=== PATIENT | female | born 1955 | race Hispanic/Latino ===

== ENCOUNTER 2018-06-01 08:54 | Outpatient (CLI) | payer MEDICARE ==
--- NOTE | 2018-06-02 07:59 | Magnetic Resonance Report ---
MR LOWER EXTREMITY NON-JOINT LEFT WITHOUT CONTRAST History: Mass in mid left thigh. Technique: Multisequence, multiplanar MRI without contrast was performed through the left thigh. Findings: No comparison. A marker has been placed in the posterior left thigh. Underlying this marker, there is moderate nonspecific subcutaneous edema suggesting a cellulitis. No IV contrast was administered which limits this exam but there is no evidence for mass or obvious fluid collection/abscess. There is normal signal within the right thigh musculature. The left femur is intact although there is suggestion of a chronic bony infarct in the distal femoral metaphysis which is incompletely evaluated on this exam. A moderate to large left knee effusion is also identified. Impression: Nonspecific subcutaneous edema in the posterior left thigh suggestive of a cellulitis. No obvious mass or abscess. 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 Moderate to large left knee effusion.
== END 2018-06-01 08:55 | disposition home or self-care (01) ==
LOC: MRI 08:54
PROVIDERS: ATTEND Surgery
DX: M25.462 Effusion, left knee (principal); J44.9 Chronic obstructive pulmonary disease, unspecified; E66.9 Obesity, unspecified; K21.9 Gastro-esophageal reflux disease without esophagitis; I11.0 Hypertensive heart disease with heart failure; I50.32 Chronic diastolic (congestive) heart failure; E11.9 Type 2 diabetes mellitus without complications; Z90.710 Acquired absence of both cervix and uterus; M19.90 Unspecified osteoarthritis, unspecified site

== ENCOUNTER 2018-06-15 12:11 | Emergency (ER) | payer MEDICARE ==
[2018-06-15] MEDS ORDERED: SOLU-Medrol IV ONE (12:35)
[2018-06-15] MEDS ORDERED: PROVENTIL IH ONE (12:35)
--- NOTE | 2018-06-15 12:36 | Emergency Department Report ---
ED General Adult HPI - General Chief complaint: Dyspnea/Respdistress Stated complaint: Time Seen by Provider: 06/15/18 12:26 Source: patient, RN notes reviewed, old records reviewed Mode of arrival: Stretcher Limitations: No Limitations - History of Present Illness Initial comments: Pulmonology: Dr. Julio Food Tray Assembler: Dr. Che This is a 63-year-old female with a past medical history of arthritis, asthma, congestive heart failure, COPD, home oxygen dependent, IVC filter, chronic respiratory failure on 3 L of home oxygen. Patient presents to the ER with a complaint of cough, shortness of breath and mucus production as well as sore throat. She reports a sore throat that started a few days ago, and began dripping "mucous and cold" into the back of her throat. She is being coughing more frequently and having increasing shortness of breath. She denies vomiting, diaphoresis. She has mild baseline lower extremity swelling which is not a new, worsening or different. She denies headache, neck pain, chest pain, abdominal pain, urinary symptoms. She has some chest wall discomfort with coughing, but otherwise does not have chest pain. Her symptoms are constant for the past couple days, they're not improving, they do not have exacerbating or relieving factors that she is aware of, they do not radiate anywhere. -: Gradual Location: mouth Quality: aching Consistency: constant Improves with: none Worsens with: none Associated Symptoms: cough, shortness of breath (acute on chronic), weakness ( chronic). denies: confusion, chest pain, diaphoresis, fever/chills, headaches, loss of appetite, malaise, nausea/vomiting, rash, seizure, syncope - Related Data Home Medications Medication Instructions Recorded Confirmed Last Taken Cholecalciferol (Vitamin D3) 50,000 unit PO QWEEK 09/05/13 02/25/18 01/03/14 [Vitamin D3] Loratadine [Claritin] 10 mg PO DAILY 09/05/13 02/25/18 01/10/14 Vitamin B 12 1,000 mcg PO DAILY 09/05/13 02/25/18 01/10/14 Carboxymethylcell/Glycerin/Pf 1 - 2 drop OU QID 11/04/14 02/25/18 Unknown [Refresh Optive Sensitive Drops 0.5/0.9%] Hydrocortisone [Proctozone-HC 2.5% 30 gm RC QDAY PRN 11/04/14 02/25/18 Unknown CREAM] Cyclobenzaprine HCl [Flexeril 5 MG 10 mg PO QHS 08/01/15 02/25/18 Unknown TAB] Montelukast [Singulair] 10 mg PO QDAY 12/29/15 02/25/18 Unknown Morphine ER [Ms Contin ER] 15 mg PO Q12H PRN 12/29/15 02/25/18 Unknown Calcium Carbonate [Tums] 200 mg PO Q6H PRN 05/23/16 02/25/18 Unknown Docusate Sodium [Colace CAP] 100 mg PO BID 02/25/18 02/25/18 Unknown Previous Rx's Medication Instructions Recorded Last Taken Type Lacosamide [Vimpat] 50 mg PO Q12HR #60 tablet 01/02/16 Unknown Rx ALBUTEROL NEB's [Proventil 0.083% 2.5 mg IH QIDRT nebu 03/01/18 Unknown Rx NEBS] Albuterol Sulfate [Albuterol 0.63% 0.63 mg IH TID PRN #100 vial.neb 03/01/18 Unknown Rx NEBS] Cyanocobalamin [Vitamin B-12] 1,000 mcg PO QDAY tablet 03/01/18 Unknown Rx Diltiazem HCl [Diltiazem ER] 120 mg PO DAILY #30 cap.er.deg 03/01/18 Unknown Rx Ergocalciferol [Vitamin D2] 50,000 unit PO Tu capsule 03/01/18 Unknown Rx Hypromellose [Isopto Tears 0.5%] 1 drops OU QID bottle 03/01/18 Unknown Rx Insulin Regular, Human Inj 5 unit SQ QAM #3 ml 03/01/18 Unknown Rx [NovoLIN R Inj] Lispro Insulin [Humalog] 0 unit SUB-Q ACHS units 03/01/18 Unknown Rx Montelukast [Singulair] 10 mg PO QPM #30 tablet 03/01/18 Unknown Rx PARoxetine [Paxil] 30 mg PO DAILY tablet 03/01/18 Unknown Rx Pantoprazole [Protonix TAB] 40 mg PO QDAY #30 tablet 03/01/18 Unknown Rx Potassium Chloride [K-Dur] 10 meq PO QDAY #30 tablet 03/01/18 Unknown Rx Tiotropium [Spiriva] 18 mcg IH QDAY #1 cap 03/01/18 Unknown Rx Torsemide [Demadex] 20 mg PO DAILY #30 tablet 03/01/18 Unknown Rx dilTIAZem CD [Cardizem CD] 120 mg PO QDAY capsule 03/01/18 Unknown Rx predniSONE [Prednisone] 20 mg PO DAILY #30 tab.ds.pk 03/01/18 Unknown Rx traZODone [Desyrel] 50 mg PO QHS tablet 03/01/18 Unknown Rx Arformoterol Nebu [Brovana Nebu] 15 mcg IH Q12HRT #60 ml 03/03/18 Unknown Rx Budesonide [Pulmicort Respules] 0.5 mg IH Q12HRT #60 nebu 03/03/18 Unknown Rx LORazepam [Ativan] 0.5 mg PO TID #21 tablet 03/03/18 Unknown Rx metOLazone [Zaroxolyn] 5 mg PO QDAY #30 tablet 03/03/18 Unknown Rx Albuterol Sulfate [Albuterol 0.63% 0.63 mg IH Q4HR PRN #2 ml 06/15/18 Unknown Rx NEBS] Albuterol Sulfate [Proair 90 mcg IH Q4HR PRN #2 aer.pow.ba 06/15/18 Unknown Rx Respiclick] Allergies Allergy/AdvReac Type Severity Reaction Status Date / Time aspartame Allergy Severe Anaphylaxis Verified 12/07/14 10:47 aspirin Allergy Severe Swelling Verified 12/07/14 10:47 chocolate flavor Allergy Severe Shortness Verified 12/07/14 10:47 of Breath ciprofloxacin [From Cipro] Allergy Severe Shortness Verified 12/07/14 10:47 of Breath diazepam [From Valium] Allergy Severe Shortness Verified 12/07/14 10:47 of Breath levofloxacin [From Levaquin] Allergy Severe Swelling Verified 12/07/14 10:47 Macrolide Antibiotics Allergy Severe Swelling Verified 12/07/14 10:47 midazolam HCl [From Versed] Allergy Severe Shortness Verified 12/07/14 10:47 of Breath monosodium glutamate Allergy Severe Swelling Verified 12/07/14 10:47 oxycodone HCl [From Percocet] Allergy Severe Swelling Verified 12/07/14 10:47 peach [Porter] Allergy Severe Swelling Verified 12/07/14 10:47 peanut Allergy Severe Swelling Verified 12/07/14 10:47 Phenothiazines Allergy Severe Swelling Verified 12/07/14 10:47 propoxyphene napsylate Allergy Severe Swelling Verified 12/07/14 10:47 [From Darcet-N 100] midazolam Allergy Intermediate Rash Verified 12/07/14 10:47 oxycodone [Oxycodone] Allergy Intermediate Rash Verified 12/07/14 10:47 promethazine Allergy Intermediate Nausea Verified 12/07/14 10:47 Fish Containing Products Allergy Anaphylaxis Verified 07/07/16 11:52 fluticasone propionate Allergy Shortness Verified 12/07/14 10:47 [From Flonase] of Breath povidone-iodine Allergy Rash Verified 12/07/14 10:47 [From Betadine] Salicylates * [Salicylates] Allergy Swelling Verified 12/07/14 10:47 soap [From Betadine] Allergy Rash Verified 12/07/14 10:47 Sulfa (Sulfonamide Allergy Swelling Verified 12/07/14 10:47 Antibiotics) Tetracyclines Allergy Swelling Verified 12/07/14 10:47 tomato [Tomato] Allergy Swelling Verified 12/07/14 10:47 acetaminophen AdvReac Swelling Verified 12/07/14 10:47 [From Darvocet-N 100] codeine AdvReac Nausea Verified 12/07/14 10:47 NSAIDS (Non-Steroidal AdvReac Nausea Verified 12/07/14 10:47 Anti-Inflamma propofol AdvReac Shortness Verified 12/07/14 10:47 of Breath all bread Allergy Swelling Uncoded 01/11/14 07:26 seafood Allergy Anaphylaxis Uncoded 10/07/13 15:40 citrus AdvReac Nausea Uncoded 09/06/13 11:29 dairy AdvReac Nausea Uncoded 09/06/13 11:29 oatmeal AdvReac Nausea Uncoded 09/06/13 11:29 ED Review of Systems ROS: Stated complaint: Other details as noted in HPI Constitutional: malaise. denies: fever Eyes: denies: eye discharge ENT: throat pain, congestion Respiratory: cough Cardiovascular: denies: syncope Gastrointestinal: denies: vomiting Musculoskeletal: arthralgia, myalgia Skin: denies: lesions ED Past Medical Hx - Past Medical History Hx Hypertension: Yes Hx Congestive Heart Failure: Yes Hx Diabetes: Yes Hx Deep Vein Thrombosis: No Hx Pulmonary Embolism: Yes Hx GERD: Yes Hx Liver Disease: Yes (fatty infiltration of liver and cholelithiasis) Hx Arthritis: Yes Hx Seizures: Yes Hx Psychiatric Treatment: Yes (anxiety) Hx Asthma: Yes Hx COPD: Yes Hx Dementia: No Additional medical history: thoracic spine pain, t-12 burst fracture; PE - Surgical History Hx Pacemaker: No Hx Internal Defibrillator: No Hx Cholecystectomy: Yes Additional Surgical History: hysterectomy, umbilical hernia; hip replacement. IVC Filter in left groin 2013 - Social History Smoking Status: Never Smoker Substance Use Type: None - Medications Home Medications: Home Medications Medication Instructions Recorded Confirmed Last Taken Type Cholecalciferol (Vitamin D3) 50,000 unit PO QWEEK 09/05/13 02/25/18 01/03/14 History [Vitamin D3] Loratadine [Claritin] 10 mg PO DAILY 09/05/13 02/25/18 01/10/14 History Vitamin B 12 1,000 mcg PO DAILY 09/05/13 02/25/18 01/10/14 History Carboxymethylcell/Glycerin/Pf 1 - 2 drop OU QID 11/04/14 02/25/18 Unknown History [Refresh Optive Sensitive Drops 0.5/0.9%] Hydrocortisone [Proctozone-HC 2.5% 30 gm RC QDAY PRN 11/04/14 02/25/18 Unknown History CREAM] Cyclobenzaprine HCl [Flexeril 5 MG 10 mg PO QHS 08/01/15 02/25/18 Unknown History TAB] Montelukast [Singulair] 10 mg PO QDAY 12/29/15 02/25/18 Unknown History Morphine ER [Ms Contin ER] 15 mg PO Q12H PRN 12/29/15 02/25/18 Unknown History Lacosamide [Vimpat] 50 mg PO Q12HR #60 tablet 01/02/16 02/25/18 Unknown Rx Calcium Carbonate [Tums] 200 mg PO Q6H PRN 05/23/16 02/25/18 Unknown History Docusate Sodium [Colace CAP] 100 mg PO BID 02/25/18 02/25/18 Unknown History ALBUTEROL NEB's [Proventil 0.083% 2.5 mg IH QIDRT nebu 03/01/18 Unknown Rx NEBS] Albuterol Sulfate [Albuterol 0.63% 0.63 mg IH TID PRN #100 vial.neb 03/01/18 Unknown Rx NEBS] Cyanocobalamin [Vitamin B-12] 1,000 mcg PO QDAY tablet 03/01/18 Unknown Rx Diltiazem HCl [Diltiazem ER] 120 mg PO DAILY #30 cap.er.deg 03/01/18 Unknown Rx Ergocalciferol [Vitamin D2] 50,000 unit PO Tu capsule 03/01/18 Unknown Rx Hypromellose [Isopto Tears 0.5%] 1 drops OU QID bottle 03/01/18 Unknown Rx Insulin Regular, Human Inj 5 unit SQ QAM #3 ml 03/01/18 Unknown Rx [NovoLIN R Inj] Lispro Insulin [Humalog] 0 unit SUB-Q ACHS units 03/01/18 Unknown Rx Montelukast [Singulair] 10 mg PO QPM #30 tablet 03/01/18 Unknown Rx PARoxetine [Paxil] 30 mg PO DAILY tablet 03/01/18 Unknown Rx Pantoprazole [Protonix TAB] 40 mg PO QDAY #30 tablet 03/01/18 Unknown Rx Potassium Chloride [K-Dur] 10 meq PO QDAY #30 tablet 03/01/18 Unknown Rx Tiotropium [Spiriva] 18 mcg IH QDAY #1 cap 03/01/18 Unknown Rx Torsemide [Demadex] 20 mg PO DAILY #30 tablet 03/01/18 Unknown Rx dilTIAZem CD [Cardizem CD] 120 mg PO QDAY capsule 03/01/18 Unknown Rx predniSONE [Prednisone] 20 mg PO DAILY #30 tab.ds.pk 03/01/18 Unknown Rx traZODone [Desyrel] 50 mg PO QHS tablet 03/01/18 Unknown Rx Arformoterol Nebu [Brovana Nebu] 15 mcg IH Q12HRT #60 ml 03/03/18 Unknown Rx Budesonide [Pulmicort Respules] 0.5 mg IH Q12HRT #60 nebu 03/03/18 Unknown Rx LORazepam [Ativan] 0.5 mg PO TID #21 tablet 03/03/18 Unknown Rx metOLazone [Zaroxolyn] 5 mg PO QDAY #30 tablet 03/03/18 Unknown Rx Albuterol Sulfate [Albuterol 0.63% 0.63 mg IH Q4HR PRN #2 ml 06/15/18 Unknown Rx NEBS] Albuterol Sulfate [Proair 90 mcg IH Q4HR PRN #2 aer.pow.ba 06/15/18 Unknown Rx Respiclick] ED Physical Exam - General Limitations: No Limitations General appearance: alert, in no apparent distress - Head Head exam: Present: atraumatic, normocephalic - Eye Eye exam: Present: normal appearance, EOMI. Absent: nystagmus - ENT ENT exam: Present: normal exam, normal orophraynx, mucous membranes moist, normal external ear exam, other (patient speaking in full sentences with no stridor or dysphonia. There is no tenderness with manipulation of the trachea, and there is no elevation of the base of the tongue.) - Neck Neck exam: Present: normal inspection, full ROM - Respiratory Respiratory exam: Present: decreased breath sounds. Absent: respiratory distress, wheezes, rales, rhonchi - Cardiovascular Cardiovascular Exam: Present: regular rate, normal rhythm, normal heart sounds. Absent: bradycardia, tachycardia, irregular rhythm, systolic murmur, diastolic murmur, rubs, gallop - GI/Abdominal GI/Abdominal exam: Present: soft. Absent: distended, tenderness, guarding, rebound, rigid, pulsatile mass - Extremities Exam Extremities exam: Present: normal inspection (2+ pulses noted in the bilateral upper, lower extremities. Compartments soft. No long bony tenderness. The pelvis is stable.), full ROM, pedal edema (1+ edema in the lower extremities.), other (there is no palpable cord. There is a negative Homans sign.). Absent: calf tenderness - Back Exam Back exam: Present: normal inspection, full ROM. Absent: tenderness, CVA tenderness (R), paraspinal tenderness, vertebral tenderness - Neurological Exam Neurological exam: Present: alert, oriented X3, CN II-XII intact, normal gait, other (Extraocular movements intact. Tongue midline. No facial droop. Facial sensation intact to light touch in the V1, V2, V3 distribution bilaterally. 5 and 5 strength in 4 extremities.. Sensation is intact to light touch in 4 extremities.). Absent: motor sensory deficit - Psychiatric Psychiatric exam: Present: normal affect, normal mood - Skin Skin exam: Present: warm, dry, intact, normal color. Absent: rash ED Course Vital Signs 06/15/18 06/15/18 06/15/18 12:29 12:53 13:00 Temperature 98.4 F Pulse Rate 91 H Pulse Rate [ 85 Anterior Bilateral Throughout] Respiratory 24 16 Rate Respiratory 15 Rate [Anterior Bilateral Throughout] Blood Pressure 112/71 O2 Sat by Pulse 97 97 Oximetry 06/15/18 06/15/18 06/15/18 13:45 14:31 15:00 Temperature Pulse Rate 111 H 96 H Pulse Rate [ 99 H Anterior Bilateral Throughout] Respiratory 17 20 Rate Respiratory 18 Rate [Anterior Bilateral Throughout] Blood Pressure 137/63 131/66 O2 Sat by Pulse 93 91 Oximetry 06/15/18 15:31 Temperature Pulse Rate 125 H Pulse Rate [ Anterior Bilateral Throughout] Respiratory 28 H Rate Respiratory Rate [Anterior Bilateral Throughout] Blood Pressure 131/66 O2 Sat by Pulse Oximetry - Reevaluation(s) Reevaluation #1: 06/15/18 14:54 The patient's physical exam is not consistent with fluid overload or herberth decompensated congestive heart failure, and based on her history of sore throat , cough, mucus production, I find the patient to be low risk clinically for recurrent thromboembolic disease. Reevaluation #2: 06/15/18 16:26 Patient has been observed in the ER 4 hours without clinical decompensation. She does not have wheezing at this time. She is resting comfortably on her stretcher. She will be discharged at this time. ED Medical Decision Making - Lab Data Result diagrams: 06/15/18 12:58 06/15/18 12:58 Vital Signs 06/15/18 06/15/18 06/15/18 12:29 12:53 13:00 Temperature 98.4 F Pulse Rate 91 H Pulse Rate [ 85 Anterior Bilateral Throughout] Respiratory 24 16 Rate Respiratory 15 Rate [Anterior Bilateral Throughout] Blood Pressure 112/71 O2 Sat by Pulse 97 97 Oximetry 06/15/18 13:45 Temperature Pulse Rate Pulse Rate [ 99 H Anterior Bilateral Throughout] Respiratory Rate Respiratory 18 Rate [Anterior Bilateral Throughout] Blood Pressure O2 Sat by Pulse Oximetry Lab Results 06/15/18 06/15/18 Range/Units 12:58 12:58 WBC 10.2 (4.5-11.0) K/mm3 RBC 4.51 (3.65-5.03) M/mm3 Hgb 14.2 (10.1-14.3) gm/dl Hct 42.0 (30.3-42.9) % MCV 93 (79-97) fl MCH 32 (28-32) pg MCHC 34 (30-34) % RDW 14.8 (13.2-15.2) % Plt Count 199 (140-440) K/mm3 Sodium 139 (137-145) mmol/L Potassium 3.3 L (3.6-5.0) mmol/L Chloride 92.9 L (98-107) mmol/L Carbon Dioxide 30 (22-30) mmol/L Anion Gap 19 mmol/L BUN 10 (7-17) mg/dL Creatinine 0.8 (0.7-1.2) mg/dL Estimated GFR > 60 ml/min BUN/Creatinine Ratio 13 % Glucose 179 H (65-100) mg/dL Calcium 9.0 (8.4-10.2) mg/dL Magnesium 2.10 (1.7-2.3) mg/dL - EKG Data EKG shows normal: sinus rhythm Rate: normal - EKG Data When compared to previous EKG there are: no significant change Interpretation: no acute changes 06/15/18 16:26 Sinus, 94 bpm, borderline left axis deviation, low voltage, poor R-wave progression, QTC prolonged, abnormal EKG, motion artifact, unchanged from her EKG 02/26/2018. Not a STEMI - Radiology Data Radiology results: report reviewed, image reviewed X-ray of the chest is negative for acute disease. Enlarged cardiac silhouette is noted - Medical Decision Making Differential diagnosis, including but not limited to: Bronchitis, pneumonia, COPD, pharyngitis Assessment and plan: 63-year-old female with sore throat but no fever, no exudates, positive cough and negative lymphadenopathy, low risk by Centor criteria, with probable viral syndrome, cough, and likely chronic progression of her underlying COPD. Laboratory studies are essentially unremarkable with the exception of mild hypokalemia which is repleted orally. Patient felt improved after viscous lidocaine and albuterol therapy. She is walking around the ER with no distress, and her vital signs have been stable while here in the emergency department. Patient at this point in time is sleeping comfortably on her stretcher, and does not require additional urgent medical intervention. She 'll be discharged with as needed albuterol, expectant management, and instructions to follow-up with her outpatient fire management specialist. Critical care attestation.: If time is entered above; I have spent that time in minutes in the direct care of this critically ill patient, excluding procedure time. ED Disposition Clinical Impression: Bronchitis Disposition: DC-01 TO HOME OR SELFCARE Is pt being admited?: No Does the pt Need Aspirin: No Condition: Stable Instructions: Chronic Bronchitis (ED) Additional Instructions: Continue current outpatient medications. Use salt water gargles as often as as needed for symptom of throat pain control. Symptoms of bronchitis, which is the most likely diagnosis for the patient, may last 4-6 weeks, and is typically no cure Please follow-up with your primary care doctor or fire management specialist within the next 10 days, and return to the ER right away with new pain, worsened pain, migration of pain, projectile vomiting, change in mental status, confusion, inability to tolerate liquid feeds. Prescriptions: Albuterol Sulfate [Albuterol 0.63% NEBS] 0.63 mg IH Q4HR PRN #2 ml PRN Reason: Wheezing Albuterol Sulfate [Proair Respiclick] 90 mcg IH Q4HR PRN #2 aer.pow.ba PRN Reason: Wheezing Referrals: PRIMARY CARE, [Primary Care Provider] - 3-5 Days SHANNAN LANDRUM MD [Staff Physician] - 3-5 Days
[2018-06-15] MEDS ORDERED: LIDOCAINE VISCOUS 2% MM NR (12:45)
[2018-06-15 13:13] LABS: Hemoglobin 14.2 gm/dl (10.1-14.3); Mean Corpuscular HGB Conc 34 % (30-34); Mean Corpuscular Hemoglobin 32 pg (28-32); Mean Corpuscular Volume 93 fl (79-97); Platelet Count 199 K/mm3 (140-440); Red Blood Count 4.51 M/mm3 (3.65-5.03); Red Cell Distribution Width 14.8 % (13.2-15.2)
[2018-06-15 13:22] LABS: BUN/Creatinine Ratio 13; Blood Urea Nitrogen 10 mg/dL (7-17); Hemolysis Index 11
--- NOTE | 2018-06-15 13:56 | XRay Report ---
AP CHEST: HISTORY: Cough, wheezing Mild cardiomegaly is unchanged since 02/25/18. The lungs are clear. No evidence for pneumonia, CHF or pneumothorax. Advanced degenerative changes are noted at the left shoulder. IMPRESSION: Cardiomegaly. Lungs clear.
[2018-06-15] MEDS ORDERED: K-DUR PO ONE (14:49)
[2018-06-15 17:58] VITALS: BP 139/58
== END 2018-06-15 18:09 | disposition home or self-care (01) ==
LOC: ED 12:11
DX: J40 Bronchitis, not specified as acute or chronic (principal); I11.0 Hypertensive heart disease with heart failure; E11.9 Type 2 diabetes mellitus without complications; K21.9 Gastro-esophageal reflux disease without esophagitis; F41.9 Anxiety disorder, unspecified; M19.90 Unspecified osteoarthritis, unspecified site; Z88.6 Allergy status to analgesic agent; Z86.711 Personal history of pulmonary embolism; Z91.018 Allergy to other foods; Z88.1 Allergy status to other antibiotic agents; Z91.010 Allergy to peanuts; Z91.013 Allergy to seafood; Z88.2 Allergy status to sulfonamides; Z88.5 Allergy status to narcotic agent; Z88.8 Allergy status to other drugs, medicaments and biological substances; Z90.49 Acquired absence of other specified parts of digestive tract; Z90.710 Acquired absence of both cervix and uterus
CPT/HCPCS: 36415; 71045; 80048; 83735; 85027; 93005; 93010; 94640; 96374; 99285; J2930; 94644

== ENCOUNTER 2018-06-20 10:10 | Day surgery (SDC) | payer MEDICARE ==
[2018-06-20] MEDS ORDERED: DUONEB *Not for PRN Use IH ONE (10:54)
[2018-06-20] MEDS ORDERED: LACTATED RINGERS 1,000 ML IV SCH (10:55)
[2018-06-20] MEDS ORDERED: MARCAINE 0.5% INFILTRATI ONE ×2 (11:28→13:03)
[2018-06-20] MEDS ORDERED: XYLOCAINE 1%/ EPI 1:100,000 INFILTRATI ONE ×2 (11:28→13:04)
[2018-06-20] MEDS ORDERED: XYLOCAINE MPF 2% ONE (11:31)
[2018-06-20] MEDS ORDERED: SUBLIMAZE ONE (11:31)
[2018-06-20] MEDS ORDERED: DIPRIVAN 10 MG/ML IV ONE ×2 (11:32→12:38)
--- NOTE | 2018-06-20 11:41 | Anesthesia Day of Surgery ---
Anesthesia Day of Surgery - Day of Surgery Patient Examined: Yes Patient H&P Reviewed: Yes Patient is NPO: Yes Beta Blockers: Yes
--- NOTE | 2018-06-20 11:41 | Anesthesia Consultation ---
Anesthesia Consult and Med Hx Date of service: 06/20/18 - Airway Anesthetic Teeth Evaluation: Dentures ROM Head & Neck: Adequate Mental/Hyoid Distance: Inadequate Mallampati Class: Class III Intubation Access Assessment: Possibly Difficult - Pulmonary Exam CTA: Yes - Cardiac Exam Cardiac Exam: RRR - Pre-Operative Health Status ASA Pre-Surgery Classification: ASA4 Proposed Anesthetic Plan: General - Pulmonary Hx Smoking: No Hx Asthma: Yes Hx Respiratory Symptoms: Yes (Hx PE 5 yrs ago, has IVC filter; no anticoagulation) COPD: Yes Home Oxygen Therapy: Yes (3L NC at all times) Hx Sleep Apnea: Yes (+ CPAP) - Cardiovascular System Hx Hypertension: Yes (Hx dCHF) Hx Heart Attack/AMI: No Hx Pacemaker: No Hx Internal Defibrillator: No - Central Nervous System Hx Seizures: Yes (last 1 yr ago) CVA: No Hx Psychiatric Problems: Yes (anxiety) - Gastrointestinal Hx Gastroesophageal Reflux Disease: Yes (asymptomatic today) - Endocrine Hx Renal Disease: No Hx Liver Disease: No Hx Insulin Dependent Diabetes: Yes Hx Thyroid Disease: No - Other Systems Hx Alcohol Use: No Hx Substance Use: No Hx Cancer: No Hx Obesity: Yes - Additional Comments Anesthesia Medical History Comments: Will plan to use home CPAP in PACU. Discussed possible overnight admission if increase O2 requirements. Discussed possibility of post-op ventilation if unable to safely liberate from ventilator post-op.
[2018-06-20] MEDS ORDERED: ANCEF ONE (12:59)
[2018-06-20] MEDS ORDERED: NACL 0.9% IR ONE (13:06)
[2018-06-20] MEDS ORDERED: ZOFRAN ONE (13:26)
--- NOTE | 2018-06-20 13:34 | Discharge Summary ---
Short Stay Discharge Plan Activity: advance as tolerated Weight Bearing Status: Touch Down Weight Bearing Diet: low cholesterol, diabetic Wound: per your surgeon's advice Durable Medical Equipment Needed Upon Discharge: Wheelchair Follow up with: ED MUNIZ MD [Primary Care Provider] - 7 Days
--- NOTE | 2018-06-20 13:36 | Procedure Note ---
Date of procedure: 06/20/18 Procedure: wide excision of multilobulated firm mass post lower L thigh, under GA Estimated blood loss: minimal Pathology: list Specimen disposition: to lab Condition: stable Disposition: same day
--- NOTE | 2018-06-20 13:58 | Operative Report ---
FINDINGS: Firm tissue in the posterior lower thigh on the left side, it is very large. It measured about 4 x 4 x 2 cm. It may be coming from the brace that she is taking. Within the tissue itself I could see 2 or 3 pockets of purulent material. We took culture from the tissue itself. SURGERY: Excision of mass. ANESTHESIA: General. BLOOD LOSS: Minimal. FINDINGS: As above. DESCRIPTION OF PROCEDURE: With the patient in the right decubitus position, after cleansing and draping in usual fashion. We were able to expose the area in the left posterior thigh. After prepping and draping, I made a longitudinal incision over the mass itself deep subcutaneous tissue and then I was able to go around it. It looks very firm fibrotic tissue. The patient gives a history of pus coming out on 2 occasions in the past from that same area. She is afebrile. She is known case of diabetes. She is on a wheelchair. She use a brace also to walk sometimes, so once I was there through the skin incision, I was able to go around it slowly using the Bovie and then with its center I could see 2 small pockets each about 5-6 mm of pus there. The area specifically was sent for culture and sensitivity. Then, I was able to remove the whole thing with good hemostasis using caudal cautery. I left the wound half open. Closing it with a [id number] sutures using for that purpose 2-0 nylon and a bandage. I did put a bandage and a wrap. We may need to keep her as per recommendation of Pulmonology. She is a known case of severe COPD. She is on oxygen at home. She has diabetes and she is obese. JOB# [id number] CHUYITA/SEA
[2018-06-20 15:02] LABS: Creatine Kinase MB 2.5 ng/mL (0.0-4.0)
[2018-06-20] MEDS ORDERED: TYLENOL ONE (15:22)
--- NOTE | 2018-06-20 15:30 | Post Anesthesia Evaluation ---
- Post Anesthesia Evaluation Patient Participated: Yes Airway Patent: Yes Stable Respiratory Function: Yes (on baseline O2 requirement of 3L) Nausea/Vomiting: No Temp > 96.8F: Yes Pain Manageable: Yes Adequeate Hydration: Yes Anesthesia Complications: No Other Comments: Complained of chest heaviness similar to past events which were determined to be non-cardiac in origin. 12-lead EKG without ST segment changes. Troponin neg. Maintained SpO2 at preop baseline on home CPAP settings and on 3L NC. Pain resolved and respiratory status stable at time of d/c.
[2018-06-20 15:44] VITALS: BP 136/59
== END 2018-06-20 16:50 | disposition other institution (70) ==
LOC: OR 10:10
PROVIDERS: ATTEND Surgery
DX: D17.24 Benign lipomatous neoplasm of skin and subcutaneous tissue of left leg (principal); M79.89 Other specified soft tissue disorders; G40.909 Epilepsy, unspecified, not intractable, without status epilepticus; J44.9 Chronic obstructive pulmonary disease, unspecified; F41.9 Anxiety disorder, unspecified; M81.0 Age-related osteoporosis without current pathological fracture; M19.90 Unspecified osteoarthritis, unspecified site; K21.9 Gastro-esophageal reflux disease without esophagitis; I11.0 Hypertensive heart disease with heart failure; I50.32 Chronic diastolic (congestive) heart failure; E11.9 Type 2 diabetes mellitus without complications; E66.2 Morbid (severe) obesity with alveolar hypoventilation; F32.9 Major depressive disorder, single episode, unspecified; Z88.6 Allergy status to analgesic agent; Z88.8 Allergy status to other drugs, medicaments and biological substances; Z68.42 Body mass index [BMI] 45.0-49.9, adult; Z98.42 Cataract extraction status, left eye; Z98.41 Cataract extraction status, right eye; Z98.890 Other specified postprocedural states; Z90.49 Acquired absence of other specified parts of digestive tract; Z90.710 Acquired absence of both cervix and uterus; Z79.899 Other long term (current) drug therapy; Z88.2 Allergy status to sulfonamides; Z88.5 Allergy status to narcotic agent; Z91.010 Allergy to peanuts; Z91.013 Allergy to seafood
CPT/HCPCS: 27347; 36415; 82550; 82553; 82962; 84484; 87076; 87116; 87186; 88304; 88312; 93005; 93010; J0690; J2405; J2704; J3010; J7120; 88305

== ENCOUNTER 2018-07-11 12:28 | Emergency (ER) | payer MEDICARE ==
[2018-07-11 12:47] VITALS: BP 119/63
[2018-07-11] MEDS ORDERED: TORADOL IM ONE (13:34)
[2018-07-11] MEDS ORDERED: ZOFRAN ODT PO ONE (13:34)
--- NOTE | 2018-07-11 13:36 | XRay Report ---
RIGHT SHOULDER, 3 VIEWS: HISTORY: right shoulder pain. Normal bone mineralization. No acute osseous injury or joint pathology is detected. The soft tissues are unremarkable. IMPRESSION: Right shoulder within normal limits.
--- NOTE | 2018-07-11 13:48 | Emergency Department Report ---
ED Upper Extremity Inj HPI - General Chief Complaint: Extremity Problem,Nontraumatic Stated Complaint: RIGHT SHOULDER PAIN Time Seen by Provider: 07/11/18 12:47 Source: patient Mode of arrival: Ambulatory Limitations: No Limitations - History of Present Illness Initial Comments: 63-year-old female the past medical history of arthritis and chronic medical conditions presents to the hospital worsening right shoulder pain. Patient has arthritis of multiple joints and is currently in pain management. She takes morphine 15 mg when necessary. The last several months she has had progressively worsening right shoulder pain. In the last several days status more severe and she has very limited range of motion at this time. Patient's pain rate 8/10 intensity, constant, aching, worse with palpation and movement in any direction. She denies recent fall, trauma, fever, or chills. She is right-hand dominant. She has had previous history of cortisone injections in the shoulder performed by her orthopedic surgeon (last injection 3 months). orthopedics MD Dr. Loza - Related Data Home Medications Medication Instructions Recorded Confirmed Last Taken Loratadine [Claritin] 10 mg PO DAILY 09/05/13 06/16/18 06/19/18 Carboxymethylcell/Glycerin/Pf 1 - 2 drop OU QID 11/04/14 06/16/18 06/19/18 [Refresh Optive Sensitive Drops 0.5/0.9%] Hydrocortisone [Proctozone-HC 2.5% 30 gm RC QDAY PRN 11/04/14 06/16/18 06/19/18 CREAM] Cyclobenzaprine HCl [Flexeril 5 MG 10 mg PO QHS 08/01/15 06/16/18 06/19/18 TAB] Calcium Carbonate [Tums] 200 mg PO Q6H PRN 05/23/16 06/16/18 06/19/18 Docusate Sodium [Colace CAP] 100 mg PO BID 02/25/18 06/16/18 06/19/18 Acetaminophen [Acetaminophen ER 650 mg PO Q8HR PRN 06/16/18 06/16/18 06/19/18 TAB] Ergocalciferol [Vitamin D2] 50,000 unit PO QWEEK 06/16/18 06/20/18 Unknown Linagliptin [Tradjenta] 5 mg PO QDAY 06/16/18 06/16/18 06/19/18 Magnesium Hydroxide [Vivas' 400 mg PO PRN PRN 06/16/18 06/16/18 06/19/18 Milk of Magnesia] Ondansetron [Zofran TAB] 4 mg PO Q8HR PRN 06/16/18 06/16/18 06/19/18 Pantoprazole [Protonix] 40 mg PO QDAY 06/16/18 06/16/18 06/19/18 Polyvinyl Alcohol [Tearfair 1%] 1 - 2 drop OP PRN 06/16/18 06/16/18 06/19/18 Potassium Chloride [Klor-Con M10] 10 meq PO DAILY 06/16/18 06/16/18 06/19/18 Triamcinolone Acetonide [Nasacort 16.9 ml NS DAILY 06/16/18 06/16/18 06/19/18 SPRAY] Previous Rx's Medication Instructions Recorded Last Taken Type Lacosamide [Vimpat] 50 mg PO Q12HR #60 tablet 01/02/16 06/20/18 08:30 Rx ALBUTEROL NEB's [Proventil 0.083% 2.5 mg IH QIDRT nebu 03/01/18 06/19/18 Rx NEBS] Cyanocobalamin [Vitamin B-12] 1,000 mcg PO QDAY tablet 03/01/18 06/19/18 Rx Diltiazem HCl [Diltiazem ER] 120 mg PO DAILY #30 cap.er.deg 03/01/18 06/20/18 08 :30 Rx Lispro Insulin [Humalog] 0 unit SUB-Q ACHS units 03/01/18 06/19/18 Rx Montelukast [Singulair] 10 mg PO QPM #30 tablet 03/01/18 06/19/18 Rx PARoxetine [Paxil] 30 mg PO DAILY tablet 03/01/18 06/20/18 08:30 Rx Torsemide [Demadex] 20 mg PO DAILY #30 tablet 03/01/18 06/19/18 Rx predniSONE [Prednisone] 20 mg PO DAILY #30 tab.ds.pk 03/01/18 06/20/18 08:30 Rx Budesonide [Pulmicort Respules] 0.5 mg IH Q12HRT #60 nebu 03/03/18 06/19/18 Rx LORazepam [Ativan] 0.5 mg PO TID #21 tablet 03/03/18 06/19/18 Rx metOLazone [Zaroxolyn] 5 mg PO QDAY #30 tablet 03/03/18 06/19/18 Rx Albuterol Sulfate [Albuterol 0.63% 0.63 mg IH Q4HR PRN #2 ml 06/15/18 06/19/18 Rx NEBS] Albuterol Sulfate [Proair 90 mcg IH Q4HR PRN #2 aer.pow.ba 06/15/18 06/19/18 Rx Respiclick] Allergies Allergy/AdvReac Type Severity Reaction Status Date / Time aspartame Allergy Severe Anaphylaxis Verified 06/16/18 17:41 aspirin Allergy Severe Swelling Verified 06/16/18 17:41 chocolate flavor Allergy Severe Shortness Verified 06/16/18 17:41 of Breath ciprofloxacin [From Cipro] Allergy Severe Shortness Verified 06/16/18 17:41 of Breath diazepam [From Valium] Allergy Severe Shortness Verified 06/16/18 17:41 of Breath levofloxacin [From Levaquin] Allergy Severe Swelling Verified 06/16/18 17:41 Macrolide Antibiotics Allergy Severe Swelling Verified 06/16/18 17:41 midazolam HCl [From Versed] Allergy Severe Shortness Verified 06/16/18 17:41 of Breath monosodium glutamate Allergy Severe Swelling Verified 06/16/18 17:41 oxycodone HCl [From Percocet] Allergy Severe Swelling Verified 06/16/18 17:41 peach [Lake] Allergy Severe Swelling Verified 06/16/18 17:41 peanut Allergy Severe Swelling Verified 06/16/18 17:41 Phenothiazines Allergy Severe Swelling Verified 06/16/18 17:41 propoxyphene napsylate Allergy Severe Swelling Verified 06/16/18 17:41 [From Darvocet-N 100] midazolam Allergy Intermediate Rash Verified 06/16/18 17:41 oxycodone [Oxycodone] Allergy Intermediate Rash Verified 06/16/18 17:41 promethazine Allergy Intermediate Nausea Verified 06/16/18 17:41 Fish Containing Products Allergy Anaphylaxis Verified 06/16/18 17:41 fluticasone propionate Allergy Shortness Verified 06/16/18 17:41 [From Flonase] of Breath povidone-iodine Allergy Rash Verified 06/16/18 17:41 [From Betadine] Salicylates * [Salicylates] Allergy Swelling Verified 06/16/18 17:41 soap [From Betadine] Allergy Rash Verified 06/16/18 17:41 Sulfa (Sulfonamide Allergy Swelling Verified 06/16/18 17:41 Antibiotics) Tetracyclines Allergy Swelling Verified 06/16/18 17:41 tomato [Tomato] Allergy Swelling Verified 06/16/18 17:41 acetaminophen AdvReac Swelling Verified 06/16/18 17:41 [From Darvocet-N 100] codeine AdvReac Nausea Verified 06/16/18 17:41 NSAIDS (Non-Steroidal AdvReac Nausea Verified 06/16/18 17:41 Anti-Inflamma propofol AdvReac Shortness Verified 06/16/18 17:41 of Breath all bread Allergy Swelling Uncoded 06/16/18 17:41 seafood Allergy Anaphylaxis Uncoded 06/16/18 17:41 citrus AdvReac Nausea Uncoded 06/16/18 17:41 dairy AdvReac Nausea Uncoded 06/16/18 17:41 oatmeal AdvReac Nausea Uncoded 06/16/18 17:41 Z-PACK AdvReac Unknown Uncoded 06/20/18 12:03 ED Review of Systems ROS: Stated complaint: RIGHT SHOULDER PAIN Other details as noted in HPI ED Past Medical Hx - Past Medical History Hx Hypertension: Yes (Hx dCHF) Hx Heart Attack/AMI: No Hx Congestive Heart Failure: Yes Hx Diabetes: Yes Hx Deep Vein Thrombosis: No Hx Pulmonary Embolism: Yes Hx GERD: Yes Hx Liver Disease: No Hx Renal Disease: No Hx Arthritis: Yes Hx Seizures: Yes (last 1 yr ago) Hx Psychiatric Treatment: Yes (anxiety) Hx Asthma: Yes Hx COPD: Yes Hx Dementia: No Additional medical history: thoracic spine pain, t-12 burst fracture; PE - Surgical History Hx Pacemaker: No Hx Internal Defibrillator: No Hx Cholecystectomy: Yes Additional Surgical History: hysterectomy, umbilical hernia; hip replacement. IVC Filter in left groin 2012 - Social History Smoking Status: Never Smoker Substance Use Type: None - Medications Home Medications: Home Medications Medication Instructions Recorded Confirmed Last Taken Type Loratadine [Claritin] 10 mg PO DAILY 09/05/13 06/16/18 06/19/18 History Carboxymethylcell/Glycerin/Pf 1 - 2 drop OU QID 11/04/14 06/16/18 06/19/18 History [Refresh Optive Sensitive Drops 0.5/0.9%] Hydrocortisone [Proctozone-HC 2.5% 30 gm RC QDAY PRN 11/04/14 06/16/18 06/19/18 History CREAM] Cyclobenzaprine HCl [Flexeril 5 MG 10 mg PO QHS 08/01/15 06/16/18 06/19/18 History TAB] Lacosamide [Vimpat] 50 mg PO Q12HR #60 tablet 01/02/16 06/16/18 06/20/18 08:30 Rx Calcium Carbonate [Tums] 200 mg PO Q6H PRN 05/23/16 06/16/18 06/19/18 History Docusate Sodium [Colace CAP] 100 mg PO BID 02/25/18 06/16/18 06/19/18 History ALBUTEROL NEB's [Proventil 0.083% 2.5 mg IH QIDRT nebu 03/01/18 06/16/18 Rx NEBS] Cyanocobalamin [Vitamin B-12] 1,000 mcg PO QDAY tablet 03/01/18 06/16/18 Rx Diltiazem HCl [Diltiazem ER] 120 mg PO DAILY #30 cap.er.deg 03/01/18 06/16/18 08:30 Rx Lispro Insulin [Humalog] 0 unit SUB-Q ACHS units 03/01/18 06/16/18 06/19/18 Rx Montelukast [Singulair] 10 mg PO QPM #30 tablet 03/01/18 06/20/18 06/19/18 Rx PARoxetine [Paxil] 30 mg PO DAILY tablet 03/01/18 06/16/18 06/20/18 08:30 Rx Torsemide [Demadex] 20 mg PO DAILY #30 tablet 03/01/18 06/16/18 06/19/18 Rx predniSONE [Prednisone] 20 mg PO DAILY #30 tab.ds.pk 03/01/18 06/16/18 06/20/18 08:30 Rx Budesonide [Pulmicort Respules] 0.5 mg IH Q12HRT #60 nebu 03/03/18 06/16/1806/28 Rx LORazepam [Ativan] 0.5 mg PO TID #21 tablet 03/03/18 06/16/18 06/19/18 Rx metOLazone [Zaroxolyn] 5 mg PO QDAY #30 tablet 03/03/18 06/16/18 06/19/18 Rx Albuterol Sulfate [Albuterol 0.63% 0.63 mg IH Q4HR PRN #2 ml 06/15/18 06/16/18 06/19/18 Rx NEBS] Albuterol Sulfate [Proair 90 mcg IH Q4HR PRN #2 aer.pow.ba 06/15/18 06/16/1806/28 Rx Respiclick] Acetaminophen [Acetaminophen ER 650 mg PO Q8HR PRN 06/16/18 06/16/18 06/19/18 History TAB] Ergocalciferol [Vitamin D2] 50,000 unit PO QWEEK 06/16/18 06/20/18 Unknown History Linagliptin [Tradjenta] 5 mg PO QDAY 06/16/18 06/16/18 06/19/18 History Magnesium Hydroxide [Vivas' 400 mg PO PRN PRN 06/16/18 06/16/18 06/19/18 History Milk of Magnesia] Ondansetron [Zofran TAB] 4 mg PO Q8HR PRN 06/16/18 06/16/18 06/19/18 History Pantoprazole [Protonix] 40 mg PO QDAY 06/16/18 06/16/18 06/19/18 History Polyvinyl Alcohol [Tearfair 1%] 1 - 2 drop OP PRN 06/16/18 06/16/18 06/19/18 History Potassium Chloride [Klor-Con M10] 10 meq PO DAILY 06/16/18 06/16/18 06/19/18 History Triamcinolone Acetonide [Nasacort 16.9 ml NS DAILY 06/16/18 06/16/18 06/19/18 History SPRAY] ED Physical Exam - General Limitations: No Limitations - Other Other exam information: General: No limitations, patient is alert in no acute distress Head exam: Atraumatic, normocephalic Eyes exam: Normal appearance ENT: Moist mucous membrane, normal oropharynx Neck exam: Normal inspection, full range of motion Respiratory exam: Clear to auscultation bilateral, no wheezes, rales, crackles Cardiovascular: Normal rate and rhythm, normal heart sounds Abdomen: Soft, nondistended, and nontender, with normal bowel sounds, no rebound, or guarding Extremity: Tenderness to anterior right shoulder joint. No warmth, edema, or swelling. Limited external rotation and abduction secondary to pain. 2+ radial pulses Back: Normal Inspection, full range of motion, no tenderness Neurologic: Alert, oriented x3, cranial nerves intact, no motor or sensory deficit Psychiatric: normal affect, normal mood Skin: Warm, dry, intact ED Course Vital Signs 07/11/18 12:42 Temperature 98.3 F Pulse Rate 82 Respiratory 16 Rate Blood Pressure 119/63 O2 Sat by Pulse 98 Oximetry ED Medical Decision Making - Radiology Data Radiology results: report reviewed RIGHT SHOULDER, 3 VIEWS: HISTORY: right shoulder pain. Normal bone mineralization. No acute osseous injury or joint pathology is detected. The soft tissues are unremarkable. IMPRESSION: Right shoulder within normal limits. - Medical Decision Making Right shoulder x-ray within normal limits. Nontraumatic pain. No warmth, erythema, or fever to suggest infection. History of ongoing chronic arthritis related pain. Toradol and Zofran provided. Sling provided for comfort. Orthopedic follow-up encouraged. Patient chronically on morphine and meloxicam (recently started by pmd) instructed to continue these meds - Differential Diagnosis bursitis, arthritis, septic arthritis, tendinitis, fracture, dislocation Critical Care Time: No Critical care attestation.: If time is entered above; I have spent that time in minutes in the direct care of this critically ill patient, excluding procedure time. ED Disposition Clinical Impression: Right shoulder pain, Arthritis Disposition: - TO HOME OR SELFCARE Is pt being admited?: No Condition: Stable Instructions: Adhesive Capsulitis (ED) Additional Instructions: Continue current medications. Follow up with your orthopedic doctor. Return if symptoms worsen as indicated by your discharge instructions Referrals: HONEY VANCE MD [Referring] - 3-5 Days (orthopedics) Time of Disposition: 14:27
== END 2018-07-11 17:02 | disposition home or self-care (01) ==
LOC: ED 12:28
DX: M25.511 Pain in right shoulder (principal); M19.90 Unspecified osteoarthritis, unspecified site; I11.0 Hypertensive heart disease with heart failure; I50.9 Heart failure, unspecified; E11.9 Type 2 diabetes mellitus without complications; K21.9 Gastro-esophageal reflux disease without esophagitis; J44.9 Chronic obstructive pulmonary disease, unspecified; Z90.710 Acquired absence of both cervix and uterus; Z90.49 Acquired absence of other specified parts of digestive tract; Z88.6 Allergy status to analgesic agent; Z88.1 Allergy status to other antibiotic agents; Z91.011 Allergy to milk products; Z88.0 Allergy status to penicillin; Z88.2 Allergy status to sulfonamides; Z88.8 Allergy status to other drugs, medicaments and biological substances; Z91.018 Allergy to other foods
CPT/HCPCS: 73030; 96372; 99283; J1885; Q0162

== ENCOUNTER 2018-10-10 09:36 | Outpatient (CLI) | payer MEDICARE ==
[2018-10-10] MEDS ORDERED: XYLOCAINE TOPICAL 4% TP ONE (10:16)
== END 2018-10-10 09:37 | disposition home or self-care (01) ==
LOC: WOUND 09:36
PROVIDERS: ATTEND Surgery
DX: E11.622 Type 2 diabetes mellitus with other skin ulcer (principal); L97.122 Non-pressure chronic ulcer of left thigh with fat layer exposed; E66.9 Obesity, unspecified; Z68.41 Body mass index [BMI] 40.0-44.9, adult
CPT/HCPCS: 97605

== ENCOUNTER 2018-10-14 12:44 | Outpatient (CLI) | payer MEDICARE | END 2018-10-14 12:45 | disposition home or self-care (01) | LOC: WOUND 12:44 | CPT/HCPCS: 97605 ==

== ENCOUNTER 2018-10-20 10:45 | Outpatient (CLI) | payer MEDICARE | END 2018-10-20 10:46 | disposition home or self-care (01) | LOC: WOUND 10:45 | CPT/HCPCS: 97605 ==

== ENCOUNTER 2018-10-25 08:23 | Outpatient (CLI) | payer MEDICARE ==
[2018-10-25] MEDS ORDERED: XYLOCAINE TOPICAL 4% TP ONE (08:38)
== END 2018-10-25 08:24 | disposition home or self-care (01) ==
LOC: WOUND 08:23
PROVIDERS: ATTEND Surgery
DX: T81.89XD Other complications of procedures, not elsewhere classified, subsequent encounter (principal); E11.622 Type 2 diabetes mellitus with other skin ulcer; L97.122 Non-pressure chronic ulcer of left thigh with fat layer exposed; E66.9 Obesity, unspecified; Z68.41 Body mass index [BMI] 40.0-44.9, adult; Y83.8 Other surgical procedures as the cause of abnormal reaction of the patient, or of later complication, without mention of misadventure at the time of the procedure
CPT/HCPCS: 97605

== ENCOUNTER 2018-10-27 10:20 | Outpatient (CLI) | payer MEDICARE | END 2018-10-27 10:21 | disposition home or self-care (01) | LOC: WOUND 10:20 | CPT/HCPCS: 97605 ==

== ENCOUNTER 2018-11-10 10:23 | Outpatient (CLI) | payer MEDICARE | END 2018-11-10 10:24 | disposition home or self-care (01) | LOC: WOUND 10:23 | CPT/HCPCS: 97605 ==

== ENCOUNTER 2018-11-14 09:33 | Outpatient (CLI) | payer MEDICARE | END 2018-11-14 09:34 | disposition home or self-care (01) | LOC: WOUND 09:33 | CPT/HCPCS: 99215; G0463 ==

== ENCOUNTER 2018-11-21 09:17 | Outpatient (CLI) | payer MEDICARE | END 2018-11-21 09:18 | disposition home or self-care (01) | LOC: WOUND 09:17 | CPT/HCPCS: 11042; G0463; 99215 ==

== ENCOUNTER 2018-11-28 09:20 | Outpatient (CLI) | payer MEDICARE ==
[2018-11-28] MEDS ORDERED: XYLOCAINE TOPICAL 4% TP ONE (10:09)
[2018-11-28] MEDS ORDERED: SILVER NITRATE TP ONE (10:28)
== END 2018-11-28 09:21 | disposition home or self-care (01) ==
LOC: WOUND 09:20
PROVIDERS: ATTEND Surgery
DX: T81.89XD Other complications of procedures, not elsewhere classified, subsequent encounter (principal); E11.622 Type 2 diabetes mellitus with other skin ulcer; L97.122 Non-pressure chronic ulcer of left thigh with fat layer exposed; Y83.8 Other surgical procedures as the cause of abnormal reaction of the patient, or of later complication, without mention of misadventure at the time of the procedure

== ENCOUNTER 2018-12-05 09:18 | Outpatient (CLI) | payer MEDICARE | END 2018-12-05 09:19 | disposition home or self-care (01) | LOC: WOUND 09:18 ==

== ENCOUNTER 2018-12-12 09:10 | Outpatient (CLI) | payer MEDICARE | END 2018-12-12 09:11 | disposition home or self-care (01) | LOC: WOUND 09:10 | CPT/HCPCS: 99215; G0463 ==

== ENCOUNTER 2018-12-19 09:37 | Outpatient (CLI) | payer MEDICARE ==
[2018-12-19] MEDS ORDERED: XYLOCAINE TOPICAL 4% TP ONE (10:00)
== END 2018-12-19 09:38 | disposition home or self-care (01) ==
LOC: WOUND 09:37
PROVIDERS: ATTEND Surgery
DX: T81.89XD Other complications of procedures, not elsewhere classified, subsequent encounter (principal); E11.9 Type 2 diabetes mellitus without complications; E66.9 Obesity, unspecified; Z68.37 Body mass index [BMI] 37.0-37.9, adult; Y83.8 Other surgical procedures as the cause of abnormal reaction of the patient, or of later complication, without mention of misadventure at the time of the procedure
CPT/HCPCS: 99214; G0463

== ENCOUNTER 2018-12-26 09:23 | Outpatient (CLI) | payer MEDICARE ==
[2018-12-26] MEDS ORDERED: XYLOCAINE TOPICAL 2% 30ML TP ONE (11:00)
== END 2018-12-26 09:24 | disposition home or self-care (01) ==
LOC: WOUND 09:23
PROVIDERS: ATTEND Surgery
DX: T81.89XD Other complications of procedures, not elsewhere classified, subsequent encounter (principal); E11.622 Type 2 diabetes mellitus with other skin ulcer; L97.122 Non-pressure chronic ulcer of left thigh with fat layer exposed; E66.9 Obesity, unspecified; Z68.36 Body mass index [BMI] 36.0-36.9, adult; Y83.8 Other surgical procedures as the cause of abnormal reaction of the patient, or of later complication, without mention of misadventure at the time of the procedure

== ENCOUNTER 2019-01-02 09:31 | Outpatient (CLI) | payer MEDICARE ==
[2019-01-02] MEDS ORDERED: XYLOCAINE TOPICAL 4% TP ONE (10:10)
== END 2019-01-02 09:32 | disposition home or self-care (01) ==
LOC: WOUND 09:31
PROVIDERS: ATTEND Surgery
DX: T81.89XD Other complications of procedures, not elsewhere classified, subsequent encounter (principal); E11.622 Type 2 diabetes mellitus with other skin ulcer; L97.122 Non-pressure chronic ulcer of left thigh with fat layer exposed; E66.9 Obesity, unspecified; Z68.36 Body mass index [BMI] 36.0-36.9, adult; Y83.8 Other surgical procedures as the cause of abnormal reaction of the patient, or of later complication, without mention of misadventure at the time of the procedure
CPT/HCPCS: 99213; G0463

== ENCOUNTER 2019-01-09 10:15 | Outpatient (CLI) | payer MEDICARE | END 2019-01-09 10:16 | disposition home or self-care (01) | LOC: WOUND 10:15 | PROVIDERS: ATTEND Surgery | DX: T81.89XD Other complications of procedures, not elsewhere classified, subsequent encounter (principal); E11.622 Type 2 diabetes mellitus with other skin ulcer; L97.122 Non-pressure chronic ulcer of left thigh with fat layer exposed; Y83.8 Other surgical procedures as the cause of abnormal reaction of the patient, or of later complication, without mention of misadventure at the time of the procedure | CPT/HCPCS: 99213; G0463 ==

== ENCOUNTER 2019-01-16 09:06 | Outpatient (CLI) | payer MEDICARE | END 2019-01-16 09:07 | disposition home or self-care (01) | LOC: WOUND 09:06 | PROVIDERS: ATTEND Surgery | DX: T81.89XD Other complications of procedures, not elsewhere classified, subsequent encounter (principal); E11.622 Type 2 diabetes mellitus with other skin ulcer; L97.122 Non-pressure chronic ulcer of left thigh with fat layer exposed; Y83.8 Other surgical procedures as the cause of abnormal reaction of the patient, or of later complication, without mention of misadventure at the time of the procedure ==

== ENCOUNTER 2019-01-23 09:13 | Outpatient (CLI) | payer MEDICARE ==
[2019-01-23] MEDS ORDERED: SILVER NITRATE TP ONE (11:00)
[2019-01-23] MEDS ORDERED: XYLOCAINE 1%/ EPI 1:100,000 INFILTRATI ONE (11:32)
== END 2019-01-23 09:14 | disposition home or self-care (01) ==
LOC: WOUND 09:13
PROVIDERS: ATTEND Surgery
DX: T81.89XD Other complications of procedures, not elsewhere classified, subsequent encounter (principal); E11.622 Type 2 diabetes mellitus with other skin ulcer; L97.122 Non-pressure chronic ulcer of left thigh with fat layer exposed; E66.9 Obesity, unspecified; Z68.36 Body mass index [BMI] 36.0-36.9, adult; Y83.8 Other surgical procedures as the cause of abnormal reaction of the patient, or of later complication, without mention of misadventure at the time of the procedure

== ENCOUNTER 2019-01-30 10:17 | Outpatient (CLI) | payer MEDICARE ==
[2019-01-30] MEDS ORDERED: XYLOCAINE TOPICAL 4% TP ONE (10:25)
== END 2019-01-30 10:18 | disposition home or self-care (01) ==
LOC: WOUND 10:17
PROVIDERS: ATTEND Surgery
DX: T81.89XD Other complications of procedures, not elsewhere classified, subsequent encounter (principal); E11.622 Type 2 diabetes mellitus with other skin ulcer; L97.212 Non-pressure chronic ulcer of right calf with fat layer exposed; E66.9 Obesity, unspecified; Z68.35 Body mass index [BMI] 35.0-35.9, adult; Y83.8 Other surgical procedures as the cause of abnormal reaction of the patient, or of later complication, without mention of misadventure at the time of the procedure
CPT/HCPCS: 87075; 87076; 87116; 87186

== ENCOUNTER 2019-01-31 14:02 | Inpatient (IN) | payer MEDICARE ==
[2019-01-31] MEDS ORDERED: NACL 0.9% 1000 ML 1,000 ML IV ONE (16:24)
[2019-01-31] MEDS ORDERED: ZOFRAN IV ONE (16:24)
[2019-01-31] MEDS ORDERED: MORPHINE IV ONE (16:24)
[2019-01-31] MEDS ORDERED: VANCOMYCIN/NS 1 GM/250 ML 1 GM/250 ML BAG IV ONE (16:25)
--- NOTE | 2019-01-31 16:32 | Emergency Department Report ---
ED General Adult HPI - General Chief complaint: Wound/Laceration Stated complaint: WOUND/LEFT POSTERIOR THIGH PAIN Time Seen by Provider: 01/31/19 16:10 Source: EMS Mode of arrival: Ambulatory Limitations: Physical Limitation - History of Present Illness Initial comments: Patient is 63 years old female with history of COPD, congestive heart failure, diabetes and obesity . Patient is a DO NOT RESUSCITATE. Patient presented to the ER for evaluation of a left posterior thigh wound. Patient had an excision of a large lobulated lipoma in June [address] Luis. Patient is stated that the wound was closed with sutures that were removed about 2 weeks post op. She stated that shortly after should suture removal the [facility] told the wound opened. Patient has been seen by Dr. Berrios several time for wound care. Patient stated that for the last week she noticed that the wound became more painful and starts having discharge. She was seen yesterday at her wound doctor this and there were trying to put a wound VAC on, but because of the pain there were unable. Patient stated that she was told by to come to the ER for PICC line and IV antibiotic and infectious disease consult. Patient stated that she had history of MRSA before in her symptoms is similar. Patient stated that she's been having like a low-grade fever and chills. Patient denied any nausea or vomiting. Severity scale (0 -10): 8 - Related Data Home Medications Medication Instructions Recorded Confirmed Last Taken Loratadine [Claritin] 10 mg PO DAILY 09/05/13 06/16/18 06/19/18 Carboxymethylcell/Glycerin/Pf 1 - 2 drop OU QID 11/04/14 06/16/18 06/19/18 [Refresh Optive Sensitive Drops 0.5/0.9%] Hydrocortisone [Proctozone-HC 2.5% 30 gm RC QDAY PRN 11/04/14 06/16/18 06/19/18 CREAM] Cyclobenzaprine HCl [Flexeril 5 MG 10 mg PO QHS 08/01/15 06/16/18 06/19/18 TAB] Calcium Carbonate [Tums] 200 mg PO Q6H PRN 05/23/16 06/16/18 06/19/18 Docusate Sodium [Colace CAP] 100 mg PO BID 02/25/18 06/16/18 06/19/18 Acetaminophen [Acetaminophen ER 650 mg PO Q8HR PRN 06/16/18 06/16/18 06/19/18 TAB] Ergocalciferol [Vitamin D2] 50,000 unit PO QWEEK 06/16/18 06/20/18 Unknown Linagliptin [Tradjenta] 5 mg PO QDAY 06/16/18 06/16/18 06/19/18 Magnesium Hydroxide [Vivas' 400 mg PO PRN PRN 06/16/18 06/16/18 06/19/18 Milk of Magnesia] Ondansetron [Zofran TAB] 4 mg PO Q8HR PRN 06/16/18 06/16/18 06/19/18 Pantoprazole [Protonix] 40 mg PO QDAY 06/16/18 06/16/18 06/19/18 Polyvinyl Alcohol [Tearfair 1%] 1 - 2 drop OP PRN 06/16/18 06/16/18 06/19/18 Potassium Chloride [Klor-Con M10] 10 meq PO DAILY 06/16/18 06/16/18 06/19/18 Triamcinolone Acetonide [Nasacort 16.9 ml NS DAILY 06/16/18 06/16/18 06/19/18 SPRAY] Previous Rx's Medication Instructions Recorded Last Taken Type Lacosamide [Vimpat] 50 mg PO Q12HR #60 tablet 01/02/16 06/20/18 08:30 Rx ALBUTEROL NEB's [Proventil 0.083% 2.5 mg IH QIDRT nebu 03/01/18 06/19/18 Rx NEBS] Cyanocobalamin [Vitamin B-12] 1,000 mcg PO QDAY tablet 03/01/18 06/19/18 Rx Diltiazem HCl [Diltiazem ER] 120 mg PO DAILY #30 cap.er.deg 03/01/18 06/20/18 08:30 Rx Lispro Insulin [Humalog] 0 unit SUB-Q ACHS units 03/01/18 06/19/18 Rx Montelukast [Singulair] 10 mg PO QPM #30 tablet 03/01/18 06/19/18 Rx PARoxetine [Paxil] 30 mg PO DAILY tablet 03/01/18 06/20/18 08:30 Rx Torsemide [Demadex] 20 mg PO DAILY #30 tablet 03/01/18 06/19/18 Rx predniSONE [Prednisone] 20 mg PO DAILY #30 tab.ds.pk 03/01/18 06/20/18 08:30 Rx Budesonide [Pulmicort Respules] 0.5 mg IH Q12HRT #60 nebu 03/03/18 06/19/18 Rx LORazepam [Ativan] 0.5 mg PO TID #21 tablet 03/03/18 06/19/18 Rx metOLazone [Zaroxolyn] 5 mg PO QDAY #30 tablet 03/03/18 06/19/18 Rx Albuterol Sulfate [Albuterol 0.63% 0.63 mg IH Q4HR PRN #2 ml 06/15/18 06/19/18 Rx NEBS] Albuterol Sulfate [Proair 90 mcg IH Q4HR PRN #2 aer.pow.ba 06/15/18 06/19/18 Rx Respiclick] Allergies Allergy/AdvReac Type Severity Reaction Status Date / Time aspartame Allergy Severe Anaphylaxis Verified 06/16/18 17:41 aspirin Allergy Severe Swelling Verified 06/16/18 17:41 chocolate flavor Allergy Severe Shortness Verified 06/16/18 17:41 of Breath ciprofloxacin [From Cipro] Allergy Severe Shortness Verified 06/16/18 17:41 of Breath diazepam [From Valium] Allergy Severe Shortness Verified 06/16/18 17:41 of Breath levofloxacin [From Levaquin] Allergy Severe Swelling Verified 06/16/18 17:41 Macrolide Antibiotics Allergy Severe Swelling Verified 06/16/18 17:41 midazolam HCl [From Versed] Allergy Severe Shortness Verified 06/16/18 17:41 of Breath monosodium glutamate Allergy Severe Swelling Verified 06/16/18 17:41 oxycodone HCl [From Percocet] Allergy Severe Swelling Verified 06/16/18 17:41 peach [[place]] Allergy Severe Swelling Verified 06/16/18 17:41 peanut Allergy Severe Swelling Verified 06/16/18 17:41 Phenothiazines Allergy Severe Swelling Verified 06/16/18 17:41 propoxyphene napsylate Allergy Severe Swelling Verified 06/16/18 17:41 [From Darvocet-N 100] midazolam Allergy Intermediate Rash Verified 06/16/18 17:41 oxycodone [Oxycodone] Allergy Intermediate Rash Verified 06/16/18 17:41 promethazine Allergy Intermediate Nausea Verified 06/16/18 17:41 Fish Containing Products Allergy Anaphylaxis Verified 06/16/18 17:41 fluticasone propionate Allergy Shortness Verified 06/16/18 17:41 [From Flonase] of Breath povidone-iodine Allergy Rash Verified 06/16/18 17:41 [From Betadine] Salicylates * [Salicylates] Allergy Swelling Verified 06/16/18 17:41 soap [From Betadine] Allergy Rash Verified 06/16/18 17:41 Sulfa (Sulfonamide Allergy Swelling Verified 06/16/18 17:41 Antibiotics) Tetracyclines Allergy Swelling Verified 06/16/18 17:41 tomato [Tomato] Allergy Swelling Verified 06/16/18 17:41 acetaminophen AdvReac Swelling Verified 06/16/18 17:41 [From Darvocet-N 100] codeine AdvReac Nausea Verified 06/16/18 17:41 NSAIDS (Non-Steroidal AdvReac Nausea Verified 06/16/18 17:41 Anti-Inflamma propofol AdvReac Shortness Verified 06/16/18 17:41 of Breath all bread Allergy Swelling Uncoded 06/16/18 17:41 seafood Allergy Anaphylaxis Uncoded 06/16/18 17:41 citrus AdvReac Nausea Uncoded 06/16/18 17:41 dairy AdvReac Nausea Uncoded 06/16/18 17:41 oatmeal AdvReac Nausea Uncoded 06/16/18 17:41 Z-PACK AdvReac Unknown Uncoded 06/20/18 12:03 ED Review of Systems ROS: Stated complaint: WOUND/LEFT POSTERIOR THIGH PAIN Other details as noted in HPI Comment: All other systems reviewed and negative Constitutional: chills, fever Respiratory: shortness of breath. denies: cough, orthopnea Cardiovascular: denies: chest pain, palpitations Gastrointestinal: denies: abdominal pain, nausea, vomiting, diarrhea, constipation, hematemesis, melena, hematochezia Genitourinary: denies: urgency, dysuria Skin: lesions ED Past Medical Hx - Past Medical History Previous Medical History?: Yes Hx Hypertension: Yes (Hx dCHF) Hx Heart Attack/AMI: No Hx Congestive Heart Failure: Yes Hx Diabetes: Yes Hx Deep Vein Thrombosis: No Hx Pulmonary Embolism: Yes Hx GERD: Yes Hx Liver Disease: No Hx Renal Disease: No Hx Arthritis: Yes Hx Seizures: Yes (last 1 yr ago) Hx Psychiatric Treatment: Yes (anxiety) Hx Asthma: Yes Hx COPD: Yes Hx Dementia: No Additional medical history: thoracic spine pain, t-12 burst fracture; PE - Surgical History Hx Pacemaker: No Hx Internal Defibrillator: No Hx Cholecystectomy: Yes Additional Surgical History: hysterectomy, umbilical hernia; hip replacement. IVC Filter in left groin 2013 - Social History Smoking Status: Unknown if ever smoked Substance Use Type: None - Medications Home Medications: Home Medications Medication Instructions Recorded Confirmed Last Taken Type Loratadine [Claritin] 10 mg PO DAILY 09/05/13 06/16/18 06/19/18 History Carboxymethylcell/Glycerin/Pf 1 - 2 drop OU QID 11/04/14 06/16/18 06/19/18 History [Refresh Optive Sensitive Drops 0.5/0.9%] Hydrocortisone [Proctozone-HC 2.5% 30 gm RC QDAY PRN 11/04/14 06/16/18 06/19/18 History CREAM] Cyclobenzaprine HCl [Flexeril 5 MG 10 mg PO QHS 08/01/15 06/16/18 06/19/18 History TAB] Lacosamide [Vimpat] 50 mg PO Q12HR #60 tablet 01/02/16 06/16/18 06/20/18 08:30 Rx Calcium Carbonate [Tums] 200 mg PO Q6H PRN 05/23/16 06/16/18 06/19/18 History Docusate Sodium [Colace CAP] 100 mg PO BID 02/25/18 06/16/18 06/19/18 History ALBUTEROL NEB's [Proventil 0.083% 2.5 mg IH QIDRT nebu 03/01/18 06/16/18 06/19/18 Rx NEBS] Cyanocobalamin [Vitamin B-12] 1,000 mcg PO QDAY tablet 03/01/18 06/16/18 06/19/18 Rx Diltiazem HCl [Diltiazem ER] 120 mg PO DAILY #30 cap.er.deg 03/01/18 06/16/18 06/20/18 08:30 Rx Lispro Insulin [Humalog] 0 unit SUB-Q ACHS units 03/01/18 06/16/18 06/19/18 Rx Montelukast [Singulair] 10 mg PO QPM #30 tablet 03/01/18 06/20/18 06/19/18 Rx PARoxetine [Paxil] 30 mg PO DAILY tablet 03/01/18 06/16/18 06/20/18 08:30 Rx Torsemide [Demadex] 20 mg PO DAILY #30 tablet 03/01/18 06/16/18 06/19/18 Rx predniSONE [Prednisone] 20 mg PO DAILY #30 tab.ds.pk 03/01/18 06/16/18 06/20/18 08:30 Rx Budesonide [Pulmicort Respules] 0.5 mg IH Q12HRT #60 nebu 03/03/18 06/16/18 06/19/18 Rx LORazepam [Ativan] 0.5 mg PO TID #21 tablet 03/03/18 06/16/18 06/19/18 Rx metOLazone [Zaroxolyn] 5 mg PO QDAY #30 tablet 03/03/18 06/16/18 06/19/18 Rx Albuterol Sulfate [Albuterol 0.63% 0.63 mg IH Q4HR PRN #2 ml 06/15/18 06/16/18 06/19/18 Rx NEBS] Albuterol Sulfate [Proair 90 mcg IH Q4HR PRN #2 aer.pow.ba 06/15/18 06/16/18 06/19/18 Rx Respiclick] Acetaminophen [Acetaminophen ER 650 mg PO Q8HR PRN 06/16/18 06/16/18 06/19/18 History TAB] Ergocalciferol [Vitamin D2] 50,000 unit PO QWEEK 06/16/18 06/20/18 Unknown History Linagliptin [Tradjenta] 5 mg PO QDAY 06/16/18 06/16/18 06/19/18 History Magnesium Hydroxide [Vivas' 400 mg PO PRN PRN 06/16/18 06/16/18 06/19/18 History Milk of Magnesia] Ondansetron [Zofran TAB] 4 mg PO Q8HR PRN 06/16/18 06/16/18 06/19/18 History Pantoprazole [Protonix] 40 mg PO QDAY 06/16/18 06/16/18 06/19/18 History Polyvinyl Alcohol [Tearfair 1%] 1 - 2 drop OP PRN 06/16/18 06/16/18 06/19/18 History Potassium Chloride [Klor-Con M10] 10 meq PO DAILY 06/16/18 06/16/18 06/19/18 H istory Triamcinolone Acetonide [Nasacort 16.9 ml NS DAILY 06/16/18 06/16/18 06/19/18 History SPRAY] ED Physical Exam - General Limitations: Physical Limitation General appearance: alert, in no apparent distress - Head Head exam: Present: atraumatic, normocephalic, normal inspection - Eye Eye exam: Present: normal appearance, PERRL - ENT ENT exam: Present: normal exam, normal orophraynx, mucous membranes moist - Neck Neck exam: Present: normal inspection, full ROM. Absent: tenderness, meningismus - Respiratory Respiratory exam: Present: normal lung sounds bilaterally. Absent: respiratory distress, wheezes, rales, rhonchi, accessory muscle use, decreased breath sounds, prolonged expiratory - Cardiovascular Cardiovascular Exam: Present: regular rate, normal rhythm, normal heart sounds - GI/Abdominal GI/Abdominal exam: Present: soft, normal bowel sounds. Absent: distended, tenderness, guarding, rebound, rigid, organomegaly, mass, bruit, pulsatile mass, hernia - Back Exam Back exam: Present: normal inspection - Neurological Exam Neurological exam: Present: alert, oriented X3, CN II-XII intact - Skin Skin exam: Present: warm, other (wound to the left posterior thigh, 3 cm time 2 cm time 0.5 cm in depth with an area of 7.8 cm. There is moderate amount of serous drainage.) ED Course Vital Signs 01/31/19 15:14 Temperature 98 F Pulse Rate 102 H Respiratory 16 Rate Blood Pressure 118/68 O2 Sat by Pulse 98 Oximetry ED Medical Decision Making - Medical Decision Making Patient is 63 years old female with history of COPD, congestive heart failure, diabetes and obesity . Patient is a DO NOT RESUSCITATE. Patient presented to the ER for evaluation of a left posterior thigh wound. Patient had an excision of a large lobulated lipoma in June [address] Luis. Patient is stated that the wound was closed with sutures that were removed about 2 weeks post op. She stated that shortly after should suture removal [facility] told the [facility] opened. Patient has been seen by Dr. Berrios several time for wound care. Patient stated that for the last week she noticed that the wound became more painful and starts having discharge. She was seen yesterday at her wound doctor this and there were trying to put a wound VAC on, but because of the pain there were unable. Patient stated that she was told by to come to the ER for PICC line and IV antibiotic and infectious disease consult. Patient stated that she had history of MRSA before in her symptoms is similar. Patient stated that she's been having like a low-grade fever and chills. Patient denied any nausea or vomiting. Patient received 1 g of vancomycin. Wound culture obtained. I discussed the patient with Dr. Vicente, He stated that he will follow-up with the patient. I discussed the patient is Dr. Patrick who agreed to admit the patient to medical service. Critical care attestation.: If time is entered above; I have spent that time in minutes in the direct care of this critically ill patient, excluding procedure time. ED Disposition Clinical Impression: Wound infection Disposition: OP ADMIT IP TO THIS HOSP Is pt being admited?: Yes Condition: Stable
[2019-01-31] MEDS ORDERED: VANCOMYCIN 2,000 MG in NACL 0.9% 500 ML 500 ML IV ONE (17:00)
[2019-01-31 17:11] LABS: Hemoglobin 14.6 gm/dl (10.1-14.3); Mean Corpuscular HGB Conc 33 % (30-34); Mean Corpuscular Volume 97 fl (79-97); Platelet Count 211 K/mm3 (140-440); Red Blood Count 4.54 M/mm3 (3.65-5.03); Red Cell Distribution Width 15.6 % (13.2-15.2)
[2019-01-31 17:30] LABS: Alanine Aminotransferase 83 units/L (7-56); Albumin 3.5 g/dL (3.9-5); BUN/Creatinine Ratio 21; Blood Urea Nitrogen 19 mg/dL (7-17); Calcium 8.5 mg/dL (8.4-10.2); Hemolysis Index 14
[2019-01-31 21:09] LABS: Basophils % (Manual) 0 % (0.0-1.8); Eosinophils % (Manual) 0 % (0.0-4.3); RBC Morphology Normal; Total Cells Counted 100
[2019-01-31] MEDS: PROVENTIL IH SCH (21:38)
--- NOTE | 2019-02-01 03:06 | Event Note ---
Date: 01/31/19 See dictated H/p in the reports LLE ulcer on Posterior thigh DM COPD' Obesity
[2019-02-01] MEDS ORDERED: ZOFRAN ODT PO PRN (03:07)
[2019-02-01] MEDS ORDERED: NON-FORMULARY (Acetaminophen [Acetaminophen Er Tab] 650 MG) PO PRN (03:07)
[2019-02-01] MEDS ORDERED: PROAIR IH PRN (03:07)
[2019-02-01] MEDS ORDERED: TRIAMCINOLONE ACETONIDE NS PRN (03:07)
[2019-02-01] MEDS ORDERED: ISOPTO TEARS 0.5% OU PRN (03:07)
[2019-02-01] MEDS ORDERED: FLEXERIL PO PRN (03:07)
[2019-02-01] MEDS ORDERED: CROMOLYN SODIUM NS PRN (03:07)
[2019-02-01] MEDS ORDERED: SENOKOT PO PRN (03:07)
[2019-02-01] MEDS ORDERED: ZOFRAN IV PRN (03:14)
[2019-02-01] MEDS ORDERED: DILAUDID IV PRN (03:14)
[2019-02-01] MEDS ORDERED: SODIUM CHLORIDE FLUSH SYRINGE 10 ML IV PRN (03:14)
[2019-02-01] MEDS ORDERED: TYLENOL PO PRN (03:14)
[2019-02-01] MEDS ORDERED: PERCOCET 5/325 PO PRN (03:14)
[2019-02-01] MEDS ORDERED: PROVENTIL IH PRN (03:52)
[2019-02-01] MEDS ORDERED: VANCOMYCIN PHARMACY TO DOSE IV SCH (04:00)
--- NOTE | 2019-02-01 04:17 | History and Physical Report ---
CHIEF COMPLAINT: Persistent wound and infection on the left posterior thigh. HISTORY OF PRESENT ILLNESS: A 63-year-old female, , with multiple medical problems including COPD, CHF, diabetes, obesity, prison resident, DNR, has been having an ulcer on LLE from June 2018. The patient had a large lobulated lipoma which was excised in June 2018. Since then, the patient has been having recurrent infection in the wound. The patient has seen the Surgery Department multiple times for wound care. Over the last 1 week, ulcer on the left posterior thigh has become more painful with discharge. The patient was sent to the Emergency Room for further evaluation and IV antibiotics and wound VAC placement. The patient is being admitted for wound VAC and antibiotics. The patient has ulcer of about 7 cm x 5 cm with a depth of 2 cm, with greenish discharge. PAST MEDICAL HISTORY: Significant for allergic rhinitis, muscle spasms, vitamin D deficiency, type 2 diabetes, gastroesophageal reflux disease, hypertension. CURRENT MEDICATIONS: On the chart. PAST SURGICAL HISTORY: 1. Left thigh lipoma surgery. 2. Hypertension. 3. Congestive heart failure. PAST SURGICAL HISTORY: Cholecystectomy, hysterectomy, umbilical hernia repair, hip replacement, IVC filter. SOCIAL HISTORY: Does not smoke. Lives in a residential facility. FAMILY HISTORY: Hypertension. REVIEW OF SYSTEMS: Significant for left lower extremity posterior thigh large ulcer with greenish drainage, 7 cm x 5 cm x 2 cm. No fever or chills. PHYSICAL EXAMINATION: GENERAL: Young elderly female, obese. VITAL SIGNS: Blood pressure 120/53, temperature 98.0, pulse is 78, respirations are 20. HEENT: Unremarkable. Pupils equal and reactive. NECK: Supple, no lymphadenopathy, no thyromegaly. LUNGS: Clear to auscultation and percussion. Good air entry. CARDIOVASCULAR: S1, S2 heard. No gallop, no murmur, no rub. Apical impulse in left fifth intercostal space and midclavicular line. ABDOMEN: Soft and benign. No hepatosplenomegaly. No guarding, no rigidity. Hernial orifices are normal. EXTREMITIES: Right posterior thigh, large open wound present, 7 cm x 5 cm x 2 cm. Greenish discharge present. Tenderness present. Pulses are well felt. CENTRAL NERVOUS SYSTEM: Alert and oriented x 4, nonfocal exam. SKIN: Normal. LABORATORY DATA: Significant for white count of 10,500, H and H is 14.6 and 44.0, platelet count is 211,000. Electrolytes are normal. BUN and creatinine is 19 and 0.9. AST 60, ALT is 83. Total protein is 5.5. Albumin is 3.5. ASSESSMENT AND PLAN: 1. Left lower extremity cellulitis with ulcer. IV Unasyn and IV vancomycin started. Surgery consult requested by Dr. Berrios/Jules. Wound care requested. 2. Type 2 diabetes, insulin coverage requested. Insulin coverage and Accu-Cheks before meals and at bedtime. 3. Seizure disorder. Continue Vimpat. 4. Vitamin D deficiency. Continue vitamin D. 5. Asthma/chronic obstructive pulmonary disease. Continue albuterol. 6. Hypertension. Continue benazepril and diltiazem 120 daily. 7. Constipation. Continue Dulcolax. 8. Peripheral neuropathy. Continue gabapentin. 9. Generalized anxiety disorder. Continue lorazepam. 10. Gastroesophageal reflux disease. Continue pantoprazole. 11. Deep venous thrombosis prophylaxis, Lovenox 40 mg subcutaneous daily. In summary, the patient has left lower extremity cellulitis and open wound which needs antibiotics and debridement and wound VAC. Also, hypertension and insulin-dependent diabetes. JOB# [id number] MANSI/SEA DW[facility]ER
[2019-02-01] MEDS: DEMADEX PO SCH ×3 (04:21→22:51)
[2019-02-01] MEDS: VANCOMYCIN 1,500 MG in NACL 0.9% 500 ML 500 ML IV SCH ×2 (06:14→18:50)
[2019-02-01] MEDS: UNASYN/NS 3 GM/100 ML 3 GM/100 ML BAG IV SCH ×3 (06:15→17:35)
[2019-02-01] MEDS: MS CONTIN ER PO SCH ×2 (06:17→17:36)
[2019-02-01] MEDS: HumaLOG SUB-Q SCH ×4 (07:30→22:52)
[2019-02-01] MEDS: PROVENTIL IH SCH ×3 (07:37→20:04)
[2019-02-01] MEDS: TUMS PO SCH (10:34)
[2019-02-01] MEDS: CLARITIN PO SCH (10:34)
[2019-02-01] MEDS: VIMPAT PO SCH ×2 (10:38→22:50)
[2019-02-01] MEDS: TRADJENTA PO SCH (10:39)
[2019-02-01] MEDS: PAXIL PO SCH (10:39)
[2019-02-01] MEDS: VITAMIN B-12 PO SCH (10:39)
[2019-02-01] MEDS: PROTONIX PO SCH (10:40)
[2019-02-01] MEDS: THERAGRAN-M Tab PO SCH (10:40)
[2019-02-01] MEDS: NEURONTIN PO SCH ×2 (10:40→22:50)
[2019-02-01] MEDS: COLACE PO SCH (10:41)
[2019-02-01] MEDS: ATIVAN PO SCH ×2 (10:42→22:50)
[2019-02-01] MEDS: K-DUR PO SCH ×2 (10:42→22:50)
[2019-02-01] MEDS: SODIUM CHLORIDE FLUSH SYRINGE 10 ML IV SCH ×2 (10:43→22:50)
[2019-02-01] MEDS: NYSTOP TP SCH ×2 (10:43→22:51)
[2019-02-01] MEDS: ZESTRIL PO SCH (10:49)
[2019-02-01] MEDS: CARDIZEM CD PO SCH (10:49)
--- NOTE | 2019-02-01 10:58 | Consultation ---
History of Present Illness Consult date: 02/01/19 Chief complaint: left thigh wound, pain - History of present illness History of present illness: 63 yo F with multiple medical problems presents to ER with c/o severe burning pain in the area of her left thigh wound. The patient is well known to wound care team as she is being treated in the wound care center for this wound for the last several months. The patient underwent excision of soft tissue mass of left posterior thigh by Dr. Denton in June 2018. At that time and abscess cavity was found and the wound cultured. The wound was closed and sutures removed 2 weeks later. Shortly after this, the wound opened. She was referred to wound care center at that time. Cultures of wound from June grew MRSA. Pt is unsure which antibiotics were used to treat the infection at that time. She has had several debridements in the wound care center. She was seen on Tuesday 01/30 and c/o burning pain around the wound and in the wound bed. Cultures were obtained but there was gross evidence of infection. She was afebrile at that time. It was recommended that she go to ER if she experienced worsening pain, f/c. She was sent to the ER due to increased pain. She states it is burning and radiates down the middle of her leg at times. Past History Past Medical History: COPD, diabetes, other (bronchitis, right shoulder rotator cuff tear) Past Surgical History: Other (multiple left thigh wound debridement, excision of lipoma L posterior thigh) Social history: other (lives at assisted) Family history: no significant family history Medications and Allergies Allergies Allergy/AdvReac Type Severity Reaction Status Date / Time aspartame Allergy Severe Anaphylaxis Verified 06/16/18 17:41 aspirin Allergy Severe Swelling Verified 06/16/18 17:41 chocolate flavor Allergy Severe Shortness Verified 06/16/18 17:41 of Breath ciprofloxacin [From Cipro] Allergy Severe Shortness Verified 06/16/18 17:41 of Breath diazepam [From Valium] Allergy Severe Shortness Verified 06/16/18 17:41 of Breath fish derived Allergy Severe Anaphylaxis Verified 02/01/19 07:40 levofloxacin [From Levaquin] Allergy Severe Swelling Verified 06/16/18 17:41 Macrolide Antibiotics Allergy Severe Swelling Verified 06/16/18 17:41 midazolam HCl [From Versed] Allergy Severe Shortness Verified 06/16/18 17:41 of Breath monosodium glutamate Allergy Severe Swelling Verified 06/16/18 17:41 oxycodone HCl [From Percocet] Allergy Severe Swelling Verified 06/16/18 17:41 peach [Glades] Allergy Severe Swelling Verified 06/16/18 17:41 peanut Allergy Severe Swelling Verified 06/16/18 17:41 Phenothiazines Allergy Severe Swelling Verified 06/16/18 17:41 propoxyphene napsylate Allergy Severe Swelling Verified 06/16/18 17:41 [From Darvocet-N 100] shellfish derived Allergy Severe Anaphylaxis Verified 02/01/19 07:40 midazolam Allergy Intermediate Rash Verified 06/16/18 17:41 oxycodone [Oxycodone] Allergy Intermediate Rash Verified 06/16/18 17:41 promethazine Allergy Intermediate Nausea Verified 06/16/18 17:41 azithromycin [From Zithromax] Allergy Unknown Swelling Verified 02/01/19 07:37 Fish Containing Products Allergy Anaphylaxis Verified 06/16/18 17:41 fluticasone propionate Allergy Shortness Verified 06/16/18 17:41 [From Flonase] of Breath povidone-iodine Allergy Rash Verified 06/16/18 17:41 [From Betadine] Salicylates * [Salicylates] Allergy Swelling Verified 06/16/18 17:41 soap [From Betadine] Allergy Rash Verified 06/16/18 17:41 Sulfa (Sulfonamide Allergy Swelling Verified 06/16/18 17:41 Antibiotics) Tetracyclines Allergy Swelling Verified 06/16/18 17:41 tomato [Tomato] Allergy Swelling Verified 06/16/18 17:41 milk AdvReac Unknown Unknown Verified 02/01/19 07:42 acetaminophen AdvReac Swelling Verified 06/16/18 17:41 [From Darvocet-N 100] codeine AdvReac Nausea Verified 06/16/18 17:41 NSAIDS (Non-Steroidal AdvReac Nausea Verified 06/16/18 17:41 Anti-Inflamma propofol AdvReac Shortness Verified 06/16/18 17:41 of Breath all bread Allergy Swelling Uncoded 06/16/18 17:41 seafood Allergy Anaphylaxis Uncoded 06/16/18 17:41 citrus AdvReac Nausea Uncoded 06/16/18 17:41 dairy AdvReac Nausea Uncoded 06/16/18 17:41 oatmeal AdvReac Nausea Uncoded 06/16/18 17:41 Z-PACK AdvReac Unknown Uncoded 06/20/18 12:03 Home Medications Medication Instructions Recorded Confirmed Last Taken Type Lacosamide [Vimpat] 50 mg PO Q12HR #60 tablet 01/02/16 01/31/19 06/20/18 08:30 Rx Calcium Carbonate [Tums] 200 mg PO Q6H PRN 05/23/16 01/31/19 06/19/18 History Docusate Sodium [Colace CAP] 100 mg PO QDAY 02/25/18 01/31/19 06/19/18 History Cyanocobalamin [Vitamin B-12] 1,000 mcg PO QDAY tablet 03/01/18 01/31/19 06/19/18 Rx Lispro Insulin [Humalog] 0 unit SUB-Q ACHS units 03/01/18 01/31/19 06/19/18 Rx Albuterol Sulfate [Proair 90 mcg IH Q4HR PRN #2 [email or web address] 06/15/18 01/31/19 06/19/18 Rx Respiclick] Acetaminophen [Acetaminophen ER 650 mg PO Q6H PRN 06/16/18 01/31/19 06/19/18 History TAB] Ergocalciferol [Vitamin D2] 50,000 unit PO QWEEK 06/16/18 01/31/19 Unknown History Linagliptin [Tradjenta] 5 mg PO QDAY 06/16/18 01/31/19 06/19/18 History Ondansetron [Zofran TAB] 4 mg PO Q8HR PRN 06/16/18 01/31/19 06/19/18 History Pantoprazole [Protonix] 40 mg PO QAM 06/16/18 01/31/19 06/19/18 History Triamcinolone Acetonide [Nasacort 1 spray NS Q24H PRN 06/16/18 01/31/19 06/19/18 History SPRAY] ALBUTEROL Inhaler (OR & NICU) 2 puff IH QID PRN 01/31/19 01/31/19 Unknown History [Proair] ALBUTEROL NEB's [Proventil 0.083% 2.5 mg IH Q4H 01/31/19 01/31/19 Unknown History NEBS] Albuterol Sulfate [Albuterol 0.63% 0.63 mg IH QID PRN 01/31/19 01/31/19 Unknown History NEBS] Antacid [Alum-Mag Hydrox-Simeth 30 ml PO Q8H PRN 01/31/19 01/31/19 Unknown History [id number] Susp] Benazepril HCl [Lotensin] 5 mg PO QDAY 01/31/19 01/31/19 Unknown History Bisacodyl [Bisac-Evac] 10 mg RC Q24H PRN 01/31/19 01/31/19 Unknown History Calcium Carbonate [Calcium] 2 tab PO QDAY 01/31/19 01/31/19 Unknown History Cromolyn Sodium [Nasalcrom] 1 spray NS Q6H PRN 01/31/19 01/31/19 Unknown History Cyclobenzaprine [Flexeril] 10 mg PO HS PRN 01/31/19 01/31/19 Unknown History Fexofenadine HCl [Minal Allergy] 180 mg PO QDAY 01/31/19 01/31/19 Unknown History Gabapentin [Neurontin] 100 mg PO BID 01/31/19 01/31/19 Unknown History Hydrocortisone [Procto-Med Hc] 1 applicatio RC Q12H PRN 01/31/19 01/31/19 Unknown History LORazepam [Ativan] 0.5 mg PO BID 01/31/19 01/31/19 Unknown History Magnesium Hydroxide [Milk of 30 ml PO Q12H PRN 01/31/19 01/31/19 Unknown History Magnesia] Montelukast [Singulair] 10 mg PO DAILY 01/31/19 01/31/19 Unknown History Morphine Sulfate [Morphine Sulfate 15 mg PO Q12H 01/31/19 01/31/19 Unknown History ER] Multivitamin Tab W-MINERAL 1 each PO QD 01/31/19 01/31/19 Unknown History [Multiple Vitamin/Mineral (Theragran M)] Nystatin [Nystop Powder] 1 applicatio TP BID 01/31/19 01/31/19 Unknown History Paroxetine HCl [Paxil] 30 mg PO QDAY 01/31/19 01/31/19 Unknown History Polyvinyl Alcohol [Liquitears] 1 drop OU Q8H PRN 01/31/19 01/31/19 Unknown History Potassium Chloride [K-Dur] 20 meq PO BID 01/31/19 01/31/19 Unknown History Sennosides [Senna] 8.6 mg PO Q12H PRN 01/31/19 01/31/19 Unknown History Torsemide [Demadex] 40 mg PO BID 01/31/19 01/31/19 Unknown History dilTIAZem HCl [Diltiazem HCl] 120 mg PO QAM 01/31/19 01/31/19 Unknown History guaiFENesin ER [Mucinex ER] 600 mg PO Q12H 01/31/19 01/31/19 Unknown History l Gasseri/B Bifidum/B Longum [Ra 1 each PO DAILY 01/31/19 01/31/19 Unknown History Probiotic Colon Care Cap] metroNIDAZOLE 0.75%(NF) [Metrogel 1 applicatio TP HS 01/31/19 01/31/19 Unknown History 0.75% TOPICAL] predniSONE [Deltasone] 20 mg PO QDAY 01/31/19 01/31/19 Unknown History Active Meds: Active Medications Acetaminophen (Tylenol) 650 mg PO Q4H PRN PRN Reason: Pain MILD(1-3)/Fever >100.5/[place] Albuterol (Proventil) 2.5 mg IH QIDRT [facility] Last Admin: 02/01/19 07:37 Dose: 2.5 mg Documented by: Albuterol (Proventil) 2.5 mg IH Q4HRT PRN PRN Reason: Shortness Of Breath Artificial Tears (Isopto Tears 0.5%) 1 drops OU Q8H PRN PRN Reason: Dry Eye(s) Calcium Carbonate/Glycine (Tums) 1,000 mg PO QDAY [facility] Last Admin: 02/01/19 10:34 Dose: 1,000 mg Documented by: Cyanocobalamin (Vitamin B-12) 1,000 mcg PO QDAY [facility] Last Admin: 02/01/19 10:39 Dose: 1,000 mcg Documented by: Cyclobenzaprine HCl (Flexeril) 10 mg PO HS PRN PRN Reason: Muscle Spasm Diltiazem HCl (Cardizem Cd) 120 mg PO QAM [facility] Last Admin: 02/01/19 10:49 Dose: Not Given Documented by: Docusate Sodium (Colace) 100 mg PO QDAY [facility] Last Admin: 02/01/19 10:41 Dose: 100 mg Documented by: Enoxaparin Sodium (Lovenox) 40 mg SUB-Q QDAY@2200 AMY Gabapentin (Neurontin) 100 mg PO BID [facility] Last Admin: 02/01/19 10:40 Dose: 100 mg Documented by: Hydromorphone HCl (Dilaudid) 0.5 mg IV Q3H PRN PRN Reason: Pain , Severe (7-10) Ampicillin Sodium/Sulbactam Sodium (Unasyn/Ns 3 Gm/100 Ml) 3 gm in 100 mls @ 100 mls/hr IV Q6HR [facility]; Protocol Last Admin: 02/01/19 06:15 Dose: 100 mls/hr Documented by: Vancomycin HCl 1,500 mg/ (Sodium Chloride) 530 mls @ 333.333 mls/hr IV Q12H [facility] Last Admin: 02/01/19 06:14 Dose: 333.333 mls/hr Documented by: Insulin Human Lispro (Humalog) 0 unit SUB-Q ACHS [facility]; Protocol Last Admin: 02/01/19 07:30 Dose: Not Given Documented by: Lacosamide (Vimpat) 50 mg PO Q12HR [facility] Last Admin: 02/01/19 10:38 Dose: 50 mg Documented by: Linagliptin (Tradjenta) 5 mg PO QDAY [facility] Last Admin: 02/01/19 10:39 Dose: 5 mg Documented by: Lisinopril (Zestril) 5 mg PO QDAY [facility] Last Admin: 02/01/19 10:49 Dose: Not Given Documented by: Loratadine (Claritin) 10 mg PO DAILY [facility] Last Admin: 02/01/19 10:34 Dose: 10 mg Documented by: Lorazepam (Ativan) 0.5 mg PO BID [facility] Last Admin: 02/01/19 10:42 Dose: 0.5 mg Documented by: Miscellaneous Medication (Cromolyn Sodium [Nasalcrom]) 1 spray NS Q6H PRN PRN Reason: Nasal Congestion Miscellaneous Medication (Triamcinolone Acetonide [Nasacort [place]]) 1 spray NS Q24H PRN PRN Reason: Allergy Symptoms Montelukast Sodium (Singulair) 10 mg PO QPM [facility] Morphine Sulfate (Ms Contin Er) 15 mg PO Q12H [facility] Last Admin: 02/01/19 06:17 Dose: 15 mg Documented by: Multivitamins/Minerals (Theragran-M Tab) 1 each PO QDAY [facility] Last Admin: 02/01/19 10:40 Dose: 1 each Documented by: Nystatin (Nystop) 1 applic TP BID [facility] Last Admin: 02/01/19 10:43 Dose: 1 applic Documented by: Ondansetron HCl (Zofran Odt) 4 mg PO Q8H PRN PRN Reason: Nausea Ondansetron HCl (Zofran) 4 mg IV Q8H PRN PRN Reason: Nausea And Vomiting Pantoprazole Sodium (Protonix) 40 mg PO QAM [facility] Last Admin: 02/01/19 10:40 Dose: 40 mg Documented by: Paroxetine HCl (Paxil) 30 mg PO QDAY [facility] Last Admin: 02/01/19 10:39 Dose: 30 mg Documented by: Potassium Chloride (K-Dur) 20 meq PO BID [facility] Last Admin: 02/01/19 10:42 Dose: 20 meq Documented by: Senna (Senokot) 8.6 mg PO Q12H PRN PRN Reason: Constipation Sodium Chloride (Sodium Chloride Flush Syringe 10 Ml) 10 ml IV BID [facility] Last Admin: 02/01/19 10:43 Dose: 10 ml Documented by: Sodium Chloride (Sodium Chloride Flush Syringe 10 Ml) 10 ml IV PRN PRN PRN Reason: LINE FLUSH Torsemide (Demadex) 40 mg PO BID [facility] Last Admin: 02/01/19 10:36 Dose: Not Given Documented by: Review of Systems All systems: negative (10 pt ROS performed and negative except for that listed in HPI) Exam Vital Signs Temp Pulse Resp BP Pulse Ox 98 F 102 H 16 118/68 98 01/31/19 15:14 01/31/19 15:14 01/31/19 15:14 01/31/19 15:14 01/31/19 15:14 Narrative exam: Gen; AAOx3. NAD ENT: No scleral icterus or conjunctival pallor CV: s1, S2+ Resp: even and unlabored Ext: left posterior thigh wound - dressing and packing material removed. Wound bed is clean without exudate, drainage, or odor. Periwound tissue is indurated but no fluctuance. Induration improved since exam on 01/30. Focal TTP of skin immediately surrounding wound. No crepitus. Results - Labs 01/31/19 16:56 01/31/19 16:56 Abnormal lab results 01/31/19 01/31/19 02/01/19 Range/Units 16:56 16:56 04:47 Hgb 14.6 H (10.1-14.3) gm/dl Hct 44.0 H (30.3-42.9) % RDW 15.6 H (13.2-15.2) % Seg Neuts % (Manual) 91.0 H (40.0-70.0) % Lymphocytes % (Manual) 5.0 L (13.4-35.0) % Seg Neutrophils # Man 9.6 H (1.8-7.7) K/mm3 Lymphocytes # (Manual) 0.5 L (1.2-5.4) K/mm3 BUN 19 H (7-17) mg/dL Glucose 267 H (65-100) mg/dL POC Glucose (70-105) Hemoglobin A1c 8.2 H (4-6) % AST 60 H (5-40) units/L ALT 83 H (7-56) units/L Total Protein 5.5 L (6.3-8.2) g/dL Albumin 3.5 L (3.9-5) g/dL 02/01/19 Range/Units 07:42 Hgb (10.1-14.3) gm/dl Hct (30.3-42.9) % RDW (13.2-15.2) % Seg Neuts % (Manual) (40.0-70.0) % Lymphocytes % (Manual) (13.4-35.0) % Seg Neutrophils # Man (1.8-7.7) K/mm3 Lymphocytes # (Manual) (1.2-5.4) K/mm3 BUN (7-17) mg/dL Glucose (65-100) mg/dL POC Glucose 110 H (70-105) Hemoglobin A1c (4-6) % AST (5-40) units/L ALT (7-56) units/L Total Protein (6.3-8.2) g/dL Albumin (3.9-5) g/dL Diabetes panel 01/31/19 02/01/19 Range/Units 16:56 04:47 Sodium 142 (137-145) mmol/L Potassium 4.2 (3.6-5.0) mmol/L Chloride 99.0 (98-107) mmol/L Carbon Dioxide 27 (22-30) mmol/L BUN 19 H (7-17) mg/dL Creatinine 0.9 (0.7-1.2) mg/dL Glucose 267 H (65-100) mg/dL Hemoglobin A1c 8.2 H (4-6) % Calcium 8.5 (8.4-10.2) mg/dL AST 60 H (5-40) units/L ALT 83 H (7-56) units/L Alkaline Phosphatase 57 (35-129) units/L Total Protein 5.5 L (6.3-8.2) g/dL Albumin 3.5 L (3.9-5) g/dL Calcium panel 01/31/19 Range/Units 16:56 Calcium 8.5 (8.4-10.2) mg/dL Albumin 3.5 L (3.9-5) g/dL Pituitary panel 01/31/19 Range/Units 16:56 Sodium 142 (137-145) mmol/L Potassium 4.2 (3.6-5.0) mmol/L Chloride 99.0 (98-107) mmol/L Carbon Dioxide 27 (22-30) mmol/L BUN 19 H (7-17) mg/dL Creatinine 0.9 (0.7-1.2) mg/dL Glucose 267 H (65-100) mg/dL Calcium 8.5 (8.4-10.2) mg/dL Adrenal panel 01/31/19 Range/Units 16:56 Sodium 142 (137-145) mmol/L Potassium 4.2 (3.6-5.0) mmol/L Chloride 99.0 (98-107) mmol/L Carbon Dioxide 27 (22-30) mmol/L BUN 19 H (7-17) mg/dL Creatinine 0.9 (0.7-1.2) mg/dL Glucose 267 H (65-100) mg/dL Calcium 8.5 (8.4-10.2) mg/dL Total Bilirubin 0.60 (0.1-1.2) mg/dL AST 60 H (5-40) units/L ALT 83 H (7-56) units/L Alkaline Phosphatase 57 (35-129) units/L Total Protein 5.5 L (6.3-8.2) g/dL Albumin 3.5 L (3.9-5) g/dL Assessment and Plan 63 yo F with open left posterior thigh wound Hx of MRSA on cultures in June 2018 s/p multiple debridements in wound care center Plan: Cultures from 01/30 performed at wound care center show Staph aureus, pending final results. Patient without fever and normal WBC. No redness or drainage from wound, wound bed is clean. 1. Patient c/o burning at the site of the wound, disproportionate pain compared to exam. Very low suspicion for necrotizing infection but will get CT scan LLE for completion of w/u 2. await final wound cultures 3. continue abx for now 4. pack wound with alginate and cover with coversite dressing - every other day 5. no plans for surgical debridement at this time Thank you, please call with questions.
--- NOTE | 2019-02-01 13:33 | Progress Note ---
Assessment and Plan Left posterior thigh non-healing infected surgical wound infected: - CT leg showed there is a skin defect in the posterior left thigh. No underlying fluid collection is present. Moderate to large left knee joint effusion. - no surgical debridgement needed - cont iv abx, will follow cx Other chronic issue DM type 2 COPD', stable Morbid Obesity GINNA - cont consistent carb diet, SSI/insulin - resume home meds - DVT Px, supportive care Brief history: 63 yo F with history of COPD, Chronic Respiratory Failure, OA, DM, CHF, HTN, PE, Seizure Disorder and left posterior thigh multi-loculated mass s/p removal on 06/20/2018; admitted on 01/30/2019 due to worsening burning pain and drainage f rom non-healing surgical wound: CT LE: There is a skin defect in the posterior left thigh. No underlying fluid collection is present. Moderate to large left knee joint effusion. Subjective Date of service: 02/01/19 Interval history: Patient seen and examined No acute event o/n, left thigh pain improved tolerating diet Objective - Constitutional Vitals: Vital Signs - 12hr 02/01/19 02/01/19 02/01/19 04:26 07:38 07:50 Temperature 97.6 F Pulse Rate 84 Pulse Rate [ 86 85 Anterior Bilateral Throughout] Respiratory 20 Rate Respiratory 18 18 Rate [Anterior Bilateral Throughout] Blood Pressure 118/47 O2 Sat by Pulse 91 94 Oximetry 02/01/19 02/01/19 02/01/19 10:49 11:28 11:57 Temperature 98.1 F Pulse Rate 75 90 Pulse Rate [ Anterior Bilateral Throughout] Respiratory 20 Rate Respiratory Rate [Anterior Bilateral Throughout] Blood Pressure 98/40 117/57 O2 Sat by Pulse 98 93 Oximetry General appearance: Present: no acute distress, obese - EENT Eyes: PERRL, EOM intact ENT: hearing intact, clear oral mucosa Ears: bilateral: normal - Neck Neck: supple, normal ROM - Respiratory Respiratory effort: normal Respiratory: bilateral: CTA - Cardiovascular Rhythm: regular Heart Sounds: Present: S1 & S2. Absent: gallop, rub Extremities: pulses intact, No edema, normal color, Full ROM Extremity abnormal: other (wound dressing on the posterior surface of left thigh) - Gastrointestinal General gastrointestinal: Present: soft, non-tender, non-distended, normal bowel sounds - Integumentary Integumentary: clear, warm, dry - Musculoskeletal Musculoskeletal: 1, strength equal bilaterally - Neurologic Neurologic: moves all extremities - Psychiatric Psychiatric: memory intact, appropriate mood/affect, intact judgment & insight - Labs CBC & Chem 7: 02/02/19 05:30 02/02/19 05:30 Labs: Abnormal lab results 01/31/19 01/31/19 02/01/19 Range/Units 16:56 16:56 04:47 Hgb 14.6 H (10.1-14.3) gm/dl Hct 44.0 H (30.3-42.9) % RDW 15.6 H (13.2-15.2) % Seg Neuts % (Manual) 91.0 H (40.0-70.0) % Lymphocytes % (Manual) 5.0 L (13.4-35.0) % Seg Neutrophils # Man 9.6 H (1.8-7.7) K/mm3 Lymphocytes # (Manual) 0.5 L (1.2-5.4) K/mm3 BUN 19 H (7-17) mg/dL Glucose 267 H (65-100) mg/dL POC Glucose (70-105) Hemoglobin A1c 8.2 H (4-6) % AST 60 H (5-40) units/L ALT 83 H (7-56) units/L Total Protein 5.5 L (6.3-8.2) g/dL Albumin 3.5 L (3.9-5) g/dL 02/01/19 Range/Units 07:42 Hgb (10.1-14.3) gm/dl Hct (30.3-42.9) % RDW (13.2-15.2) % Seg Neuts % (Manual) (40.0-70.0) % Lymphocytes % (Manual) (13.4-35.0) % Seg Neutrophils # Man (1.8-7.7) K/mm3 Lymphocytes # (Manual) (1.2-5.4) K/mm3 BUN (7-17) mg/dL Glucose (65-100) mg/dL POC Glucose 110 H (70-105) Hemoglobin A1c (4-6) % AST (5-40) units/L ALT (7-56) units/L Total Protein (6.3-8.2) g/dL Albumin (3.9-5) g/dL
[2019-02-01] MEDS ORDERED: FLONASE NS PRN (16:03)
[2019-02-01] MEDS: DELTASONE PO SCH (16:50)
[2019-02-01] MEDS: SINGULAIR PO SCH (17:36)
--- NOTE | 2019-02-01 18:34 | Cat Scan Report ---
PROCEDURE: CT LOWER EXTREMITY LT WO CON TECHNIQUE: Computerized axial tomography of the left was performed without contrast. CT DOSE LENGTH PRODUCT: 860.9 mGycm HISTORY: open left posterior thigh wound COMPARISONS: None . FINDINGS: There is a skin defect in the posterior left thigh, located 24 cm distal to the superior acetabular c ortex. No underlying fluid collection is seen. No obvious underlying muscle edema is seen. There is n o cortical erosion. No fracture. 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 A moderate to large sized left knee joint effusion is noted. IMPRESSION: There is a skin defect in the posterior left thigh. No underlying fluid collection is present. Moderate to large left knee joint effusion. This document is electronically signed by Ahsli Wilson MD., February 01 2019 06:32:08 PM ET
[2019-02-01] MEDS: LOVENOX SUB-Q SCH (22:50)
[2019-02-02] MEDS: UNASYN/NS 3 GM/100 ML 3 GM/100 ML BAG IV SCH ×3 (05:03→12:38)
[2019-02-02 05:53] LABS: Hematocrit 39.1 % (30.3-42.9); Hemoglobin 13.4 gm/dl (10.1-14.3); Mean Corpuscular HGB Conc 34 % (30-34); Mean Corpuscular Volume 95 fl (79-97); Platelet Count 200 K/mm3 (140-440); Red Blood Count 4.11 M/mm3 (3.65-5.03)
[2019-02-02 06:14] LABS: Alanine Aminotransferase 77 units/L (7-56); Albumin 3.4 g/dL (3.9-5); BUN/Creatinine Ratio 19; Blood Urea Nitrogen 13 mg/dL (7-17); Calcium 7.9 mg/dL (8.4-10.2); Hemolysis Index 14
[2019-02-02] MEDS: MS CONTIN ER PO SCH ×2 (07:03→18:20)
[2019-02-02] MEDS: VANCOMYCIN 1,500 MG in NACL 0.9% 500 ML 500 ML IV SCH ×2 (07:04→18:20)
[2019-02-02] MEDS: HumaLOG SUB-Q SCH ×4 (07:30→22:56)
[2019-02-02 08:34] LABS: Band Neutrophils # (Manual) 0.2 K/mm3; Total Cells Counted 100
[2019-02-02 08:35] LABS: Anisocytosis 1+; Basophils % (Manual) 0 % (0.0-1.8); Eosinophils % (Manual) 0 % (0.0-4.3); Platelet Estimate Consistent w Auto; Stomatocytes Few
[2019-02-02] MEDS: PROVENTIL IH SCH ×3 (09:15→20:53)
--- NOTE | 2019-02-02 10:51 | Progress Note ---
Assessment and Plan 63 yo F with open left posterior thigh wound Hx of MRSA on cultures in June 2018 s/p multiple debridements in wound care center Plan: Cultures from 01/30 performed at wound care center show MRSA Patient without fever and normal WBC. No redness or drainage from wound, wound bed is clean. 1. Ct scan LLE negative for deep infection 2. ID consult for outpatient abx recommendations. Pt with multiple allergies. 3. continue current abx for now 4. pack wound with alginate and cover with coversite dressing - every other day No plans for surgical debridement at this time - may be discharge once antibiotics set up for discharge. She will resume follow up in wound care center. Will s/o. Thank you, please call with questions. Subjective Date of service: 02/02/19 Narrative: Pt seen and examined. No acute complaints. Feels better today. NO f/c Objective Vital Signs - 12hr 02/02/19 02/02/19 06:21 07:03 Temperature 98.3 F Pulse Rate 79 Respiratory 20 24 Rate Blood Pressure 119/51 O2 Sat by Pulse 95 Oximetry - General physical appearance Narrative Exam: Gen; AAOx3. NAD CV: s1, S2+ Resp: even and unlabored Ext; L posterior thigh wound clean, no drainage, no odor, clean base. Minimal surrounding induration. - Labs 02/02/19 05:30 02/02/19 05:30 Diabetes panel 02/02/19 Range/Units 05:30 Sodium 141 (137-145) mmol/L Potassium 3.8 (3.6-5.0) mmol/L Chloride 99.1 (98-107) mmol/L Carbon Dioxide 29 (22-30) mmol/L BUN 13 (7-17) mg/dL Creatinine 0.7 (0.7-1.2) mg/dL Glucose 217 H (65-100) mg/dL Calcium 7.9 L (8.4-10.2) mg/dL AST 38 (5-40) units/L ALT 77 H (7-56) units/L Alkaline Phosphatase 53 (35-129) units/L Total Protein 5.2 L (6.3-8.2) g/dL Albumin 3.4 L (3.9-5) g/dL Calcium panel 02/02/19 Range/Units 05:30 Calcium 7.9 L (8.4-10.2) mg/dL Albumin 3.4 L (3.9-5) g/dL Pituitary panel 02/02/19 Range/Units 05:30 Sodium 141 (137-145) mmol/L Potassium 3.8 (3.6-5.0) mmol/L Chloride 99.1 (98-107) mmol/L Carbon Dioxide 29 (22-30) mmol/L BUN 13 (7-17) mg/dL Creatinine 0.7 (0.7-1.2) mg/dL Glucose 217 H (65-100) mg/dL Calcium 7.9 L (8.4-10.2) mg/dL Adrenal panel 02/02/19 Range/Units 05:30 Sodium 141 (137-145) mmol/L Potassium 3.8 (3.6-5.0) mmol/L Chloride 99.1 (98-107) mmol/L Carbon Dioxide 29 (22-30) mmol/L BUN 13 (7-17) mg/dL Creatinine 0.7 (0.7-1.2) mg/dL Glucose 217 H (65-100) mg/dL Calcium 7.9 L (8.4-10.2) mg/dL Total Bilirubin 0.30 (0.1-1.2) mg/dL AST 38 (5-40) units/L ALT 77 H (7-56) units/L Alkaline Phosphatase 53 (35-129) units/L Total Protein 5.2 L (6.3-8.2) g/dL Albumin 3.4 L (3.9-5) g/dL
[2019-02-02] MEDS ORDERED: DULCOLAX PR PRN (11:02)
[2019-02-02] MEDS ORDERED: NON-FORMULARY (Albuterol Sulfate [Albuterol 0.63% Nebs] 0.63 MG) IH PRN (11:02)
[2019-02-02] MEDS: VITAMIN B-12 PO SCH (11:08)
[2019-02-02] MEDS: TUMS PO SCH (11:08)
[2019-02-02] MEDS: DEMADEX PO SCH ×2 (11:08→21:06)
[2019-02-02] MEDS: THERAGRAN-M Tab PO SCH (11:10)
[2019-02-02] MEDS: COLACE PO SCH (11:11)
[2019-02-02] MEDS: NEURONTIN PO SCH ×2 (11:11→21:07)
[2019-02-02] MEDS: ATIVAN PO SCH ×2 (11:11→21:08)
[2019-02-02] MEDS: ZESTRIL PO SCH (11:12)
[2019-02-02] MEDS: VIMPAT PO SCH ×2 (11:13→21:07)
[2019-02-02] MEDS: CLARITIN PO SCH (11:13)
[2019-02-02] MEDS: DELTASONE PO SCH (11:13)
[2019-02-02] MEDS: PROTONIX PO SCH (11:14)
[2019-02-02] MEDS: K-DUR PO SCH ×2 (11:14→21:07)
[2019-02-02] MEDS: PAXIL PO SCH (11:15)
[2019-02-02] MEDS: CARDIZEM CD PO SCH (11:16)
[2019-02-02] MEDS: SODIUM CHLORIDE FLUSH SYRINGE 10 ML IV SCH (11:17)
[2019-02-02] MEDS: TRADJENTA PO SCH (11:17)
[2019-02-02] MEDS: NYSTOP TP SCH (11:18)
[2019-02-02] MEDS: MUCINEX ER PO SCH (12:38)
--- NOTE | 2019-02-02 13:55 | Progress Note ---
Assessment and Plan Left posterior thigh non-healing infected surgical wound infected: - CT leg showed there is a skin defect in the posterior left thigh. No underlying fluid collection is present. Moderate to large left knee joint effusion. - no surgical debridgement needed - cont iv abx, wound cx growing MRSA, will cont vanco, consult ID Other chronic issue DM type 2 COPD', stable Morbid Obesity GINNA - cont consistent carb diet, SSI/insulin - resume home meds - DVT Px, supportive care Brief history: 63 yo F with history of COPD, Chronic Respiratory Failure, OA, DM, CHF, HTN, PE, Seizure Disorder and left posterior thigh multi-loculated mass s/p removal on 06/20/2018; admitted on 01/30/2019 due to worsening burning pain and drainage from non-healing surgical wound: CT LE: There is a skin defect in the posterior left thigh. No underlying fluid collection is present. Moderate to large left knee joint effusion. Subjective Date of service: 02/02/19 Interval history: Patient seen and examined No acute event o/n, left thigh pain improved tolerating diet Wound cx growing MRSA Objective - Constitutional Vitals: Vital Signs - 12hr 02/02/19 02/02/19 02/02/19 06:21 07:03 09:15 Temperature 98.3 F Pulse Rate 79 Pulse Rate [ 87 Anterior Bilateral Throughout] Respiratory 20 24 Rate Respiratory 20 Rate [Anterior Bilateral Throughout] Blood Pressure 119/51 O2 Sat by Pulse 95 Oximetry 02/02/19 02/02/19 02/02/19 10:00 11:12 13:04 Temperature Pulse Rate 96 H Pulse Rate [ 90 Anterior Bilateral Throughout] Respiratory Rate Respiratory 20 Rate [Anterior Bilateral Throughout] Blood Pressure 136/79 O2 Sat by Pulse 97 Oximetry - Labs CBC & Chem 7: 02/02/19 05:30 02/02/19 05:30 Labs: Abnormal lab results 02/01/19 02/01/19 02/02/19 Range/Units 16:26 21:41 05:30 MCH 33 H (28-32) pg RDW 16.0 H (13.2-15.2) % Seg Neuts % (Manual) 86.0 H (40.0-70.0) % Lymphocytes % (Manual) 6.0 L (13.4-35.0) % Lymphocytes # (Manual) 0.5 L (1.2-5.4) K/mm3 Glucose (65-100) mg/dL POC Glucose 150 H 301 H (70-105) Calcium (8.4-10.2) mg/dL ALT (7-56) units/L Total Protein (6.3-8.2) g/dL Albumin (3.9-5) g/dL 02/02/19 02/02/19 02/02/19 Range/Units 05:30 07:58 12:22 MCH (28-32) pg RDW (13.2-15.2) % Seg Neuts % (Manual) (40.0-70.0) % Lymphocytes % (Manual) (13.4-35.0) % Lymphocytes # (Manual) (1.2-5.4) K/mm3 Glucose 217 H (65-100) mg/dL POC Glucose 145 H 167 H (70-105) Calcium 7.9 L (8.4-10.2) mg/dL ALT 77 H (7-56) units/L Total Protein 5.2 L (6.3-8.2) g/dL Albumin 3.4 L (3.9-5) g/dL
--- NOTE | 2019-02-02 15:46 | Consultation ---
History of Present Illness - Reason for Consult Consult date: 02/02/19 MRSA left thigh/multiple thang allergies Requesting physician: BRITANY HARTMAN - History of Present Illness 63 y/o female with history of COPD, Chronic Respiratory Failure, OA, DM, CHF, HTN, PE, Seizure Disorder and left posterior thigh multi-loculated mass s/p removal on 06/20/2018 (path showed fibroadipose tissue with marked acute and chronic inflammation, granulomas, granulation tissue, microcalcification with negative GMS and AFB and positive wound cultures for MRSA); admitted on 01/30 due to worsening burning pain and drainage from non-healing surgical wound. Her left posterior thigh surgical wound dehisced several months ago and she has been seeing [facility]ound Clinic. Wound culture at [facility]ound Clinic on 01/30/2019 grew MRSA. She has multiple drug allergies. In the ED, temp 98, HR 102, R 16, O2 sat 98%, BP 118/68. WBC 10.5, Hg 14.6, Plat 211. Creat 0.9. ALT 83, AST 60. Blood culture 01/31/2019 no growth today. Wound culture 01/31/[address] leg showed there is a skin defect in the posterior left thigh. No underlying fluid collection is present. Moderate to large left knee joint effusion. Review of Systems: General: no fever, chills, nightsweats, unintentional weight change, or change in appetite Cutaneous: no rash, pruritus Head: no headaches or injury Eyes: no changes in vision, eye pain, double vision Ears: no ear pain, ear discharge, ringing or hearing loss Nose: no nose bleeding, stuffiness Mouth & throat: no bleeding gums, no horseness, no dental problems, or swollen glands Neck: no pain, node enlargement/lumps, tyroid enlargement or tenderness Respiratory: no cough, wheezing, sputum, hemoptysis, pleuritic chest pain Cardiovascular: no chest pain, leg edema, cyanosis, CAMILO, orthopnea Musculoskeletal: left leg wound infection Gastrointestinal: no nausea, vomiting, hematemesis, diarrhea, constipation, melena, bright red blood in stools, fecal incontinence, jaundice Genitourinary/Reproductive: no frequent urination, dysuria, hematuria, incontinence Neurogical: no seizures, no headaches, no weakness, no paresthesias, no loss of speech or vision; no memory loss, no vertigo, no tremors, no numbness Psychiatric: stable mood; no excessive anxiety, sadness or moodiness Past History Past Medical History: COPD, diabetes, other (bronchitis, right shoulder rotator cuff tear) Past Surgical History: Other (multiple left thigh wound debridement, excision of lipoma L posterior thigh) Social history: other ([facility]) Family history: no significant family history Medications and Allergies Allergies Allergy/AdvReac Type Severity Reaction Status Date / Time aspartame Allergy Severe Anaphylaxis Verified 06/16/18 17:41 aspirin Allergy Severe Swelling Verified 06/16/18 17:41 chocolate flavor Allergy Severe Shortness Verified 06/16/18 17:41 of Breath ciprofloxacin [From Cipro] Allergy Severe Shortness Verified 06/16/18 17:41 of Breath diazepam [From Valium] Allergy Severe Shortness Verified 06/16/18 17:41 of Breath fish derived Allergy Severe Anaphylaxis Verified 02/01/19 07:40 levofloxacin [From Levaquin] Allergy Severe Swelling Verified 06/16/18 17:41 Macrolide Antibiotics Allergy Severe Swelling Verified 06/16/18 17:41 midazolam HCl [From Versed] Allergy Severe Shortness Verified 06/16/18 17:41 of Breath monosodium glutamate Allergy Severe Swelling Verified 06/16/18 17:41 oxycodone HCl [From Percocet] Allergy Severe Swelling Verified 06/16/18 17:41 peach [Creek] Allergy Severe Swelling Verified 06/16/18 17:41 peanut Allergy Severe Swelling Verified 06/16/18 17:41 Phenothiazines Allergy Severe Swelling Verified 06/16/18 17:41 propoxyphene napsylate Allergy Severe Swelling Verified 06/16/18 17:41 [From Darvocet-N 100] shellfish derived Allergy Severe Anaphylaxis Verified 02/01/19 07:40 midazolam Allergy Intermediate Rash Verified 06/16/18 17:41 oxycodone [Oxycodone] Allergy Intermediate Rash Verified 06/16/18 17:41 promethazine Allergy Intermediate Nausea Verified 06/16/18 17:41 azithromycin [From Zithromax] Allergy Unknown Swelling Verified 02/01/19 07:37 Fish Containing Products Allergy Anaphylaxis Verified 06/16/18 17:41 fluticasone propionate Allergy Shortness Verified 06/16/18 17:41 [From Flonase] of Breath povidone-iodine Allergy Rash Verified 06/16/18 17:41 [From Betadine] Salicylates * [Salicylates] Allergy Swelling Verified 06/16/18 17:41 soap [From Betadine] Allergy Rash Verified 06/16/18 17:41 Sulfa (Sulfonamide Allergy Swelling Verified 06/16/18 17:41 Antibiotics) Tetracyclines Allergy Swelling Verified 06/16/18 17:41 tomato [Tomato] Allergy Swelling Verified 06/16/18 17:41 milk AdvReac Unknown Unknown Verified 02/01/19 07:42 acetaminophen AdvReac Swelling Verified 06/16/18 17:41 [From Darvocet-N 100] codeine AdvReac Nausea Verified 06/16/18 17:41 NSAIDS (Non-Steroidal AdvReac Nausea Verified 06/16/18 17:41 Anti-Inflamma propofol AdvReac Shortness Verified 06/16/18 17:41 of Breath all bread Allergy Swelling Uncoded 06/16/18 17:41 seafood Allergy Anaphylaxis Uncoded 06/16/18 17:41 citrus AdvReac Nausea Uncoded 06/16/18 17:41 dairy AdvReac Nausea Uncoded 06/16/18 17:41 oatmeal AdvReac Nausea Uncoded 06/16/18 17:41 Z-PACK AdvReac Unknown Uncoded 06/20/18 12:03 Home Medications Medication Instructions Recorded Confirmed Last Taken Type Lacosamide [Vimpat] 50 mg PO Q12HR #60 tablet 01/02/16 01/31/19 06/20/18 08:30 Rx Calcium Carbonate [Tums] 200 mg PO Q6H PRN 05/23/16 01/31/19 06/19/18 History Docusate Sodium [Colace CAP] 100 mg PO QDAY 02/25/18 01/31/19 06/19/18 History Cyanocobalamin [Vitamin B-12] 1,000 mcg PO QDAY tablet 03/01/18 01/31/19 06/19/18 Rx Lispro Insulin [Humalog] 0 unit SUB-Q ACHS units 03/01/18 01/31/19 06/19/18 Rx Albuterol Sulfate [Proair 90 mcg IH Q4HR PRN #2 [email or web address] 06/15/18 01/31/19 06/19/18 Rx Respiclick] Acetaminophen [Acetaminophen ER 650 mg PO Q6H PRN 06/16/18 01/31/19 06/19/18 History TAB] Ergocalciferol [Vitamin D2] 50,000 unit PO QWEEK 06/16/18 01/31/19 Unknown History Linagliptin [Tradjenta] 5 mg PO QDAY 06/16/18 01/31/19 06/19/18 History Ondansetron [Zofran TAB] 4 mg PO Q8HR PRN 06/16/18 01/31/19 06/19/18 History Pantoprazole [Protonix] 40 mg PO QAM 06/16/18 01/31/19 06/19/18 History Triamcinolone Acetonide [Nasacort 1 spray NS Q24H PRN 06/16/18 01/31/19 06/19/18 History SPRAY] ALBUTEROL Inhaler (OR & NICU) 2 puff IH QID PRN 01/31/19 01/31/19 Unknown History [Proair] ALBUTEROL NEB's [Proventil 0.083% 2.5 mg IH Q4H 01/31/19 01/31/19 Unknown History NEBS] Albuterol Sulfate [Albuterol 0.63% 0.63 mg IH QID PRN 01/31/19 01/31/19 Unknown History NEBS] Antacid [Alum-Mag Hydrox-Simeth 30 ml PO Q8H PRN 01/31/19 01/31/19 Unknown History [id number] Susp] Benazepril HCl [Lotensin] 5 mg PO QDAY 01/31/19 01/31/19 Unknown History Bisacodyl [Bisac-Evac] 10 mg RC Q24H PRN 01/31/19 01/31/19 Unknown History Calcium Carbonate [Calcium] 2 tab PO QDAY 01/31/19 01/31/19 Unknown History Cromolyn Sodium [Nasalcrom] 1 spray NS Q6H PRN 01/31/19 01/31/19 Unknown History Cyclobenzaprine [Flexeril] 10 mg PO HS PRN 01/31/19 01/31/19 Unknown History Fexofenadine HCl [Minal Allergy] 180 mg PO QDAY 01/31/19 01/31/19 Unknown History Gabapentin [Neurontin] 100 mg PO BID 01/31/19 01/31/19 Unknown History Hydrocortisone [Procto-Med Hc] 1 applicatio RC Q12H PRN 01/31/19 01/31/19 Unknown History LORazepam [Ativan] 0.5 mg PO BID 01/31/19 01/31/19 Unknown History Magnesium Hydroxide [Milk of 30 ml PO Q12H PRN 01/31/19 01/31/19 Unknown History Magnesia] Montelukast [Singulair] 10 mg PO DAILY 01/31/19 01/31/19 Unknown History Morphine Sulfate [Morphine Sulfate 15 mg PO Q12H 01/31/19 01/31/19 Unknown History ER] Multivitamin Tab W-MINERAL 1 each PO QD 01/31/19 01/31/19 Unknown History [Multiple Vitamin/Mineral (Theragran M)] Nystatin [Nystop Powder] 1 applicatio TP BID 01/31/19 01/31/19 Unknown History Paroxetine HCl [Paxil] 30 mg PO QDAY 01/31/19 01/31/19 Unknown History Polyvinyl Alcohol [Liquitears] 1 drop OU Q8H PRN 01/31/19 01/31/19 Unknown History Potassium Chloride [K-Dur] 20 meq PO BID 01/31/19 01/31/19 Unknown History Sennosides [Senna] 8.6 mg PO Q12H PRN 01/31/19 01/31/19 Unknown History Torsemide [Demadex] 40 mg PO BID 01/31/19 01/31/19 Unknown History dilTIAZem HCl [Diltiazem HCl] 120 mg PO QAM 01/31/19 01/31/19 Unknown History guaiFENesin ER [Mucinex ER] 600 mg PO Q12H 01/31/19 01/31/19 Unknown History l Gasseri/B Bifidum/B Longum [Ra 1 each PO DAILY 01/31/19 01/31/19 Unknown History Probiotic Colon Care Cap] metroNIDAZOLE 0.75%(NF) [Metrogel 1 applicatio TP HS 01/31/19 01/31/19 Unknown History 0.75% TOPICAL] predniSONE [Deltasone] 20 mg PO QDAY 01/31/19 01/31/19 Unknown History Active Meds: Active Medications Acetaminophen (Tylenol) 650 mg PO Q4H PRN PRN Reason: Pain MILD(1-3)/Fever >100.5/[place] Albuterol (Proventil) 2.5 mg IH Q4HRT PRN PRN Reason: Shortness Of Breath Albuterol (Proventil) 2.5 mg IH TIDRT [facility] Last Admin: 02/02/19 14:06 Dose: 2.5 mg Documented by: Artificial Tears (Isopto Tears 0.5%) 1 drops OU Q8H PRN PRN Reason: Dry Eye(s) Bisacodyl (Dulcolax) 10 mg DC Q24H PRN PRN Reason: Constipation Calcium Carbonate/Glycine (Tums) 1,000 mg PO QDAY [facility] Last Admin: 02/02/19 11:08 Dose: 1,000 mg Documented by: Cyanocobalamin (Vitamin B-12) 1,000 mcg PO QDAY [facility] Last Admin: 02/02/19 11:08 Dose: 1,000 mcg Documented by: Cyclobenzaprine HCl (Flexeril) 10 mg PO HS PRN PRN Reason: Muscle Spasm Diltiazem HCl (Cardizem Cd) 120 mg PO QAM [facility] Last Admin: 02/02/19 11:16 Dose: 120 mg Documented by: Docusate Sodium (Colace) 100 mg PO QDAY [facility] Last Admin: 02/02/19 11:11 Dose: 100 mg Documented by: Enoxaparin Sodium (Lovenox) 40 mg SUB-Q QDAY@2200 [facility] Last Admin: 02/01/19 22:50 Dose: 40 mg Documented by: Ergocalciferol (Vitamin D2) 50,000 unit PO QWEEK [facility] Fluticasone Propionate (Flonase) 100 mcg NS QDAY PRN PRN Reason: ALLERGY SYMPTONS Gabapentin (Neurontin) 100 mg PO BID [facility] Last Admin: 02/02/19 11:11 Dose: 100 mg Documented by: Guaifenesin (Mucinex Er) 600 mg PO Q12H [facility] Last Admin: 02/02/19 12:38 Dose: 600 mg Documented by: Hydromorphone HCl (Dilaudid) 0.5 mg IV Q3H PRN PRN Reason: Pain , Severe (7-10) Ampicillin Sodium/Sulbactam Sodium (Unasyn/Ns 3 Gm/100 Ml) 3 gm in 100 mls @ 100 mls/hr IV Q6HR [facility]; Protocol Last Admin: 02/02/19 12:38 Dose: 100 mls/hr Documented by: Vancomycin HCl 1,500 mg/ (Sodium Chloride) 530 mls @ 333.333 mls/hr IV Q12H [facility] Last Admin: 02/02/19 07:04 Dose: 333.333 mls/hr Documented by: Insulin Human Lispro (Humalog) 0 unit SUB-Q ACHS [facility]; Protocol Last Admin: 02/02/19 11:30 Dose: 2 unit Documented by: Lacosamide (Vimpat) 50 mg PO Q12HR [facility] Last Admin: 02/02/19 11:13 Dose: 50 mg Documented by: Linagliptin (Tradjenta) 5 mg PO QDAY [facility] Last Admin: 02/02/19 11:17 Dose: 5 mg Documented by: Lisinopril (Zestril) 5 mg PO QDAY [facility] Last Admin: 02/02/19 11:12 Dose: 5 mg Documented by: Loratadine (Claritin) 10 mg PO DAILY [facility] Last Admin: 02/02/19 11:13 Dose: 10 mg Documented by: Lorazepam (Ativan) 0.5 mg PO BID [facility] Last Admin: 02/02/19 11:11 Dose: 0.5 mg Documented by: Miscellaneous Medication (Cromolyn Sodium [Nasalcrom]) 1 spray NS Q6H PRN PRN Reason: Nasal Congestion Montelukast Sodium (Singulair) 10 mg PO QPM [facility] Last Admin: 02/01/19 17:36 Dose: 10 mg Documented by: Morphine Sulfate (Ms Contin Er) 15 mg PO Q12H [facility] Last Admin: 02/02/19 07:03 Dose: 15 mg Documented by: Multivitamins/Minerals (Theragran-M Tab) 1 each PO QDAY [facility] Last Admin: 02/02/19 11:10 Dose: 1 each Documented by: Nystatin (Nystop) 1 applic TP BID [facility] Last Admin: 02/02/19 11:18 Dose: 1 applic Documented by: Ondansetron HCl (Zofran Odt) 4 mg PO Q8H PRN PRN Reason: Nausea Ondansetron HCl (Zofran) 4 mg IV Q8H PRN PRN Reason: Nausea And Vomiting Last Admin: 02/01/19 12:57 Dose: 4 mg Documented by: Pantoprazole Sodium (Protonix) 40 mg PO QAM [facility] Last Admin: 02/02/19 11:14 Dose: 40 mg Documented by: Paroxetine HCl (Paxil) 30 mg PO QDAY [facility] Last Admin: 02/02/19 11:15 Dose: 30 mg Documented by: Potassium Chloride (K-Dur) 20 meq PO BID [facility] Last Admin: 02/02/19 11:14 Dose: 20 meq Documented by: Prednisone (Deltasone) 20 mg PO QDAY [facility] Last Admin: 02/02/19 11:13 Dose: 20 mg Documented by: Senna (Senokot) 8.6 mg PO Q12H PRN PRN Reason: Constipation Sodium Chloride (Sodium Chloride Flush Syringe 10 Ml) 10 ml IV BID [facility] Last Admin: 02/02/19 11:17 Dose: 10 ml Documented by: Sodium Chloride (Sodium Chloride Flush Syringe 10 Ml) 10 ml IV PRN PRN PRN Reason: LINE FLUSH Torsemide (Demadex) 40 mg PO BID [facility] Last Admin: 02/02/19 11:08 Dose: 40 mg Documented by: Physical Examination - Physical Exam Narrative exam: General appearance: Alert in NAD, conversant obese Eyes: anicteric sclerae, moist conjunctivae; no lid-lag; PERRLA HENT: Atraumatic; oropharynx clear with moist mucous membranes and no mucosal ulcerations/no oral thrush; normal hard and soft palate. Normal external ears. Neck: Trachea midline; supple, no thyromegaly or lymphadenopathy Lungs: CTA, with normal respiratory effort and no intercostal retractions CV: RRR, no murmurs Abdomen: Soft, non-tender; no masses or hepatosplenomegaly Extremities: left post thigh with open wound with slough and purulence, mild sanjuanita wound erythema Skin: Normal temperature, turgor and texture; no rash, ulcers or subcutaneous nodules Psych: Appropriate affect, alert and oriented to person, place and time. Neuro: alert and oriented x 3. Moving all extermities - Constitutional Vitals: Vital Signs Temp Pulse Resp BP Pulse Ox 98.3 F 93 H 20 136/79 97 02/02/19 06:21 02/02/19 14:22 02/02/19 14:22 02/02/19 11:12 02/02/19 10:00 Temperature -Last 24 Hours Temperature 98.3 F Temperature 98.7 F Results - Labs CBC & Chem 7: 02/02/19 05:30 02/02/19 05:30 Labs: Abnormal lab results 02/01/19 02/01/19 02/02/19 Range/Units 16:26 21:41 05:30 MCH 33 H (28-32) pg RDW 16.0 H (13.2-15.2) % Seg Neuts % (Manual) 86.0 H (40.0-70.0) % Lymphocytes % (Manual) 6.0 L (13.4-35.0) % Lymphocytes # (Manual) 0.5 L (1.2-5.4) K/mm3 Glucose (65-100) mg/dL POC Glucose 150 H 301 H (70-105) Calcium (8.4-10.2) mg/dL ALT (7-56) units/L Total Protein (6.3-8.2) g/dL Albumin (3.9-5) g/dL 02/02/19 02/02/19 02/02/19 Range/Units 05:30 07:58 12:22 MCH (28-32) pg RDW (13.2-15.2) % Seg Neuts % (Manual) (40.0-70.0) % Lymphocytes % (Manual) (13.4-35.0) % Lymphocytes # (Manual) (1.2-5.4) K/mm3 Glucose 217 H (65-100) mg/dL POC Glucose 145 H 167 H (70-105) Calcium 7.9 L (8.4-10.2) mg/dL ALT 77 H (7-56) units/L Total Protein 5.2 L (6.3-8.2) g/dL Albumin 3.4 L (3.9-5) g/dL Assessment and Plan Cultures: Wound culture at [facility] on 01/30/2019 MRSA. Blood culture 01/31/2019 no growth today. Wound culture 01/31/2019 Staph. Assessment: 63 y/o female with history of COPD, Chronic Respiratory Failure, OA, DM, CHF, HTN, PE, Seizure Disorder and left posterior thigh multi-loculated mass s/p removal on 06/20/2018; admitted on 01/30/2019 due to worsening burning pain and drainage from non-healing surgical wound: 1) Left posterior thigh non-healing surgical wound infected: this is a chronic infection not responding to oral antibiotics. She had a left posterior thigh multi-loculated mass s/p removal on 06/20/2018. Path showed fibroadipose tissue with marked acute and chronic inflammation, granulomas, granulation tissue, microcalcification with negative GMS and AFB and positive wound cultures for MRSA. Unclear if she received any antibiotic therapy for this at that time. Her left posterior thigh surgical wound dehisced several months ago and she has been seeing Wound Clinic. Wound culture at [facility] Clinic on 01/30/2019 grew MRSA. She has multiple drug allergies. Blood culture 01/31/2019 no growth today. Wound culture 01/31/[address] leg showed there is a skin defect in the posterior left thigh. No underlying fluid collection is present. Moderate to large left knee joint effusion. Recommendations: - follow-up blood cultures, wound culture - start unasyn - continue vancomcyin IV for now with PK consult - contact isolation - cannot do zyvox becuase she is on paxil - upon discharge will do vancomycin 1,500 mg IV q 12 hours total 14 days until 02/15/2019 - place PICC - ID clinic in 3 weeks Will follow. Gisele Duran MD Infectious Diseases [employer] [facility] M [phone] O [phone]
[2019-02-02] MEDS: SINGULAIR PO SCH (17:58)
[2019-02-02] MEDS: LOVENOX SUB-Q SCH (21:08)
[2019-02-02] MEDS ORDERED: TUMS PO ONE (23:00)
[2019-02-03] MEDS: MUCINEX ER PO SCH ×3 (00:26→19:03)
[2019-02-03] MEDS: NYSTOP TP SCH ×3 (00:58→21:31)
[2019-02-03] MEDS: SODIUM CHLORIDE FLUSH SYRINGE 10 ML IV SCH ×3 (00:59→21:31)
[2019-02-03] MEDS: MS CONTIN ER PO SCH ×2 (05:49→19:03)
[2019-02-03] MEDS: VANCOMYCIN 1,500 MG in NACL 0.9% 500 ML 500 ML IV SCH ×2 (05:49→19:04)
[2019-02-03] MEDS: PROVENTIL IH SCH ×4 (08:53→19:50)
[2019-02-03] MEDS: HumaLOG SUB-Q SCH ×4 (09:39→21:46)
[2019-02-03] MEDS: NEURONTIN PO SCH ×2 (12:10→21:31)
[2019-02-03] MEDS: TUMS PO SCH (12:10)
[2019-02-03] MEDS: PROTONIX PO SCH (12:11)
[2019-02-03] MEDS: THERAGRAN-M Tab PO SCH (12:12)
[2019-02-03] MEDS: COLACE PO SCH (12:17)
[2019-02-03] MEDS: ATIVAN PO SCH ×2 (12:17→21:31)
[2019-02-03] MEDS: K-DUR PO SCH ×2 (12:18→21:31)
[2019-02-03] MEDS: DELTASONE PO SCH (12:18)
[2019-02-03] MEDS: VIMPAT PO SCH ×2 (12:18→21:31)
[2019-02-03] MEDS: PAXIL PO SCH (12:19)
[2019-02-03] MEDS: VITAMIN B-12 PO SCH (12:19)
[2019-02-03] MEDS: TRADJENTA PO SCH (12:20)
[2019-02-03] MEDS: DEMADEX PO SCH ×2 (12:21→21:31)
[2019-02-03] MEDS: CLARITIN PO SCH (12:23)
[2019-02-03] MEDS: CARDIZEM CD PO SCH (12:28)
[2019-02-03] MEDS: ZESTRIL PO SCH (12:28)
--- NOTE | 2019-02-03 12:29 | XRay Report ---
PORTABLE CHEST INDICATION: Left upper arm PICC placement. COMPARISON: 06/15/2018 FINDINGS: Portable, frontal chest radiograph demonstrates new left upper extremity PICC extending centrally. Its tip not well seen overlying the spine, though questioned about the cavoatrial junction. Stable cardiomediastinal silhouette/possible cardiomegaly. Otherwise clear lungs without pleural effusions or CHF. Advanced left shoulder degenerative changes again noted. CONCLUSION: Interval left upper extremity PICC placement and few other findings, as described. Thank you for the opportunity to participate in this patient's care.
--- NOTE | 2019-02-03 12:31 | Discharge Summary ---
Providers - Providers Date of Admission: 01/31/19 18:11 Date of discharge: 02/03/19 Attending physician: ABRAN XIAO 01/31/19 17:19 Consult to Physician [CONS] Stat Comment: Consulting Provider: BRITANY HARTMAN Physician Instructions: Reason For Exam: wound infection 02/01/19 Consult to Case Management [CONS] Routine Services Needed at Discharge: Home Health Services Notified:: cm 02/01/19 03:15 Consult to Dietitian/Nutrition [CONS] Routine Physician Instructions: Reason For Exam: Reason for Consult: Diet education 02/01/19 08:55 Consult to Wound/ET Nurse [CONS] Routine Reason For Exam: wound eval 02/02/19 10:48 Consult to Physician [CONS] Routine Comment: Consulting Provider: DALTON MCNULTY Physician Instructions: please refer to cultures from 01/30 (prior visit) Reason For Exam: MRSA - left thigh wound, multiple abx allergies 02/02/19 16:18 Consult to PICC Line RN [CONS] Routine Reason For Exam: IV vanco x 2 weeks Type Line:: PICC 02/02/19 16:42 Consult to Case Management [CONS] Routine Services Needed at Discharge: Home Health Services Notified:: COPY GIVEN TO CM Additional Physician Instructions: [facility] M [phone] O [phone] F [phone] OUTPATIENT PARENTERAL ANTIBIOTIC THERAPY ORDERS Diagnoses: Left posterior thigh non- healing surgical wound infected: this is a chronic infection not responding to oral antibiotics Antimicrobial administration: upon discharge will do vancomycin 1,500 mg IV q 12 hours total 14 days until 02/15/2019 Remove MIDLINE line after last dose unless otherwise instructed. Lines: MIDLINE Lab monitoring: CBC, BUN, Creatinine, ALT, AST, vancomycin trough once a week preferly on Wednesday morning. Please fax results to [phone] and call [phone] for critical lab results. Alisson Snow NP/Gisele Grubbs MD Date: 02/02/19 Primary care physician: GLADYS THOMAS Hospitalization Reason for admission: left thigh pain Condition: Stable Hospital course: Brief history: 63 yo F with history of COPD, Chronic Respiratory Failure, OA, DM, CHF, HTN, PE, Seizure Disorder and left posterior thigh multi-loculated mass s/p removal on 06/20/2018; admitted on 01/30/2019 due to worsening burning pain and drainage from non-healing surgical wound: CT LE: There is a skin defect in the posterior left thigh. No underlying fluid collection is present. Moderate to large left knee joint effusion. Discharge diagnosis and management: Left posterior thigh non-healing infected surgical wound infected: - CT leg showed there is a skin defect in the posterior left thigh. No underlying fluid collection is present. Moderate to large left knee joint effusion. - no surgical debridement needed - wound cx growing MRSA, placed on vanco, consulted ID - ID recommended to cont vancomycin 1,500 mg IV q 12 hours total 14 days until 02/15/2019 (cannot do zyvox becuase she is on paxil ) Other chronic issue DM type 2 COPD, stable Morbid Obesity GINNA - Placed on consistent carb diet, SSI/insulin - Resumed home meds - Given DVT Px and supportive care - patient was then discharged to SNF in stable condition Physical exam: General appearance: Present: no acute distress, obese - EENT Eyes: PERRL, EOM intact ENT: hearing intact, clear oral mucosa Ears: bilateral: normal - Neck Neck: supple, normal ROM - Respiratory Respiratory effort: normal Respiratory: bilateral: CTA - Cardiovascular Rhythm: regular Heart Sounds: Present: S1 & S2. Absent: gallop, rub Extremities: pulses intact, No edema, normal color, Full ROM Extremity abnormal: other (wound dressing on the posterior surface of left t high) - Gastrointestinal General gastrointestinal: Present: soft, non-tender, non-distended, normal bowel sounds - Integumentary Integumentary: clear, warm, dry - Musculoskeletal Musculoskeletal: 1, strength equal bilaterally - Neurologic Neurologic: moves all extremities - Psychiatric Psychiatric: memory intact, appropriate mood/affect, intact judgment & insight Disposition: DC/[facility]-03 [facility] Time spent for discharge: 34 minutes Core Measure Documentation - Palliative Care Palliative Care/ Comfort Measures: Not Applicable - Core Measures Any of the following diagnoses?: none Exam - Constitutional Vitals: Temp Pulse Resp BP Pulse Ox 98.5 F 83 20 123/50 96 02/03/19 06:22 02/03/19 09:05 02/03/19 09:05 02/03/19 12:08 02/03/19 08:53 Plan Activity: advance as tolerated Weight Bearing Status: Weight Bear as Tolerated Diet: low fat, diabetic Follow up with: GLADYS THOMAS MD [Primary Care Provider] - 7 Days
--- NOTE | 2019-02-03 14:45 | XRay Report ---
PORTABLE CHEST INDICATION: Left arm PICC placement. COMPARISON: 11:44 AM earlier today. FINDINGS: Portable, frontal chest radiograph, 1:21 p.m., 02/03/2019 again demonstrates left upper extremity PICC tip extending centrally, though its tip not well seen overlying the spine and again questioned about the cavoatrial junction. CONCLUSION: No significant change since earlier today. Thank you for the opportunity to participate in this patient's care.
--- NOTE | 2019-02-03 15:19 | Progress Note ---
Assessment and Plan Cultures: Wound culture at [facility] on 01/30/2019 MRSA. Blood culture 01/31/2019 no growth today. Wound culture 01/31/2019 MRSA Assessment: 63 y/o female with history of COPD, Chronic Respiratory Failure, OA, DM, CHF, HTN, PE, Seizure Disorder and left posterior thigh multi-loculated mass s/p removal on 06/20/2018; admitted on 01/30/2019 due to worsening burning pain and drainage from non-healing surgical wound: 1) Left posterior thigh non-healing surgical wound infected: this is a chronic infection not responding to oral antibiotics. She had a left posterior thigh multi-loculated mass s/p removal on 06/20/2018. Path showed fibroadipose tissue with marked acute and chronic inflammation, granulomas, granulation tissue, microcalcification with negative GMS and AFB and positive wound cultures for MRSA. Unclear if she received any antibiotic therapy for this at that time. Her left posterior thigh surgical wound dehisced several months ago and she has been seeing [facility]. Wound culture at [facility] on 01/30/2019 grew MRSA. She has multiple drug allergies. Blood culture 01/31/2019 no growth today. Wound culture 01/31/[address] leg showed there is a skin defect in the posterior left thigh. No underlying fluid collection is present. Moderate to large left knee joint effusion. Recommendations: - stop unasyn - continue vancomcyin IV for now with PK consult - contact isolation - upon discharge will do vancomycin 1,500 mg IV q 12 hours total 14 days until 02/15/2019 - ID clinic in 3 weeks Will follow. Gisele Duran MD Infectious Diseases Clinical Rehabilitation Liaison [facility] M [phone] O [phone] Subjective Date of service: 02/03/19 Principal diagnosis: leg wound Interval history: Feels better, leg pain better, no fever. Objective - Exam Narrative Exam: General appearance: Alert in NAD, conversant obese Eyes: anicteric sclerae, moist conjunctivae; no lid-lag; PERRLA HENT: Atraumatic; oropharynx clear with moist mucous membranes and no mucosal ulcerations/no oral thrush; normal hard and soft palate. Normal external ears. Neck: Trachea midline; supple, no thyromegaly or lymphadenopathy Lungs: CTA, with normal respiratory effort and no intercostal retractions CV: RRR, no murmurs Abdomen: Soft, non-tender; no masses or hepatosplenomegaly Extremities: left post thigh with open wound with slough and purulence, mild sanjuanita wound erythema Skin: Normal temperature, turgor and texture; no rash, ulcers or subcutaneous nodules Psych: Appropriate affect, alert and oriented to person, place and time. Neuro: alert and oriented x 3. Moving all extermities - Constitutional Vitals: Vital Signs Temp Pulse Resp BP Pulse Ox 98.5 F 70 20 123/50 96 02/03/19 06:22 02/03/19 12:32 02/03/19 12:32 02/03/19 12:08 02/03/19 08:53 Temperature -Last 24 Hours Temperature 98.5 F Temperature 97.7 F Temperature 97.9 F - Labs CBC & Chem 7: 02/02/19 05:30 02/02/19 05:30 Labs: Abnormal lab results 02/02/19 02/02/19 02/03/19 Range/Units 17:12 21:31 12:23 POC Glucose 265 H 184 H 140 H (70-105)
[2019-02-03 17:36] VITALS: BP 122/46
[2019-02-03] MEDS: SINGULAIR PO SCH (19:03)
[2019-02-03] MEDS: LOVENOX SUB-Q SCH (21:30)
[2019-02-09] MEDS ORDERED: VITAMIN D2 PO SCH (10:00)
== END 2019-02-03 21:55 | DRG 863 ==
LOC: ED 14:02 → 3A 18:11
PROVIDERS: ADMIT Internal Medicine; ATTEND Internal Medicine
PROC: 5A09457 Assistance with Respiratory Ventilation, 24-96 Consecutive Hours, Continuous Positive Airway Pressure (ICD-10-PCS; principal; 2019-02-01)
PROC: 05HY33Z Insertion of Infusion Device into Upper Vein, Percutaneous Approach (ICD-10-PCS; 2019-02-03)
DX: T81.49XA Infection following a procedure, other surgical site, initial encounter (principal); L03.116 Cellulitis of left lower limb; Z68.41 Body mass index [BMI] 40.0-44.9, adult; J96.10 Chronic respiratory failure, unspecified whether with hypoxia or hypercapnia; L97.128 Non-pressure chronic ulcer of left thigh with other specified severity; E11.622 Type 2 diabetes mellitus with other skin ulcer; E66.01 Morbid (severe) obesity due to excess calories; M19.90 Unspecified osteoarthritis, unspecified site; J44.9 Chronic obstructive pulmonary disease, unspecified; I50.9 Heart failure, unspecified; I11.0 Hypertensive heart disease with heart failure; G40.909 Epilepsy, unspecified, not intractable, without status epilepticus; G47.33 Obstructive sleep apnea (adult) (pediatric); E55.9 Vitamin D deficiency, unspecified; Z66 Do not resuscitate; E11.40 Type 2 diabetes mellitus with diabetic neuropathy, unspecified; F41.1 Generalized anxiety disorder; K21.9 Gastro-esophageal reflux disease without esophagitis; Z71.3 Dietary counseling and surveillance; Z86.711 Personal history of pulmonary embolism; Z90.49 Acquired absence of other specified parts of digestive tract; Z90.710 Acquired absence of both cervix and uterus; Z82.49 Family history of ischemic heart disease and other diseases of the circulatory system
CPT/HCPCS: 36415; 71045; 80053; 80202; 82962; 83036; 84484; 85007; 85025; 87040; 87075; 87076; 87116; 87186; 94640; 94660; 94760; 96374; 96375; G0378; J0295; J1650; J1815; J2270; J2405; J3370; J7040; J7512

== ENCOUNTER 2019-02-06 09:46 | Outpatient (CLI) | payer MEDICARE ==
[2019-02-06] MEDS ORDERED: XYLOCAINE TOPICAL 4% TP ONE (10:30)
== END 2019-02-06 09:47 | disposition home or self-care (01) ==
LOC: WOUND 09:46
PROVIDERS: ATTEND Surgery
DX: T81.89XD Other complications of procedures, not elsewhere classified, subsequent encounter (principal); E11.622 Type 2 diabetes mellitus with other skin ulcer; L97.122 Non-pressure chronic ulcer of left thigh with fat layer exposed; E66.9 Obesity, unspecified; Z68.41 Body mass index [BMI] 40.0-44.9, adult; Y83.8 Other surgical procedures as the cause of abnormal reaction of the patient, or of later complication, without mention of misadventure at the time of the procedure

== ENCOUNTER 2019-02-13 09:20 | Outpatient (CLI) | payer MEDICARE ==
[2019-02-13] MEDS ORDERED: XYLOCAINE TOPICAL 4% TP ONE (10:00)
== END 2019-02-13 09:21 | disposition home or self-care (01) ==
LOC: WOUND 09:20
PROVIDERS: ATTEND Surgery
DX: T81.89XD Other complications of procedures, not elsewhere classified, subsequent encounter (principal); E11.622 Type 2 diabetes mellitus with other skin ulcer; L97.122 Non-pressure chronic ulcer of left thigh with fat layer exposed; E66.9 Obesity, unspecified; Z68.41 Body mass index [BMI] 40.0-44.9, adult; Y83.8 Other surgical procedures as the cause of abnormal reaction of the patient, or of later complication, without mention of misadventure at the time of the procedure

== ENCOUNTER 2019-03-07 09:30 | Outpatient (CLI) | payer MEDICARE | END 2019-03-07 09:31 | disposition home or self-care (01) | LOC: WOUND 09:30 | PROVIDERS: ATTEND Surgery | DX: T81.89XD Other complications of procedures, not elsewhere classified, subsequent encounter (principal); E11.622 Type 2 diabetes mellitus with other skin ulcer; L97.122 Non-pressure chronic ulcer of left thigh with fat layer exposed; E66.9 Obesity, unspecified; Z68.41 Body mass index [BMI] 40.0-44.9, adult; Y83.8 Other surgical procedures as the cause of abnormal reaction of the patient, or of later complication, without mention of misadventure at the time of the procedure ==

== ENCOUNTER 2019-03-13 09:40 | Outpatient (CLI) | payer MEDICARE | END 2019-03-13 09:41 | disposition home or self-care (01) | LOC: WOUND 09:40 | PROVIDERS: ATTEND Surgery | DX: T81.89XD Other complications of procedures, not elsewhere classified, subsequent encounter (principal); E11.622 Type 2 diabetes mellitus with other skin ulcer; L97.122 Non-pressure chronic ulcer of left thigh with fat layer exposed; E66.9 Obesity, unspecified; Z68.41 Body mass index [BMI] 40.0-44.9, adult; Y83.8 Other surgical procedures as the cause of abnormal reaction of the patient, or of later complication, without mention of misadventure at the time of the procedure ==

== ENCOUNTER 2019-03-21 10:05 | Outpatient (CLI) | payer MEDICARE | END 2019-03-21 10:06 | disposition home or self-care (01) | LOC: WOUND 10:05 | PROVIDERS: ATTEND Surgery | DX: T81.89XD Other complications of procedures, not elsewhere classified, subsequent encounter (principal); E11.622 Type 2 diabetes mellitus with other skin ulcer; L97.122 Non-pressure chronic ulcer of left thigh with fat layer exposed; E66.9 Obesity, unspecified; Z68.41 Body mass index [BMI] 40.0-44.9, adult; Y83.8 Other surgical procedures as the cause of abnormal reaction of the patient, or of later complication, without mention of misadventure at the time of the procedure ==

== ENCOUNTER 2019-03-27 09:33 | Outpatient (CLI) | payer MEDICARE | END 2019-03-27 09:34 | disposition home or self-care (01) | LOC: WOUND 09:33 | PROVIDERS: ATTEND Surgery | DX: T81.89XD Other complications of procedures, not elsewhere classified, subsequent encounter (principal); E11.622 Type 2 diabetes mellitus with other skin ulcer; L97.122 Non-pressure chronic ulcer of left thigh with fat layer exposed; E66.9 Obesity, unspecified; Z68.41 Body mass index [BMI] 40.0-44.9, adult; Y83.8 Other surgical procedures as the cause of abnormal reaction of the patient, or of later complication, without mention of misadventure at the time of the procedure ==

== ENCOUNTER 2019-04-03 09:37 | Outpatient (CLI) | payer MEDICARE | END 2019-04-03 09:38 | disposition home or self-care (01) | LOC: WOUND 09:37 | PROVIDERS: ATTEND Surgery | DX: T81.89XD Other complications of procedures, not elsewhere classified, subsequent encounter (principal); E11.622 Type 2 diabetes mellitus with other skin ulcer; L97.122 Non-pressure chronic ulcer of left thigh with fat layer exposed; E66.9 Obesity, unspecified; Z68.41 Body mass index [BMI] 40.0-44.9, adult; Y83.8 Other surgical procedures as the cause of abnormal reaction of the patient, or of later complication, without mention of misadventure at the time of the procedure ==

== ENCOUNTER 2019-04-10 09:16 | Outpatient (CLI) | payer MEDICARE | END 2019-04-10 09:17 | disposition home or self-care (01) | LOC: WOUND 09:16 | PROVIDERS: ATTEND Surgery | DX: T81.89XD Other complications of procedures, not elsewhere classified, subsequent encounter (principal); E11.622 Type 2 diabetes mellitus with other skin ulcer; L97.122 Non-pressure chronic ulcer of left thigh with fat layer exposed; E66.9 Obesity, unspecified; Z68.41 Body mass index [BMI] 40.0-44.9, adult; Y83.8 Other surgical procedures as the cause of abnormal reaction of the patient, or of later complication, without mention of misadventure at the time of the procedure ==

== ENCOUNTER 2019-04-17 09:14 | Outpatient (CLI) | payer MEDICARE ==
[2019-04-17] MEDS ORDERED: XYLOCAINE TOPICAL 4% TP ONE (09:48)
== END 2019-04-17 09:15 | disposition home or self-care (01) ==
LOC: WOUND 09:14
PROVIDERS: ATTEND Surgery
DX: T81.89XD Other complications of procedures, not elsewhere classified, subsequent encounter (principal); E11.622 Type 2 diabetes mellitus with other skin ulcer; L97.122 Non-pressure chronic ulcer of left thigh with fat layer exposed; E66.9 Obesity, unspecified; Z68.41 Body mass index [BMI] 40.0-44.9, adult; Y83.8 Other surgical procedures as the cause of abnormal reaction of the patient, or of later complication, without mention of misadventure at the time of the procedure
CPT/HCPCS: 97605

== ENCOUNTER 2019-04-20 09:02 | Outpatient (CLI) | payer MEDICARE | END 2019-04-20 09:03 | disposition home or self-care (01) | LOC: WOUND 09:02 | PROVIDERS: ATTEND Surgery | DX: T81.89XD Other complications of procedures, not elsewhere classified, subsequent encounter (principal); E11.622 Type 2 diabetes mellitus with other skin ulcer; L97.122 Non-pressure chronic ulcer of left thigh with fat layer exposed; E66.9 Obesity, unspecified; Z68.41 Body mass index [BMI] 40.0-44.9, adult; Y83.8 Other surgical procedures as the cause of abnormal reaction of the patient, or of later complication, without mention of misadventure at the time of the procedure | CPT/HCPCS: 97607 ==

== ENCOUNTER 2019-04-24 08:58 | Outpatient (CLI) | payer MEDICARE ==
[2019-04-24] MEDS ORDERED: XYLOCAINE TOPICAL 4% TP ONE (10:00)
== END 2019-04-24 08:59 | disposition home or self-care (01) ==
LOC: WOUND 08:58
PROVIDERS: ATTEND Surgery
DX: T81.89XD Other complications of procedures, not elsewhere classified, subsequent encounter (principal); E11.622 Type 2 diabetes mellitus with other skin ulcer; L97.122 Non-pressure chronic ulcer of left thigh with fat layer exposed; E66.9 Obesity, unspecified; Z68.41 Body mass index [BMI] 40.0-44.9, adult; Y83.8 Other surgical procedures as the cause of abnormal reaction of the patient, or of later complication, without mention of misadventure at the time of the procedure
CPT/HCPCS: 97605

== ENCOUNTER 2019-05-01 09:23 | Outpatient (CLI) | payer MEDICARE ==
[2019-05-01] MEDS ORDERED: XYLOCAINE TOPICAL 4% TP ONE (10:00)
== END 2019-05-01 09:24 | disposition home or self-care (01) ==
LOC: WOUND 09:23
PROVIDERS: ATTEND Surgery
DX: T81.89XD Other complications of procedures, not elsewhere classified, subsequent encounter (principal); E11.622 Type 2 diabetes mellitus with other skin ulcer; L97.122 Non-pressure chronic ulcer of left thigh with fat layer exposed; E66.9 Obesity, unspecified; Z68.41 Body mass index [BMI] 40.0-44.9, adult; Y83.8 Other surgical procedures as the cause of abnormal reaction of the patient, or of later complication, without mention of misadventure at the time of the procedure
CPT/HCPCS: 97605

== ENCOUNTER 2019-05-08 09:16 | Outpatient (CLI) | payer MEDICARE ==
[2019-05-08] MEDS ORDERED: XYLOCAINE TOPICAL 4% TP ONE (10:30)
== END 2019-05-08 09:17 | disposition home or self-care (01) ==
LOC: WOUND 09:16
PROVIDERS: ATTEND Surgery
DX: T81.89XD Other complications of procedures, not elsewhere classified, subsequent encounter (principal); E11.622 Type 2 diabetes mellitus with other skin ulcer; L97.122 Non-pressure chronic ulcer of left thigh with fat layer exposed; E66.9 Obesity, unspecified; Z68.41 Body mass index [BMI] 40.0-44.9, adult; Y83.8 Other surgical procedures as the cause of abnormal reaction of the patient, or of later complication, without mention of misadventure at the time of the procedure
CPT/HCPCS: 97605

== ENCOUNTER 2019-05-16 07:45 | Outpatient (CLI) | payer MEDICARE ==
[2019-05-16] MEDS ORDERED: XYLOCAINE TOPICAL 4% TP ONE (08:30)
== END 2019-05-16 07:46 | disposition home or self-care (01) ==
LOC: WOUND 07:45
PROVIDERS: ATTEND Surgery
DX: T81.89XD Other complications of procedures, not elsewhere classified, subsequent encounter (principal); E11.622 Type 2 diabetes mellitus with other skin ulcer; L97.122 Non-pressure chronic ulcer of left thigh with fat layer exposed; E66.9 Obesity, unspecified; Z68.41 Body mass index [BMI] 40.0-44.9, adult; Y83.8 Other surgical procedures as the cause of abnormal reaction of the patient, or of later complication, without mention of misadventure at the time of the procedure
CPT/HCPCS: 97605

== ENCOUNTER 2019-05-22 10:02 | Outpatient (CLI) | payer MEDICARE ==
[2019-05-22] MEDS ORDERED: XYLOCAINE TOPICAL 4% TP ONE (11:00)
== END 2019-05-22 10:03 | disposition home or self-care (01) ==
LOC: WOUND 10:02
PROVIDERS: ATTEND Surgery
DX: T81.89XD Other complications of procedures, not elsewhere classified, subsequent encounter (principal); E11.622 Type 2 diabetes mellitus with other skin ulcer; L97.122 Non-pressure chronic ulcer of left thigh with fat layer exposed; E66.9 Obesity, unspecified; Z68.41 Body mass index [BMI] 40.0-44.9, adult; Y83.8 Other surgical procedures as the cause of abnormal reaction of the patient, or of later complication, without mention of misadventure at the time of the procedure

== ENCOUNTER 2019-05-29 09:53 | Outpatient (CLI) | payer MEDICARE ==
[2019-05-29] MEDS ORDERED: XYLOCAINE TOPICAL 4% TP ONE (10:30)
== END 2019-05-29 09:54 | disposition home or self-care (01) ==
LOC: WOUND 09:53
PROVIDERS: ATTEND Surgery
DX: T81.89XD Other complications of procedures, not elsewhere classified, subsequent encounter (principal); E11.622 Type 2 diabetes mellitus with other skin ulcer; L97.122 Non-pressure chronic ulcer of left thigh with fat layer exposed; E66.9 Obesity, unspecified; Z68.41 Body mass index [BMI] 40.0-44.9, adult; Y83.8 Other surgical procedures as the cause of abnormal reaction of the patient, or of later complication, without mention of misadventure at the time of the procedure

== ENCOUNTER 2019-06-05 10:06 | Outpatient (CLI) | payer MEDICARE | END 2019-06-05 10:07 | disposition home or self-care (01) | LOC: WOUND 10:06 | PROVIDERS: ATTEND Surgery | DX: T81.89XD Other complications of procedures, not elsewhere classified, subsequent encounter (principal); E11.622 Type 2 diabetes mellitus with other skin ulcer; L97.122 Non-pressure chronic ulcer of left thigh with fat layer exposed; E66.9 Obesity, unspecified; Z68.35 Body mass index [BMI] 35.0-35.9, adult; Y83.8 Other surgical procedures as the cause of abnormal reaction of the patient, or of later complication, without mention of misadventure at the time of the procedure ==

== ENCOUNTER 2019-06-19 09:19 | Outpatient (CLI) | payer MEDICARE ==
[2019-06-19] MEDS ORDERED: SILVER NITRATE TP ONE (10:30)
[2019-06-19] MEDS ORDERED: XYLOCAINE TOPICAL 4% TP ONE (10:30)
== END 2019-06-19 09:20 | disposition home or self-care (01) ==
LOC: WOUND 09:19
PROVIDERS: ATTEND Surgery
DX: T81.89XD Other complications of procedures, not elsewhere classified, subsequent encounter (principal); E11.622 Type 2 diabetes mellitus with other skin ulcer; L97.122 Non-pressure chronic ulcer of left thigh with fat layer exposed; E66.9 Obesity, unspecified; Z68.35 Body mass index [BMI] 35.0-35.9, adult; Y83.8 Other surgical procedures as the cause of abnormal reaction of the patient, or of later complication, without mention of misadventure at the time of the procedure

== ENCOUNTER 2019-09-19 12:43 | Inpatient (IN) | payer MEDICARE ==
[2019-09-19] MEDS ORDERED: methylPREDNISolone Sod Succinate 125 MG/2 ML INJ IV ONE (14:51)
[2019-09-19] MEDS ORDERED: ALBUTEROL 2.5 MG/3 ML NEBU IH ONE (14:56)
[2019-09-19] MEDS ORDERED: IPRATROPIUM 0.02% NEBU 2.5 ML IH ONE (14:56)
[2019-09-19 15:25] LABS: Hematocrit 45.6 % (30.3-42.9); Hemoglobin 15.1 gm/dl (10.1-14.3); Mean Corpuscular HGB Conc 33 % (30-34); Mean Corpuscular Volume 94 fl (79-97); Platelet Count 233 K/mm3 (140-440); Red Blood Count 4.86 M/mm3 (3.65-5.03); Red Cell Distribution Width 13.9 % (13.2-15.2)
--- NOTE | 2019-09-19 15:32 | XRay Report ---
CHEST 1 VIEW INDICATION: Dyspnea. COMPARISON: 02/03/2019 FINDINGS: Support devices: None. Heart: Mild cardiomegaly. Lungs/Pleura: Mild pulmonary venous congestion. No convincing infiltrate, pleural effusion or pneumot horax. Additional findings: None. IMPRESSION: Mild cardiomegaly and central pulmonary venous congestion. Signer Name: Harvey Burns Jr, MD Signed: 09/19/2019 3:27 PM Workstation Name: [id number]
[2019-09-19 15:34] LABS: INR 1.04 (0.87-1.13); Partial Thromboplastin Time 21.4 Sec. (24.2-36.6)
[2019-09-19 15:52] LABS: Alanine Aminotransferase 25 units/L (7-56); Albumin 3.7 g/dL (3.9-5); BUN/Creatinine Ratio 17; Blood Urea Nitrogen 15 mg/dL (7-17); Calcium 8.4 mg/dL (8.4-10.2); Hemolysis Index 20
[2019-09-19 16:18] LABS: Bilirubin,Urine NEG (Negative); Blood,Urine NEG (Negative); Color,Urine Straw (Yellow); Protein,Urine <15 mg/dL mg/dL (Negative); Urobilinogen,Urine < 2.0 mg/dL (<2.0)
[2019-09-19] MEDS ORDERED: CEFEPIME/NS 2 GM/100 ML 2 GM/100 ML BAG IV ONE (17:54)
--- NOTE | 2019-09-19 17:57 | Emergency Department Report ---
<DEBORAH BELLA - Last Filed: 09/19/19 17:54> ED General Adult HPI - General Chief complaint: Dyspnea/Respdistress Stated complaint: CHEST PAIN/SHORTNESS OF BREATH Time Seen by Provider: 09/19/19 13:28 Source: patient Mode of arrival: Stretcher Limitations: No Limitations - History of Present Illness Initial comments: Patient presents to the emergency department with a chief complaint of a cough with chest pain. 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 Julio last and was diagnosed again with pneumonia. Patient she has a history of COPD and is on 3 L nasal cannula at home. Patient states she is on difficult time catching her breath. -: Gradual, week(s) Location: chest Severity scale (0 -10): 3 Quality: dull Consistency: constant Improves with: rest Worsens with: movement Associated Symptoms: denies other symptoms Treatments Prior to Arrival: none - Related Data Home Medications Medication Instructions Recorded Confirmed Last Taken ALBUTEROL NEB's [Proventil 0.083% 2.5 mg IH QDAY 09/19/19 09/19/19 09/19/19 NEBS] Benazepril HCl [Lotensin] 5 mg PO BID 09/19/19 09/19/19 09/19/19 Cyclobenzaprine [Flexeril] 10 mg PO QHS 09/19/19 09/19/19 09/18/19 Fexofenadine HCl 180 mg PO QDAY 09/19/19 09/19/19 09/19/19 Gabapentin [Neurontin] 100 mg PO BID 09/19/19 09/19/19 09/19/19 Jody-Lanta Liquid 30 ml PO Q8H 09/19/19 09/19/19 09/18/19 Guaifenesin/Pseudoephedrne HCl 600 mg PO QDAY 09/19/19 09/19/19 09/18/19 [Mucinex D ER 600-60 mg Tablet] LORazepam [Ativan] 0.5 mg PO BID 09/19/19 09/19/19 09/18/19 Lacosamide [Vimpat] 50 mg PO Q12HR 09/19/19 09/19/19 09/19/19 Linagliptin [Tradjenta] 5 mg PO QDAY 09/19/19 09/19/19 09/19/19 Montelukast [Singulair] 10 mg PO QHS 09/19/19 09/19/19 09/18/19 Morphine [Morphine TAB] 15 mg PO QDAY 09/19/19 09/19/19 09/18/19 Multivit,Calc,Mins/Iron/Folic 1 tab PO QDAY 09/19/19 09/19/19 09/19/19 [Thera M Plus Tablet] PARoxetine HCl [Paroxetine] 30 mg PO QDAY 09/19/19 09/19/19 09/19/19 Pantoprazole Sodium [Protonix] 40 mg PO QDAY 09/19/19 09/19/19 09/19/19 Potassium Chloride [K-Dur] 20 meq PO BID 09/19/19 09/19/19 09/19/19 Torsemide [Demadex] 20 mg PO BID 09/19/19 09/19/19 09/19/19 dilTIAZem [Cardizem] 120 mg PO QDAY 09/19/19 09/19/19 09/19/19 metroNIDAZOLE 0.75% gel TOPICAL 0.75 applic NOTAPPLIC QDAY 09/19/19 09/19/19 09/18/19 oxyCODONE 10 mg PO QDAY 09/19/19 09/19/19 09/19/19 Allergies Allergy/AdvReac Type Severity Reaction Status Date / Time aspartame Allergy Severe Anaphylaxis Verified 06/16/18 17:41 aspirin Allergy Severe Swelling Verified 06/16/18 17:41 chocolate flavor Allergy Severe Shortness Verified 06/16/18 17:41 of Breath ciprofloxacin [From Cipro] Allergy Severe Shortness Verified 06/16/18 17:41 of Breath diazepam [From Valium] Allergy Severe Shortness Verified 06/16/18 17:41 of Breath fish derived Allergy Severe Anaphylaxis Verified 02/01/19 07:40 levofloxacin [From Levaquin] Allergy Severe Swelling Verified 06/16/18 17:41 Macrolide Antibiotics Allergy Severe Swelling Verified 06/16/18 17:41 midazolam HCl [From Versed] Allergy Severe Shortness Verified 06/16/18 17:41 of Breath monosodium glutamate Allergy Severe Swelling Verified 06/16/18 17:41 oxycodone HCl [From Percocet] Allergy Severe Swelling Verified 06/16/18 17:41 peach [[place]] Allergy Severe Swelling Verified 06/16/18 17:41 peanut Allergy Severe Swelling Verified 06/16/18 17:41 Phenothiazines Allergy Severe Swelling Verified 06/16/18 17:41 propoxyphene napsylate Allergy Severe Swelling Verified 06/16/18 17:41 [From Darvocet-N 100] shellfish derived Allergy Severe Anaphylaxis Verified 02/01/19 07:40 midazolam Allergy Intermediate Rash Verified 06/16/18 17:41 oxycodone [Oxycodone] Allergy Intermediate Rash Verified 06/16/18 17:41 promethazine Allergy Intermediate Nausea Verified 06/16/18 17:41 azithromycin [From Zithromax] Allergy Unknown Swelling Verified 02/01/19 07:37 Fish Containing Products Allergy Anaphylaxis Verified 06/16/18 17:41 fluticasone propionate Allergy Shortness Verified 06/16/18 17:41 [From Flonase] of Breath povidone-iodine Allergy Rash Verified 06/16/18 17:41 [From Betadine] Salicylates * [Salicylates] Allergy Swelling Verified 06/16/18 17:41 soap [From Betadine] Allergy Rash Verified 06/16/18 17:41 Sulfa (Sulfonamide Allergy Swelling Verified 06/16/18 17:41 Antibiotics) Tetracyclines Allergy Swelling Verified 06/16/18 17:41 tomato [Tomato] Allergy Swelling Verified 06/16/18 17:41 milk AdvReac Unknown Unknown Verified 02/01/19 07:42 acetaminophen AdvReac Swelling Verified 06/16/18 17:41 [From Darvocet-N 100] codeine AdvReac Nausea Verified 06/16/18 17:41 NSAIDS (Non-Steroidal AdvReac Nausea Verified 06/16/18 17:41 Anti-Inflamma propofol AdvReac Shortness Verified 06/16/18 17:41 of Breath all bread Allergy Swelling Uncoded 06/16/18 17:41 seafood Allergy Anaphylaxis Uncoded 06/16/18 17:41 citrus AdvReac Nausea Uncoded 06/16/18 17:41 dairy AdvReac Nausea Uncoded 06/16/18 17:41 oatmeal AdvReac Nausea Uncoded 06/16/18 17:41 Z-PACK AdvReac Unknown Uncoded 06/20/18 12:03 ED Review of Systems Constitutional: denies: chills, fever Eyes: denies: eye pain, eye discharge, vision change ENT: denies: ear pain, throat pain Respiratory: shortness of breath. denies: cough, wheezing Cardiovascular: denies: chest pain, palpitations Endocrine: no symptoms reported Gastrointestinal: denies: abdominal pain, nausea, diarrhea Genitourinary: denies: urgency, dysuria, discharge Musculoskeletal: denies: back pain, joint swelling, arthralgia Skin: denies: rash, lesions Neurological: denies: headache, weakness, paresthesias Psychiatric: denies: anxiety, depression Hematological/Lymphatic: denies: easy bleeding, easy bruising ED Past Medical Hx - Past Medical History Previous Medical History?: Yes Hx Hypertension: Yes Hx Heart Attack/AMI: No Hx Congestive Heart Failure: Yes Hx Diabetes: Yes Hx Deep Vein Thrombosis: No Hx Pulmonary Embolism: Yes Hx GERD: Yes Hx Liver Disease: Yes Hx Renal Disease: No Hx Arthritis: Yes Hx Seizures: Yes Hx Psychiatric Treatment: Yes (anxiety) Hx Asthma: Yes Hx COPD: Yes Hx Dementia: No Hx HIV: No Additional medical history: thoracic spine pain, t-12 burst fracture; PE - Surgical History Past Surgical History?: No Hx Pacemaker: No Hx Internal Defibrillator: No Hx Cholecystectomy: Yes Additional Surgical History: hysterectomy, umbilical hernia; hip replacement. IVC Filter in left groin 2013 - Social History Smoking Status: Former Smoker Substance Use Type: None - Medications Home Medications: Home Medications Medication Instructions Recorded Confirmed Last Taken Type ALBUTEROL NEB's [Proventil 0.083% 2.5 mg IH QDAY 09/19/19 09/19/19 09/19/19 History NEBS] Benazepril HCl [Lotensin] 5 mg PO BID 09/19/19 09/19/19 09/19/19 History Cyclobenzaprine [Flexeril] 10 mg PO QHS 09/19/19 09/19/19 09/18/19 History Fexofenadine HCl 180 mg PO QDAY 09/19/19 09/19/19 09/19/19 History Gabapentin [Neurontin] 100 mg PO BID 09/19/19 09/19/19 09/19/19 History Jody-Lanta Liquid 30 ml PO Q8H 12/07/2909/19/19 09/18/19 History Guaifenesin/Pseudoephedrne HCl 600 mg PO QDAY 09/19/19 09/19/19 09/18/19 History [Mucinex D ER 600-60 mg Tablet] LORazepam [Ativan] 0.5 mg PO BID 09/19/19 09/19/19 09/18/19 History Lacosamide [Vimpat] 50 mg PO Q12HR 09/19/19 09/19/19 09/19/19 History Linagliptin [Tradjenta] 5 mg PO QDAY 09/19/19 09/19/19 09/19/19 History Montelukast [Singulair] 10 mg PO QHS 09/19/19 09/19/19 09/18/19 History Morphine [Morphine TAB] 15 mg PO QDAY 09/19/19 09/19/19 09/18/19 History Multivit,Calc,Mins/Iron/Folic 1 tab PO QDAY 09/19/19 09/19/19 09/19/19 History [Thera M Plus Tablet] PARoxetine HCl [Paroxetine] 30 mg PO QDAY 09/19/19 09/19/19 09/19/19 History Pantoprazole Sodium [Protonix] 40 mg PO QDAY 09/19/19 09/19/19 09/19/19 History Potassium Chloride [K-Dur] 20 meq PO BID 09/19/19 09/19/19 09/19/19 History Torsemide [Demadex] 20 mg PO BID 09/19/19 09/19/19 09/19/19 History dilTIAZem [Cardizem] 120 mg PO QDAY 09/19/19 09/19/19 09/19/19 History metroNIDAZOLE 0.75% gel TOPICAL 0.75 applic NOTAPPLIC QDAY 09/19/19 09/19/19 09/18/19 History oxyCODONE 10 mg PO QDAY 09/19/19 09/19/19 09/19/19 History ED Physical Exam - General Limitations: No Limitations General appearance: alert, in no apparent distress - Head Head exam: Present: atraumatic, normocephalic - Eye Eye exam: Present: normal appearance, PERRL, EOMI - ENT ENT exam: Present: mucous membranes moist - Neck Neck exam: Present: normal inspection - Respiratory Respiratory exam: Present: decreased breath sounds. Absent: respiratory distress - Cardiovascular Cardiovascular Exam: Present: regular rate, normal rhythm. Absent: systolic murmur, diastolic murmur, rubs, gallop - GI/Abdominal GI/Abdominal exam: Present: soft, normal bowel sounds. Absent: distended, tenderness - Extremities Exam Extremities exam: Present: normal inspection - Back Exam Back exam: Present: normal inspection - Neurological Exam Neurological exam: Present: alert, oriented X3, CN II-XII intact. Absent: motor sensory deficit - Psychiatric Psychiatric exam: Present: normal affect, normal mood - Skin Skin exam: Present: warm, dry, intact, normal color. Absent: rash ED Medical Decision Making - Lab Data Result diagrams: 09/19/19 15:09/19/19 15:01 Lab Results 09/19/19 09/19/19 09/19/19 Range/Units 15:01 15:01 15:01 WBC 9.9 (4.5-11.0) K/mm3 RBC 4.86 (3.65-5.03) M/mm3 Hgb 15.1 H (10.1-14.3) gm/dl Hct 45.6 H (30.3-42.9) % MCV 94 (79-97) fl MCH 31 (28-32) pg MCHC 33 (30-34) % RDW 13.9 (13.2-15.2) % Plt Count 233 (140-440) K/mm3 Seg Neutrophils % Claims Collector PT (12.2-14.9) Sec. INR (0.87-1.13) APTT (24.2-36.6) Sec. Sodium 140 (137-145) mmol/L Potassium 3.9 (3.6-5.0) mmol/L Chloride 99.1 (98-107) mmol/L Carbon Dioxide 19 L (22-30) mmol/L Anion Gap 26 mmol/L BUN 15 (7-17) mg/dL Creatinine 0.9 (0.7-1.2) mg/dL Estimated GFR > 60 ml/min BUN/Creatinine Ratio 17 % Glucose 262 H (65-100) mg/dL Lactic Acid 6.00 H* (0.7-2.0) mmol/L Calcium 8.4 (8.4-10.2) mg/dL Total Bilirubin 0.40 (0.1-1.2) mg/dL AST 20 (5-40) units/L ALT 25 (7-56) units/L Alkaline Phosphatase 68 (35-129) units/L Troponin T (0.00-0.029) ng/mL NT-Pro-B Natriuret Pep (0-900) pg/mL Total Protein 6.0 L (6.3-8.2) g/dL Albumin 3.7 L (3.9-5) g/dL Albumin/Globulin Ratio 1.6 % Urine Color (Yellow) Urine Turbidity (Clear) Urine pH (5.0-7.0) Ur Specific [place] (1.003-1.030) Urine Protein (Negative) mg/dL Urine Glucose (UA) (Negative) mg/dL Urine Ketones (Negative) mg/dL Urine Blood (Negative) Urine Nitrite (Negative) Urine Bilirubin (Negative) Urine Urobilinogen (<2.0) mg/dL Ur Leukocyte Esterase (Negative) Urine WBC (Auto) (0.0-6.0) /HPF Urine RBC (Auto) (0.0-6.0) /HPF U Epithel Cells (Auto) (0-13.0) /HPF 09/19/19 09/19/19 09/19/19 Range/Units 15:01 15:01 15:01 WBC (4.5-11.0) K/mm3 RBC (3.65-5.03) M/mm3 Hgb (10.1-14.3) gm/dl Hct (30.3-42.9) % MCV (79-97) fl MCH (28-32) pg MCHC (30-34) % RDW (13.2-15.2) % Plt Count (140-440) K/mm3 Seg Neutrophils % PT 13.5 (12.2-14.9) Sec. INR 1.04 (0.87-1.13) APTT 21.4 L (24.2-36.6) Sec. Sodium (137-145) mmol/L Potassium (3.6-5.0) mmol/L Chloride (98-107) mmol/L Carbon Dioxide (22-30) mmol/L Anion Gap mmol/L BUN (7-17) mg/dL Creatinine (0.7-1.2) mg/dL Estimated GFR ml/min BUN/Creatinine Ratio % Glucose (65-100) mg/dL Lactic Acid (0.7-2.0) mmol/L Calcium (8.4-10.2) mg/dL Total Bilirubin (0.1-1.2) mg/dL AST (5-40) units/L ALT (7-56) units/L Alkaline Phosphatase (35-129) units/L Troponin T < 0.010 (0.00-0.029) ng/mL NT-Pro-B Natriuret Pep 110.3 (0-900) pg/mL Total Protein (6.3-8.2) g/dL Albumin (3.9-5) g/dL Albumin/Globulin Ratio % Urine Color (Yellow) Urine Turbidity (Clear) Urine pH (5.0-7.0) Ur Specific [place] (1.003-1.030) Urine Protein (Negative) mg/dL Urine Glucose (UA) (Negative) mg/dL Urine Ketones (Negative) mg/dL Urine Blood (Negative) Urine Nitrite (Negative) Urine Bilirubin (Negative) Urine Urobilinogen (<2.0) mg/dL Ur Leukocyte Esterase (Negative) Urine WBC (Auto) (0.0-6.0) /HPF Urine RBC (Auto) (0.0-6.0) /HPF U Epithel Cells (Auto) (0-13.0) /HPF 09/19/19 09/19/19 09/19/19 Range/Units 15:45 16:06 16:06 WBC (4.5-11.0) K/mm3 RBC (3.65-5.03) M/mm3 Hgb (10.1-14.3) gm/dl Hct (30.3-42.9) % MCV (79-97) fl MCH (28-32) pg MCHC (30-34) % RDW (13.2-15.2) % Plt Count (140-440) K/mm3 Seg Neutrophils % PT (12.2-14.9) Sec. INR (0.87-1.13) APTT (24.2-36.6) Sec. Sodium (137-145) mmol/L Potassium (3.6-5.0) mmol/L Chloride (98-107) mmol/L Carbon Dioxide (22-30) mmol/L Anion Gap mmol/L BUN (7-17) mg/dL Creatinine (0.7-1.2) mg/dL Estimated GFR ml/min BUN/Creatinine Ratio % Glucose (65-100) mg/dL Lactic Acid 5.90 H* (0.7-2.0) mmol/L Calcium (8.4-10.2) mg/dL Total Bilirubin (0.1-1.2) mg/dL AST (5-40) units/L ALT (7-56) units/L Alkaline Phosphatase (35-129) units/L Troponin T < 0.010 (0.00-0.029) ng/mL NT-Pro-B Natriuret Pep (0-900) pg/mL Total Protein (6.3-8.2) g/dL Albumin (3.9-5) g/dL Albumin/Globulin Ratio % Urine Color Straw (Yellow) Urine Turbidity Clear (Clear) Urine pH 7.0 (5.0-7.0) Ur Specific [place] 1.006 (1.003-1.030) Urine Protein <15 mg/dl (Negative) mg/dL Urine Glucose (UA) >=500 (Negative) mg/dL Urine Ketones Neg (Negative) mg/dL Urine Blood Neg (Negative) Urine Nitrite Neg (Negative) Urine Bilirubin Neg (Negative) Urine Urobilinogen < 2.0 (<2.0) mg/dL Ur Leukocyte Esterase Neg (Negative) Urine WBC (Auto) 1.0 (0.0-6.0) /HPF Urine RBC (Auto) 1.0 (0.0-6.0) /HPF U Epithel Cells (Auto) 1.0 (0-13.0) /HPF - EKG Data -: EKG Interpreted by Mn EKG shows normal: sinus rhythm Rate: normal - Radiology Data Radiology results: report reviewed ED Disposition Clinical Impression: COPD exacerbation, Lactic acidosis Disposition: DC-09 OP ADMIT IP TO THIS HOSP Condition: Stable Instructions: Chronic Bronchitis (ED) Referrals: PRIMARY CARE, [Primary Care Provider] - 3-5 Days <SILVANO LOONEY - Last Filed: 09/19/19 21:45> ED Review of Systems ROS: Stated complaint: CHEST PAIN/SHORTNESS OF BREATH Other details as noted in HPI ED Course Vital Signs 09/19/19 09/19/19 09/19/19 13:02 13:08 13:15 Temperature 98.4 F Pulse Rate 79 74 73 Pulse Rate [ Posterior Lower Lobe] Respiratory 16 18 17 Rate Respiratory Rate [Posterior Lower Lobe] Blood Pressure 135/46 Blood Pressure 141/56 [Left] O2 Sat by Pulse 97 Oximetry 09/19/19 09/19/19 09/19/19 13:31 13:45 14:01 Temperature Pulse Rate 72 70 67 Pulse Rate [ Posterior Lower Lobe] Respiratory 22 20 17 Rate Respiratory Rate [Posterior Lower Lobe] Blood Pressure 131/50 120/54 120/45 Blood Pressure [Left] O2 Sat by Pulse 95 95 96 Oximetry 09/19/19 09/19/19 09/19/19 14:15 14:31 14:45 Temperature Pulse Rate 89 87 75 Pulse Rate [ Posterior Lower Lobe] Respiratory 14 19 22 Rate Respiratory Rate [Posterior Lower Lobe] Blood Pressure 120/45 120/45 120/45 Blood Pressure [Left] O2 Sat by Pulse Oximetry 09/19/19 09/19/19 09/19/19 15:01 15:15 15:31 Temperature Pulse Rate 73 83 75 Pulse Rate [ Posterior Lower Lobe] Respiratory 22 21 20 Rate Respiratory Rate [Posterior Lower Lobe] Blood Pressure 120/45 120/45 120/45 Blood Pressure [Left] O2 Sat by Pulse Oximetry 09/19/19 09/19/19 09/19/19 16:13 16:29 16:31 Temperature Pulse Rate Pulse Rate [ 87 Posterior Lower Lobe] Respiratory 11 L 17 Rate Respiratory 17 Rate [Posterior Lower Lobe] Blood Pressure 120/45 120/45 Blood Pressure [Left] O2 Sat by Pulse 96 93 Oximetry 09/19/19 09/19/19 09/19/19 16:45 17:01 17:15 Temperature Pulse Rate Pulse Rate [ Posterior Lower Lobe] Respiratory 21 19 18 Rate Respiratory Rate [Posterior Lower Lobe] Blood Pressure 120/45 120/45 120/45 Blood Pressure [Left] O2 Sat by Pulse 92 93 94 Oximetry 09/19/19 09/19/19 09/19/19 17:31 18:39 18:45 Temperature Pulse Rate 107 H 103 H Pulse Rate [ Posterior Lower Lobe] Respiratory 19 18 16 Rate Respiratory Rate [Posterior Lower Lobe] Blood Pressure 120/45 120/45 120/45 Blood Pressure [Left] O2 Sat by Pulse 96 97 Oximetry 09/19/19 09/19/1919 19:01 19:15 19:30 Temperature 98.3 F Pulse Rate 94 H 90 84 Pulse Rate [ Posterior Lower Lobe] Respiratory 22 15 19 Rate Respiratory Rate [Posterior Lower Lobe] Blood Pressure 120/45 120/45 125/55 Blood Pressure 140/53 [Left] O2 Sat by Pulse 96 98 94 Oximetry 09/19/19 09/19/19 09/19/19 19:58 20:00 20:16 Temperature Pulse Rate 94 H 96 H 89 Pulse Rate [ Posterior Lower Lobe] Respiratory 14 20 26 H Rate Respiratory Rate [Posterior Lower Lobe] Blood Pressure 125/55 125/55 Blood Pressure [Left] O2 Sat by Pulse 96 96 98 Oximetry 09/19/19 20:30 Temperature Pulse Rate 79 Pulse Rate [ Posterior Lower Lobe] Respiratory 24 Rate Respiratory Rate [Posterior Lower Lobe] Blood Pressure 127/59 Blood Pressure [Left] O2 Sat by Pulse 94 Oximetry ED Medical Decision Making - Lab Data Result diagrams: 09/19/19 15:01 09/19/19 15:01 Critical care attestation.: If time is entered above; I have spent that time in minutes in the direct care of this critically ill patient, excluding procedure time. ED Disposition Is pt being admited?: Yes
--- NOTE | 2019-09-19 18:31 | Nuclear Medicine Report ---
NM lung scan perf/vent INDICATION / CLINICAL INFORMATION: sob with chest pain. TECHNIQUE: Dose / Agent / Route: 5.3mCi technetium 99m MAA IV 7.8mCi xenon-133 inhaled gas. COMPARISON: 09/17/2019 chest x-ray FINDINGS: There are no segmental or subsegmental perfusion defects. Ventilation images show mild air trapping i n the right lung. IMPRESSION: 1. Low probability for pulmonary embolism Signer Name: Eliazar Goldberg MD Signed: 09/19/2019 6:27 PM Workstation Name: [id number]
[2019-09-19 19:14] LABS: Basophils % (Manual) 0 % (0.0-1.8); Eosinophils % (Manual) 0 % (0.0-4.3); Platelet Estimate Consistent w Auto; RBC Morphology Normal; Total Cells Counted 100
--- NOTE | 2019-09-19 20:52 | Cat Scan Report ---
CT chest wo con INDICATION / CLINICAL INFORMATION: sob with cough. TECHNIQUE: All CT scans at this location are performed using CT dose reduction for ALARA by means of automated e xposure control. COMPARISON: None available. FINDINGS: No mediastinal adenopathy or cardiac enlargement. Basilar atelectasis bilaterally. No acute interstitial or airspace pulmonary disease. Limited upper abdominal images are remarkable for the presence of an inferior vena caval filter. There are multiple thoracic compression deformities and vertebroplasty at 2 levels. Multiple right rib fractures. IMPRESSION: 1. No acute findings. Signer Name: Eliazar Goldberg MD Signed: 09/19/2019 8:48 PM Workstation Name: [id number]
[2019-09-19] MEDS ORDERED: ONDANSETRON 4 MG/2 ML INJ IV PRN (22:37)
[2019-09-19] MEDS ORDERED: MAGNESIUM HYDROXIDE (MOM) ORAL LIQD UDC PO PRN (22:37)
[2019-09-19] MEDS ORDERED: DEXTROSE 50% IN WATER (25GM) 50 ML SYRINGE IV PRN (22:37)
[2019-09-19] MEDS ORDERED: ACETAMINOPHEN 325 MG TAB PO PRN (22:37)
[2019-09-19] MEDS ORDERED: oxyCODONE 5 MG TAB PO ONE (22:54)
[2019-09-19] MEDS: SODIUM CHLORIDE 0.9% 1000 ML 1,000 ML IV SCH (23:05)
[2019-09-19] MEDS ORDERED: methylPREDNISolone Sod Succinate 40 MG/1 ML INJ ONE (23:54)
[2019-09-19] MEDS: methylPREDNISolone Sod Succinate 40 MG/1 ML INJ IV SCH (23:54)
[2019-09-20] MEDS: methylPREDNISolone Sod Succinate 40 MG/1 ML INJ IV SCH ×5 (00:01→23:29)
--- NOTE | 2019-09-20 00:33 | History and Physical Report ---
History of Present Illness Date of examination: 09/19/19 Date of admission: 09/19/19 22:41 Chief complaint: Shortness of breath History of present illness: Patient is a 64-year-old female presenting to the emergency room complaining of shortness of breath and some chest pain. She has also had some cough which is nonproductive. She was recently diagnosed with pneumonia about 6 weeks ago and was treated with antibiotics. 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 Work-up in the emergency room today including chest x-ray and CT of the chest were unremarkable however she had an elevated lactic acid of about 6. Patient indicates that she has history of COPD and she has not been able to catch her breath over the past few days. She had been given some nebulizing treatments and IV antibiotics in the ER. Past History Past Medical History: COPD, diabetes Past Surgical History: cholecystectomy, Other (IVC filter placement, hernia surgery, right hip surgery, sinus surgery, left eye tumor removal) Family history: cancer (Breast cancer in the family), other (Heart disease) Medications and Allergies Allergies Allergy/AdvReac Type Severity Reaction Status Date / Time aspartame Allergy Severe Anaphylaxis Verified 06/16/18 17:41 aspirin Allergy Severe Swelling Verified 06/16/18 17:41 chocolate flavor Allergy Severe Shortness Verified 06/16/18 17:41 of Breath ciprofloxacin [From Cipro] Allergy Severe Shortness Verified 06/16/18 17:41 of Breath diazepam [From Valium] Allergy Severe Shortness Verified 06/16/18 17:41 of Breath fish derived Allergy Severe Anaphylaxis Verified 02/01/19 07:40 levofloxacin [From Levaquin] Allergy Severe Swelling Verified 06/16/18 17:41 Macrolide Antibiotics Allergy Severe Swelling Verified 06/16/18 17:41 midazolam HCl [From Versed] Allergy Severe Shortness Verified 06/16/18 17:41 of Breath monosodium glutamate Allergy Severe Swelling Verified 06/16/18 17:41 oxycodone HCl [From Percocet] Allergy Severe Swelling Verified 06/16/18 17:41 peach [Toole] Allergy Severe Swelling Verified 06/16/18 17:41 peanut Allergy Severe Swelling Verified 06/16/18 17:41 Phenothiazines Allergy Severe Swelling Verified 06/16/18 17:41 propoxyphene napsylate Allergy Severe Swelling Verified 06/16/18 17:41 [From Darvocet-N 100] shellfish derived Allergy Severe Anaphylaxis Verified 02/01/19 07:40 midazolam Allergy Intermediate Rash Verified 06/16/18 17:41 oxycodone [Oxycodone] Allergy Intermediate Rash Verified 06/16/18 17:41 promethazine Allergy Intermediate Nausea Verified 06/16/18 17:41 azithromycin [From Zithromax] Allergy Unknown Swelling Verified 02/01/19 07:37 albuterol [From DuoNeb] Allergy Unknown Verified 09/20/19 01:12 hahn Allergy Unknown Verified 09/20/19 01:03 cucumber Allergy Unknown Verified 09/20/19 00:59 Fish Containing Products Allergy Anaphylaxis Verified 06/16/18 17:41 fluticasone propionate Allergy Shortness Verified 06/16/18 17:41 [From Flonase] of Breath ipratropium [From DuoNeb] Allergy Unknown Verified 09/20/19 01:12 metoclopramide [From Reglan] Allergy Unknown Verified 09/20/19 01:12 metronidazole [From Flagyl] Allergy Unknown Verified 09/20/19 01:12 povidone-iodine Allergy Rash Verified 06/16/18 17:41 [From Betadine] Salicylates * [Salicylates] Allergy Swelling Verified 06/16/18 17:41 soap [From Betadine] Allergy Rash Verified 06/16/18 17:41 soap [From Betadine] Allergy Unknown Verified 09/20/19 01:06 strawberry Allergy Unknown Verified 09/20/19 01:02 Sulfa (Sulfonamide Allergy Swelling Verified 06/16/18 17:41 Antibiotics) temazepam [From Restoril] Allergy Unknown Verified 09/20/19 01:12 Tetracyclines Allergy Swelling Verified 06/16/18 17:41 tomato [Tomato] Allergy Swelling Verified 06/16/18 17:41 tramadol [From Ultram] Allergy Unknown Verified 09/20/19 01:12 turkey Allergy Unknown Verified 09/20/19 01:03 warfarin [From Coumadin] Allergy Unknown Verified 09/20/19 01:12 milk AdvReac Unknown Unknown Verified 02/01/19 07:42 acetaminophen AdvReac Swelling Verified 06/16/18 17:41 [From Darvocet-N 100] codeine AdvReac Nausea Verified 06/16/18 17:41 NSAIDS (Non-Steroidal AdvReac Nausea Verified 06/16/18 17:41 Anti-Inflamma propofol AdvReac Shortness Verified 06/16/18 17:41 of Breath all bread Allergy Swelling Uncoded 06/16/18 17:41 seafood Allergy Anaphylaxis Uncoded 06/16/18 17:41 citrus AdvReac Nausea Uncoded 06/16/18 17:41 dairy AdvReac Nausea Uncoded 06/16/18 17:41 oatmeal AdvReac Nausea Uncoded 06/16/18 17:41 Z-PACK AdvReac Unknown Uncoded 06/20/18 12:03 Home Medications Medication Instructions Recorded Confirmed Last Taken Type ALBUTEROL NEB's [Proventil 0.083% 2.5 mg IH QDAY 09/19/19 09/19/19 09/19/19 History NEBS] Benazepril HCl [Lotensin] 5 mg PO BID 09/19/19 09/19/19 09/19/19 History Cyclobenzaprine [Flexeril] 10 mg PO QHS 09/19/19 09/19/19 09/18/19 History Fexofenadine HCl 180 mg PO QDAY 09/19/19 09/19/19 09/19/19 History Gabapentin [Neurontin] 100 mg PO BID 09/19/19 09/19/19 09/19/19 History Jody-Lanta Liquid 30 ml PO Q8H 09/19/19 09/19/19 09/18/19 History Guaifenesin/Pseudoephedrne HCl 600 mg PO QDAY 09/19/19 09/19/19 09/18/19 History [Mucinex D ER 600-60 mg Tablet] LORazepam [Ativan] 0.5 mg PO BID 09/19/19 09/19/19 09/18/19 History Lacosamide [Vimpat] 50 mg PO Q12HR 09/19/19 09/19/19 09/19/19 History Linagliptin [Tradjenta] 5 mg PO QDAY 09/19/19 09/19/19 09/19/19 History Montelukast [Singulair] 10 mg PO QHS 09/19/19 09/19/19 09/18/19 History Morphine [Morphine TAB] 15 mg PO QDAY 09/19/19 09/19/19 09/18/19 History Multivit,Calc,Mins/Iron/Folic 1 tab PO QDAY 09/19/19 09/19/19 09/19/19 History [Thera M Plus Tablet] PARoxetine HCl [Paroxetine] 30 mg PO QDAY 09/19/19 09/19/19 09/19/19 History Pantoprazole Sodium [Protonix] 40 mg PO QDAY 09/19/19 09/19/19 09/19/19 History Potassium Chloride [K-Dur] 20 meq PO BID 09/19/19 09/19/19 09/19/19 History Torsemide [Demadex] 20 mg PO BID 09/19/19 09/19/19 09/19/19 History dilTIAZem [Cardizem] 120 mg PO QDAY 09/19/19 09/19/19 09/19/19 History metroNIDAZOLE 0.75% gel TOPICAL 0.75 applic NOTAPPLIC QDAY 09/19/19 09/19/19 09/18/19 History oxyCODONE 10 mg PO QDAY 09/19/19 09/19/19 09/19/19 History Active Meds: Active Medications Acetaminophen (Tylenol) 650 mg PO Q4H PRN PRN Reason: Pain MILD(1-3)/Fever >100.5/[place] Albuterol/Ipratropium (Duoneb *Not For Prn Use*) 1 ampul IH Q6HRT [facility] Dextrose (D50w (25gm) Syringe) 50 ml IV Q30MIN PRN; Protocol PRN Reason: Hypoglycemia Sodium Chloride (Nacl 0.9% 1000 Ml) 1,000 mls @ 75 mls/hr IV DIRECT AMY Last Admin: 09/19/19 23:05 Dose: 75 mls/hr Documented by: Cefepime HCl (Cefepime/Ns 2 Gm/100 Ml) 2 gm in 100 mls @ 200 mls/hr IV Q8HR AMY; Protocol Vancomycin HCl 2,000 mg/ (Sodium Chloride) 540 mls @ 250 mls/hr IV ONCE ONE Stop: 09/20/19 03:09 Levofloxacin/Dextrose (Levaquin 750mg/150ml) 750 mg in 150 mls @ 100 mls/hr IV Q24HR AMY; Protocol Insulin Human Regular (Humulin R) 0 units SUB-Q ACHS AMY; Protocol Magnesium Hydroxide (Milk Of Magnesia) 30 ml PO Q4H PRN PRN Reason: Constipation Methylprednisolone Sodium Succinate (Solu-Medrol) 40 mg IV Q6HR AMY Last Admin: 09/20/19 00:01 Dose: 40 mg Documented by: Ondansetron HCl (Zofran) 4 mg IV Q8H PRN PRN Reason: Nausea And Vomiting Sodium Chloride (Sodium Chloride Flush Syringe 10 Ml) 10 ml IV BID AMY Sodium Chloride (Sodium Chloride Flush Syringe 10 Ml) 10 ml IV PRN PRN PRN Reason: LINE FLUSH Last Admin: 09/19/19 23:00 Dose: 10 ml Documented by: Review of Systems Respiratory: cough, shortness of breath Exam - Constitutional Vitals: Temp Pulse Resp BP Pulse Ox 98.3 F 75 21 130/51 94 09/19/19 19:15 09/19/19 23:30 09/19/19 23:30 09/19/19 23:30 09/19/19 23:30 General appearance: Present: no acute distress, obese - EENT Eyes: Present: PERRL, EOM intact ENT: hearing intact, clear oral mucosa, dentition normal - Neck Neck: Present: supple, normal ROM - Respiratory Respiratory effort: normal Respiratory: bilateral: diminished - Cardiovascular Rhythm: regular Heart Sounds: Present: S1 & S2 - Extremities Extremities: no ischemia, pulses intact, No edema Peripheral Pulses: within normal limits - Abdominal General gastrointestinal: Present: soft, non-tender, non-distended - Integumentary Integumentary: Present: clear, warm, dry - Musculoskeletal Musculoskeletal: strength equal bilaterally - Psychiatric Psychiatric: appropriate mood/affect, intact judgment & insight, cooperative - Neurologic Neurologic: CNII-XII intact, moves all extremities Results - Labs CBC & Chem 7: 09/20/19 05:14 09/20/19 05:14 Labs: Abnormal lab results 09/19/19 09/19/19 09/19/19 Range/Units 15:01 15:01 15:01 Hgb 15.1 H (10.1-14.3) gm/dl Hct 45.6 H (30.3-42.9) % Seg Neuts % (Manual) 96.0 H (40.0-70.0) % Lymphocytes % (Manual) 3.0 L (13.4-35.0) % Seg Neutrophils # Man 9.5 H (1.8-7.7) K/mm3 Lymphocytes # (Manual) 0.3 L (1.2-5.4) K/mm3 APTT (24.2-36.6) Sec. POC ABG pH (7.35-7.45) POC ABG pCO2 (35-45) POC ABG pO2 (80-105) Carbon Dioxide 19 L (22-30) mmol/L Glucose 262 H (65-100) mg/dL Lactic Acid 6.00 H* (0.7-2.0) mmol/L Total Protein 6.0 L (6.3-8.2) g/dL Albumin 3.7 L (3.9-5) g/dL 09/19/19 09/19/19 09/19/19 Range/Units 15:01 16:06 18:58 Hgb (10.1-14.3) gm/dl Hct (30.3-42.9) % Seg Neuts % (Manual) (40.0-70.0) % Lymphocytes % (Manual) (13.4-35.0) % Seg Neutrophils # Man (1.8-7.7) K/mm3 Lymphocytes # (Manual) (1.2-5.4) K/mm3 APTT 21.4 L (24.2-36.6) Sec. POC ABG pH (7.35-7.45) POC ABG pCO2 (35-45) POC ABG pO2 (80-105) Carbon Dioxide (22-30) mmol/L Glucose (65-100) mg/dL Lactic Acid 5.90 H* 5.90 H* (0.7-2.0) mmol/L Total Protein (6.3-8.2) g/dL Albumin (3.9-5) g/dL 09/19/19 09/19/19 Range/Units 19:23 23:03 Hgb (10.1-14.3) gm/dl Hct (30.3-42.9) % Seg Neuts % (Manual) (40.0-70.0) % Lymphocytes % (Manual) (13.4-35.0) % Seg Neutrophils # Man (1.8-7.7) K/mm3 Lymphocytes # (Manual) (1.2-5.4) K/mm3 APTT (24.2-36.6) Sec. POC ABG pH 7.467 H (7.35-7.45) POC ABG pCO2 32.1 L (35-45) POC ABG pO2 79 L (80-105) Carbon Dioxide (22-30) mmol/L Glucose (65-100) mg/dL Lactic Acid 6.50 H* (0.7-2.0) mmol/L Total Protein (6.3-8.2) g/dL Albumin (3.9-5) g/dL Assessment and Plan - Patient Problems (1) Pneumonia Current Visit: Yes Status: Acute Plan to address problem: Patient was started on empiric IV antibiotics. Will await blood culture results. (2) COPD exacerbation Current Visit: Yes Status: Acute Plan to address problem: She is placed on nebulizing treatment and IV steroids. We will keep O2 saturation greater or equal to 92%. (3) Lactic acidosis Current Visit: Yes Status: Acute Plan to address problem: We will continue patient on IV fluid and antibiotics. Will monitor lactic acid level. (4) HTN (hypertension) Current Visit: No Status: Chronic Qualifiers: Hypertension type: essential hypertension Qualified Code(s): I10 - Essential (primary) hypertension Plan to address problem: Blood pressure stable. We will continue routine home medication. (5) GINNA on CPAP Current Visit: No Status: Chronic Plan to address problem: Patient uses CPAP at home. (6) DVT prophylaxis Current Visit: No Status: Acute Plan to address problem: She has been placed on subcutaneous heparin. (7) Full code status Current Visit: Yes Status: Acute
[2019-09-20] MEDS ORDERED: VANCOMYCIN 2,000 MG in SODIUM CHLORIDE 0.9% 500 ML 500 ML IV ONE (01:00)
[2019-09-20] MEDS ORDERED: VANCOMYCIN PHARMACY TO DOSE IV SCH (01:00)
[2019-09-20] MEDS: SODIUM CHLORIDE 0.9% 1000 ML 1,000 ML IV SCH ×2 (01:38→17:25)
[2019-09-20] MEDS ORDERED: IPRATROPIUM/ALBUTEROL SULFATE 3 ML AMPUL.NEB IH SCH (02:00)
[2019-09-20] MEDS ORDERED: oxyCODONE 5 MG TAB PO PRN ×3 (04:50→04:55)
[2019-09-20] MEDS: CEFEPIME/NS 2 GM/100 ML 2 GM/100 ML BAG IV SCH ×3 (05:24→22:48)
[2019-09-20 05:47] LABS: Hematocrit 42.1 % (30.3-42.9); Mean Corpuscular HGB Conc 33 % (30-34); Mean Corpuscular Volume 93 fl (79-97); Platelet Count 228 K/mm3 (140-440); Red Blood Count 4.52 M/mm3 (3.65-5.03); Red Cell Distribution Width 13.7 % (13.2-15.2)
[2019-09-20 05:58] LABS: INR 1.11 (0.87-1.13)
[2019-09-20 06:00] LABS: Partial Thromboplastin Time 25.5 Sec. (24.2-36.6)
[2019-09-20 06:12] LABS: BUN/Creatinine Ratio 16; Blood Urea Nitrogen 13 mg/dL (7-17); Calcium 8.2 mg/dL (8.4-10.2); Hemolysis Index 3
[2019-09-20 07:02] LABS: Basophils % (Manual) 0 % (0.0-1.8); Eosinophils % (Manual) 0 % (0.0-4.3); Platelet Estimate Consistent w Auto; RBC Morphology Normal; Total Cells Counted 100
[2019-09-20] MEDS: ALBUTEROL 2.5 MG/3 ML NEBU IH SCH ×4 (07:33→17:50)
[2019-09-20] MEDS: INSULIN REGULAR, HUMAN 100 UNITS/1 ML SUB-Q SCH ×4 (09:34→22:49)
[2019-09-20] MEDS ORDERED: OXYCODONE 10 MG PO PRN (12:43)
[2019-09-20] MEDS ORDERED: [UNRECOGNIZED DRUG - OTHER] PO PRN (12:43)
[2019-09-20] MEDS ORDERED: MAG HYDROX PO PRN (12:43)
[2019-09-20] MEDS ORDERED: SIMETH PO PRN (12:43)
[2019-09-20] MEDS ORDERED: ALUMINUM HYD PO PRN (12:43)
[2019-09-20] MEDS ORDERED: GERI LANTA PO PRN (12:43)
[2019-09-20] MEDS ORDERED: NON-FORMULARY EACH (Pantoprazole Sodium [Protonix] 40 MG) PO SCH (12:45)
[2019-09-20] MEDS ORDERED: PAROXETINE HCL 30 MG PO SCH (12:45)
[2019-09-20] MEDS ORDERED: [UNRECOGNIZED DRUG - OTHER] PO SCH (12:45)
[2019-09-20] MEDS ORDERED: MAGNESIUM HYDROXIDE PO SCH (12:45)
[2019-09-20] MEDS ORDERED: SPORTSCREME NOTAPPLIC SCH (12:45)
[2019-09-20] MEDS ORDERED: NON-FORMULARY EACH (Torsemide [Demadex] 20 MG) PO SCH (12:45)
--- NOTE | 2019-09-20 12:52 | Event Note ---
Date: 09/20/19 Patient presents with shortness of breath. I have seen and examined her. Consult Pulm.
[2019-09-20] MEDS ORDERED: CALCIUM 600 MG PO SCH (13:00)
[2019-09-20] MEDS ORDERED: BENAZEPRIL HCL 5 MG PO SCH (13:00)
[2019-09-20] MEDS: HEPARIN 5,000 UNIT/1 ML VIAL SUB-Q SCH ×2 (13:07→22:34)
[2019-09-20] MEDS: VANCOMYCIN/NS 1 GM/250 ML 1 GM/250 ML BAG IV SCH (13:08)
[2019-09-20] MEDS ORDERED: ALUM-MAG HYDROXIDE-SIMETHICONE 200-200-20MG/5ML ORAL LIQD 30 ML PO PRN ×2 (13:25→14:00)
[2019-09-20] MEDS: oxyCODONE 5 MG TAB PO PRN ×3 (13:57→20:00)
[2019-09-20] MEDS: LORATADINE (NF) 10 MG TAB PO SCH (14:00)
[2019-09-20] MEDS ORDERED: VANCOMYCIN 1,500 MG in SODIUM CHLORIDE 0.9% 500 ML 500 ML IV SCH (14:00)
[2019-09-20] MEDS: MAGNESIUM HYDROXIDE (MOM) ORAL LIQD UDC PO SCH (14:00)
[2019-09-20] MEDS ORDERED: CALCIUM CARBONATE 648 MG TAB PO SCH (14:00)
[2019-09-20] MEDS: LACOSAMIDE 50 MG TAB PO SCH ×2 (14:00→22:49)
[2019-09-20] MEDS: MULTIVITAMINS,THER W-MINERALS TAB PO SCH (14:00)
[2019-09-20] MEDS: GABAPENTIN 100 MG CAP PO SCH ×2 (14:00→22:33)
[2019-09-20] MEDS: PANTOPRAZOLE 40 MG TAB PO SCH (14:00)
[2019-09-20] MEDS: guaiFENesin ER 600 MG TAB PO SCH (14:00)
[2019-09-20] MEDS: LISINOPRIL 5 MG TAB PO SCH (14:01)
[2019-09-20] MEDS: TORSEMIDE 10 MG TAB PO SCH ×2 (14:01→20:00)
[2019-09-20] MEDS: LORazepam 0.5 MG TAB PO SCH ×2 (14:08→22:33)
[2019-09-20] MEDS: dilTIAZem CD 120 MG CAP PO SCH (16:24)
[2019-09-20] MEDS: LINAGLIPTIN 5 MG TAB PO SCH (16:24)
[2019-09-20] MEDS: CALCIUM CARBONATE 1250 MG TAB PO SCH (16:26)
[2019-09-20] MEDS: PARoxetine 10 MG TAB PO SCH (16:26)
[2019-09-20] MEDS: PSEUDOEPHEDRINE 30 MG TAB PO SCH (17:19)
--- NOTE | 2019-09-20 17:27 | Consultation ---
History of Present Illness Consult date: 09/20/19 Requesting physician: GUS SETHI Reason for consult: dyspnea, COPD Past History Past Medical History: COPD, diabetes Past Surgical History: cholecystectomy, Other (IVC filter placement, hernia surgery, right hip surgery, sinus surgery, left eye tumor removal) Family history: cancer (Breast cancer in the family), other (Heart disease) Medications and Allergies Allergies Allergy/AdvReac Type Severity Reaction Status Date / Time aspartame Allergy Severe Anaphylaxis Verified 06/16/18 17:41 aspirin Allergy Severe Swelling Verified 06/16/18 17:41 chocolate flavor Allergy Severe Shortness Verified 06/16/18 17:41 of Breath ciprofloxacin [From Cipro] Allergy Severe Shortness Verified 06/16/18 17:41 of Breath diazepam [From Valium] Allergy Severe Shortness Verified 06/16/18 17:41 of Breath fish derived Allergy Severe Anaphylaxis Verified 02/01/19 07:40 levofloxacin [From Levaquin] Allergy Severe Swelling Verified 06/16/18 17:41 Macrolide Antibiotics Allergy Severe Swelling Verified 06/16/18 17:41 midazolam HCl [From Versed] Allergy Severe Shortness Verified 06/16/18 17:41 of Breath monosodium glutamate Allergy Severe Swelling Verified 06/16/18 17:41 oxycodone HCl [From Percocet] Allergy Severe Swelling Verified 06/16/18 17:41 peach [Glenn] Allergy Severe Swelling Verified 06/16/18 17:41 peanut Allergy Severe Swelling Verified 06/16/18 17:41 Phenothiazines Allergy Severe Swelling Verified 06/16/18 17:41 propoxyphene napsylate Allergy Severe Swelling Verified 06/16/18 17:41 [From Darvocet-N 100] shellfish derived Allergy Severe Anaphylaxis Verified 02/01/19 07:40 midazolam Allergy Intermediate Rash Verified 06/16/18 17:41 oxycodone [Oxycodone] Allergy Intermediate Rash Verified 06/16/18 17:41 promethazine Allergy Intermediate Nausea Verified 06/16/18 17:41 azithromycin [From Zithromax] Allergy Unknown Swelling Verified 02/01/19 07:37 albuterol [From DuoNeb] Allergy Unknown Verified 09/20/19 01:12 hahn Allergy Unknown Verified 09/20/19 01:03 cucumber Allergy Unknown Verified 09/20/19 00:59 Fish Containing Products Allergy Anaphylaxis Verified 06/16/18 17:41 fluticasone propionate Allergy Shortness Verified 06/16/18 17:41 [From Flonase] of Breath ipratropium [From DuoNeb] Allergy Unknown Verified 09/20/19 01:12 metoclopramide [From Reglan] Allergy Unknown Verified 09/20/19 01:12 metronidazole [From Flagyl] Allergy Unknown Verified 09/20/19 01:12 povidone-iodine Allergy Rash Verified 06/16/18 17:41 [From Betadine] Salicylates * [Salicylates] Allergy Swelling Verified 06/16/18 17:41 soap [From Betadine] Allergy Rash Verified 06/16/18 17:41 soap [From Betadine] Allergy Unknown Verified 09/20/19 01:06 strawberry Allergy Unknown Verified 09/20/19 01:02 Sulfa (Sulfonamide Allergy Swelling Verified 06/16/18 17:41 Antibiotics) temazepam [From Restoril] Allergy Unknown Verified 09/20/19 01:12 Tetracyclines Allergy Swelling Verified 06/16/18 17:41 tomato [Tomato] Allergy Swelling Verified 06/16/18 17:41 tramadol [From Ultram] Allergy Unknown Verified 09/20/19 01:12 turkey Allergy Unknown Verified 09/20/19 01:03 warfarin [From Coumadin] Allergy Unknown Verified 09/20/19 01:12 milk AdvReac Unknown Unknown Verified 02/01/19 07:42 acetaminophen AdvReac Swelling Verified 06/16/18 17:41 [From Darvocet-N 100] codeine AdvReac Nausea Verified 06/16/18 17:41 NSAIDS (Non-Steroidal AdvReac Nausea Verified 06/16/18 17:41 Anti-Inflamma propofol AdvReac Shortness Verified 06/16/18 17:41 of Breath all bread Allergy Swelling Uncoded 09/20/19 08:21 seafood Allergy Anaphylaxis Uncoded 06/16/18 17:41 citrus AdvReac Nausea Uncoded 06/16/18 17:41 dairy AdvReac Nausea Uncoded 06/16/18 17:41 oatmeal AdvReac Nausea Uncoded 06/16/18 17:41 Z-PACK AdvReac Unknown Uncoded 06/20/18 12:03 Home Medications Medication Instructions Recorded Confirmed Last Taken Type ALBUTEROL NEB's [Proventil 0.083% 2.5 mg IH QID 09/19/19 09/20/19 09/19/19 History NEBS] Benazepril HCl [Lotensin] 5 mg PO DAILY 09/19/19 09/20/19 09/19/19 History Cyclobenzaprine [Flexeril] 10 mg PO QHS 09/19/19 09/19/19 09/18/19 History Fexofenadine HCl 180 mg PO QDAY 09/19/19 09/19/19 09/19/19 History Gabapentin [Neurontin] 100 mg PO BID 09/19/19 09/19/19 09/19/19 History Jody-Lanta Liquid 30 ml PO Q8H PRN 09/19/19 09/19/19 09/18/19 History Guaifenesin/Pseudoephedrne HCl 600 mg PO QDAY 09/19/19 09/19/19 09/18/19 History [Mucinex D ER 600-60 mg Tablet] LORazepam [Ativan] 0.5 mg PO BID 09/19/19 09/19/19 09/18/19 History Lacosamide [Vimpat] 50 mg PO Q12HR 09/19/19 09/19/19 09/19/19 History Linagliptin [Tradjenta] 5 mg PO QDAY 09/19/19 09/19/19 09/19/19 History Montelukast [Singulair] 10 mg PO QHS 09/19/19 09/19/19 09/18/19 History Morphine [Morphine TAB] 15 mg PO QHS 09/19/19 09/20/19 09/18/19 History Multivit,Calc,Mins/Iron/Folic 1 tab PO QDAY 09/19/19 09/19/19 09/19/19 History [Thera M Plus Tablet] PARoxetine HCl [Paroxetine] 30 mg PO QDAY 09/19/19 09/19/19 09/19/19 History Pantoprazole Sodium [Protonix] 40 mg PO QDAY 09/19/19 09/19/19 09/19/19 History Potassium Chloride [K-Dur] 20 meq PO BID 09/19/19 09/19/19 09/19/19 History Torsemide [Demadex] 20 mg PO BID 09/19/19 09/19/19 09/19/19 History dilTIAZem [Cardizem] 120 mg PO QDAY 09/19/19 09/19/19 09/19/19 History metroNIDAZOLE 0.75% gel TOPICAL 0.75 applic NOTAPPLIC QHS 09/19/19 09/20/19 09/18/19 History oxyCODONE 10 mg PO Q6HR PRN 09/19/19 09/20/19 09/19/19 History Calcium 600MG TAB 1 tab PO DAILY 09/20/19 09/20/19 09/19/19 History Mag Hydrox/Aluminum Hyd/Simeth 355 ml PO Q6HR PRN 09/20/19 09/20/19 09/18/19 History [Mylanta Maximum Strength Liq] Ondansetron [Zofran TAB] 4 mg PO Q8HR PRN 09/20/19 09/20/19 09/18/19 History Vivas' Milk of Magnesia 1 oralsyr PO DAILY 09/20/19 09/20/19 09/16/19 History Sportscreme 1 applic NOTAPPLIC BID 09/20/19 09/20/19 09/18/19 History Active Meds: Active Medications Acetaminophen (Tylenol) 650 mg PO Q4H PRN PRN Reason: Pain MILD(1-3)/Fever >100.5/[place] Al Hydrox/Mg Hydrox/Simethicone (Alum-Mag Hydrox-Simeth [phone]/5ml) 30 ml PO Q6H PRN PRN Reason: Indigestion Albuterol (Proventil) 2.5 mg IH QIDRT PRN PRN Reason: Dyspnea Arformoterol Tartrate (Brovana Nebu) 15 mcg IH Q12HRT [facility] Budesonide (Pulmicort) 0.5 mg IH Q12HRT [facility] Calcium Carbonate/Glycine (Oscal) 1,250 mg PO DAILY [facility] Last Admin: 09/20/19 16:26 Dose: 1,250 mg Documented by: Cyclobenzaprine HCl (Flexeril) 10 mg PO QHS [facility] Dextrose (D50w (25gm) Syringe) 50 ml IV Q30MIN PRN; Protocol PRN Reason: Hypoglycemia Diltiazem HCl (Cardizem Cd) 120 mg PO QDAY [facility] Last Admin: 09/20/19 16:24 Dose: 120 mg Documented by: Gabapentin (Gabapentin) 100 mg PO BID [facility] Last Admin: 09/20/19 14:00 Dose: 100 mg Documented by: Guaifenesin (Mucinex Er) 600 mg PO DAILY [facility] Last Admin: 09/20/19 14:00 Dose: 600 mg Documented by: Heparin Sodium (Porcine) (Heparin) 5,000 unit SUB-Q Q8HR [facility] Last Admin: 09/20/19 13:07 Dose: 5,000 unit Documented by: Sodium Chloride (Nacl 0.9% 1000 Ml) 1,000 mls @ 75 mls/hr IV DIRECT [facility] Last Admin: 09/20/19 01:38 Dose: 75 mls/hr Documented by: Cefepime HCl (Cefepime/Ns 2 Gm/100 Ml) 2 gm in 100 mls @ 200 mls/hr IV Q8HR [facility]; Protocol Last Admin: 09/20/19 13:08 Dose: 200 mls/hr Documented by: Vancomycin HCl (Vancomycin/Ns 1 Gm/250 Ml) 1 gm in 250 mls @ 167.007 mls/hr IV Q12H [facility] Last Admin: 09/20/19 13:08 Dose: 167.007 mls/hr Documented by: Insulin Human Regular (Humulin R) 0 units SUB-Q ACHS [facility]; Protocol Last Admin: 09/20/19 17:20 Dose: 3 units Documented by: Lacosamide (Vimpat) 50 mg PO Q12HR [facility] Last Admin: 09/20/19 14:00 Dose: 50 mg Documented by: Linagliptin (Tradjenta) 5 mg PO QDAY [facility] Last Admin: 09/20/19 16:24 Dose: 5 mg Documented by: Lisinopril (Zestril) 5 mg PO QDAY [facility] Last Admin: 09/20/19 14:01 Dose: 5 mg Documented by: Loratadine (Claritin) 10 mg PO DAILY [facility] Last Admin: 09/20/19 14:00 Dose: 10 mg Documented by: Lorazepam (Ativan) 0.5 mg PO BID [facility] Last Admin: 09/20/19 14:08 Dose: 0.5 mg Documented by: Magnesium Hydroxide (Milk Of Magnesia) 30 ml PO Q4H PRN PRN Reason: Constipation Magnesium Hydroxide (Milk Of Magnesia) 30 ml PO DAILY [facility] Last Admin: 09/20/19 14:00 Dose: 30 ml Documented by: Methylprednisolone Sodium Succinate (Solu-Medrol) 40 mg IV Q6HR [facility] Last Admin: 09/20/19 17:18 Dose: 40 mg Documented by: Montelukast Sodium (Singulair) 10 mg PO QHS [facility] Morphine Sulfate (Morphine) 15 mg PO QHS [facility] Multivitamins/Minerals (Theragran-M Tab) 1 each PO QDAY [facility] Last Admin: 09/20/19 14:00 Dose: 1 each Documented by: Ondansetron HCl (Zofran) 4 mg IV Q8H PRN PRN Reason: Nausea And Vomiting Oxycodone HCl (Roxicodone) 10 mg PO Q6H PRN PRN Reason: Pain , Severe (7-10) Last Admin: 09/20/19 13:59 Dose: 10 mg Documented by: Pantoprazole Sodium (Protonix) 40 mg PO DAILY [facility] Last Admin: 09/20/19 14:00 Dose: 40 mg Documented by: Paroxetine HCl (Paxil) 30 mg PO DAILY [facility] Last Admin: 09/20/19 16:26 Dose: 30 mg Documented by: Pseudoephedrine HCl (Sudafed) 60 mg PO DAILY [facility] Last Admin: 09/20/19 17:19 Dose: 60 mg Documented by: Sodium Chloride (Sodium Chloride Flush Syringe 10 Ml) 10 ml IV PRN PRN PRN Reason: LINE FLUSH Last Admin: 09/19/19 23:00 Dose: 10 ml Documented by: Torsemide (Demadex) 20 mg PO BID@0800,2000 [facility] Last Admin: 09/20/19 14:01 Dose: 20 mg Documented by: Physical Examination Vital signs: Vital Signs Pulse Resp 79 16 09/19/19 13:02 09/19/19 13:02 Results - Laboratory Findings CBC and BMP: 09/20/19 05:14 09/20/19 05:14 ABG POC ABG pH 7.467 (7.35-7.45) H 09/19/19 19:23 POC ABG pCO2 32.1 (35-45) L 09/19/19 19:23 POC ABG pO2 79 (80-105) L 09/19/19 19:23 POC ABG HCO3 23.2 (22-26 mml/L) 09/19/19 19:23 POC ABG Total CO2 24 (23-27mmol/L) 09/19/19 19:23 POC ABG O2 Sat 96 09/19/19 19:23 PT/INR, D-dimer PT 14.2 Sec. (12.2-14.9) 09/20/19 05:14 INR 1.11 (0.87-1.13) 09/20/19 05:14 Abnormal lab findings: Abnormal Labs 09/19/19 09/19/19 09/19/19 15:01 15:01 15:01 WBC Hgb 15.1 H Hct 45.6 H Seg Neuts % (Manual) 96.0 H Lymphocytes % (Manual) 3.0 L Seg Neutrophils # Man 9.5 H Lymphocytes # (Manual) 0.3 L APTT POC ABG pH POC ABG pCO2 POC ABG pO2 Carbon Dioxide 19 L Glucose 262 H POC Glucose Lactic Acid 6.00 H* Calcium Total Protein 6.0 L Albumin 3.7 L 09/19/19 09/19/19 09/19/19 15:01 16:06 18:58 WBC Hgb Hct Seg Neuts % (Manual) Lymphocytes % (Manual) Seg Neutrophils # Man Lymphocytes # (Manual) APTT 21.4 L POC ABG pH POC ABG pCO2 POC ABG pO2 Carbon Dioxide Glucose POC Glucose Lactic Acid 5.90 H* 5.90 H* Calcium Total Protein Albumin 09/19/19 09/19/19 09/20/19 19:23 23:03 00:51 WBC Hgb Hct Seg Neuts % (Manual) Lymphocytes % (Manual) Seg Neutrophils # Man Lymphocytes # (Manual) APTT POC ABG pH 7.467 H POC ABG pCO2 32.1 L POC ABG pO2 79 L Carbon Dioxide Glucose POC Glucose Lactic Acid 6.50 H* 5.10 H* Calcium Total Protein Albumin 09/20/19 09/20/19 09/20/19 05:14 05:14 05:14 WBC 12.4 H Hgb Hct Seg Neuts % (Manual) 95.0 H Lymphocytes % (Manual) 3.0 L Seg Neutrophils # Man 11.8 H Lymphocytes # (Manual) 0.4 L APTT POC ABG pH POC ABG pCO2 POC ABG pO2 Carbon Dioxide 20 L Glucose 222 H POC Glucose Lactic Acid 5.30 H* Calcium 8.2 L Total Protein Albumin 09/20/19 09/20/1919 08:18 11:34 16:33 WBC Hgb Hct Seg Neuts % (Manual) Lymphocytes % (Manual) Seg Neutrophils # Man Lymphocytes # (Manual) APTT POC ABG pH POC ABG pCO2 POC ABG pO2 Carbon Dioxide Glucose POC Glucose 172 H 227 H 243 H Lactic Acid Calcium Total Protein Albumin Assessment and Plan 64 y/o female, obese admitted with shortness of breath after recent diagnosis of pneumonia with therapy. 1. Added BID pulmicort and Brovana therapy 2. Changed scheduled albuterol to PRN 3. Not sure what allergy is to contrast as she had a CTA in 2018 with no issues 4. Continue steroids at current dosing 5. Stopped IVF as patient is also getting bid diuretic therapy 6. Changed CPAP to Bipap as this is what patient was on during last hospital stay 7. Suggest checking procalcitonin level. If normal, should stop abs. See no evidence of pneumonia on CT 8. Check Thyroid studies 9. Suggest reaching out to PCP. Patient is on a lot of pain meds, and other meds that could effect breathing on chronic bases. Will attempt to obtain a med list from our office as well. 10. Weight loss. 11. No idea of what to make of the lactic acid. But if not clinical indication as to why this would be elevated, unsure of how to manage this and why it was checked in the first place. THank you for this consult. Will Continue to follow along with you.
[2019-09-20] MEDS: BUDESONIDE 0.5 MG/2 ML NEBU IH SCH (20:25)
[2019-09-20] MEDS: ARFORMOTEROL 15 MCG/2 ML NEBU IH SCH (20:25)
[2019-09-20] MEDS ORDERED: METRONIDAZOLE 0.75% NOTAPPLIC SCH (22:00)
[2019-09-20] MEDS: MORPHINE 15 MG TAB PO SCH (22:33)
[2019-09-20] MEDS: MONTELUKAST 10 MG TAB PO SCH (22:33)
[2019-09-20] MEDS: CYCLOBENZAPRINE 10 MG TAB PO SCH (22:33)
[2019-09-21] MEDS: VANCOMYCIN/NS 1 GM/250 ML 1 GM/250 ML BAG IV SCH ×2 (01:02→14:52)
[2019-09-21] MEDS: SODIUM CHLORIDE 0.9% 1000 ML 1,000 ML IV SCH (05:44)
[2019-09-21] MEDS: HEPARIN 5,000 UNIT/1 ML VIAL SUB-Q SCH ×3 (05:45→22:16)
[2019-09-21] MEDS: methylPREDNISolone Sod Succinate 40 MG/1 ML INJ IV SCH ×3 (05:45→17:14)
[2019-09-21] MEDS: CEFEPIME/NS 2 GM/100 ML 2 GM/100 ML BAG IV SCH ×3 (05:45→22:14)
[2019-09-21 07:16] LABS: Hematocrit 42.8 % (30.3-42.9); Hemoglobin 14.1 gm/dl (10.1-14.3); Mean Corpuscular HGB Conc 33 % (30-34); Mean Corpuscular Volume 95 fl (79-97); Platelet Count 228 K/mm3 (140-440); Red Blood Count 4.53 M/mm3 (3.65-5.03)
[2019-09-21 07:35] LABS: BUN/Creatinine Ratio 21; Blood Urea Nitrogen 15 mg/dL (7-17); Calcium 8.1 mg/dL (8.4-10.2); Hemolysis Index 10
[2019-09-21] MEDS: oxyCODONE 5 MG TAB PO PRN ×2 (07:46→14:47)
[2019-09-21] MEDS: INSULIN REGULAR, HUMAN 100 UNITS/1 ML SUB-Q SCH ×4 (07:47→22:00)
[2019-09-21] MEDS: ARFORMOTEROL 15 MCG/2 ML NEBU IH SCH ×2 (08:24→20:39)
[2019-09-21] MEDS: BUDESONIDE 0.5 MG/2 ML NEBU IH SCH ×2 (08:24→20:39)
[2019-09-21] MEDS: MAGNESIUM HYDROXIDE (MOM) ORAL LIQD UDC PO SCH (09:17)
[2019-09-21] MEDS: PANTOPRAZOLE 40 MG TAB PO SCH (09:19)
[2019-09-21] MEDS: TORSEMIDE 10 MG TAB PO SCH ×2 (09:19→22:15)
[2019-09-21] MEDS: LORazepam 0.5 MG TAB PO SCH ×2 (09:19→22:16)
[2019-09-21] MEDS: MULTIVITAMINS,THER W-MINERALS TAB PO SCH (09:19)
[2019-09-21] MEDS: GABAPENTIN 100 MG CAP PO SCH ×2 (09:19→22:15)
[2019-09-21] MEDS: LACOSAMIDE 50 MG TAB PO SCH ×2 (09:19→22:15)
[2019-09-21] MEDS: guaiFENesin ER 600 MG TAB PO SCH (09:19)
[2019-09-21] MEDS: CALCIUM CARBONATE 1250 MG TAB PO SCH (09:20)
[2019-09-21] MEDS: PARoxetine 10 MG TAB PO SCH (09:20)
[2019-09-21] MEDS: dilTIAZem CD 120 MG CAP PO SCH (09:25)
[2019-09-21] MEDS: LISINOPRIL 5 MG TAB PO SCH (09:26)
[2019-09-21] MEDS: PSEUDOEPHEDRINE 30 MG TAB PO SCH (09:48)
[2019-09-21] MEDS: LORATADINE (NF) 10 MG TAB PO SCH (09:52)
[2019-09-21] MEDS ORDERED: FEXOFENADINE HCL 180 MG PO SCH (10:00)
--- NOTE | 2019-09-21 11:55 | Consultation ---
History of Present Illness Consult date: 09/21/19 Consult reason: shortness of breath History of present illness: This is a 64-year old woman with chronic lung disease on oxygen, COPD, sleep apnea who was [facility] with shortness of breath, coughs and congestion. Cardiac consultation has been requested. Chest x-ray reports mild interstitial edema. Labs most significant for lactic acidosis. WBC is elevated due to chronic steroid use. An ECG is sinus rhythm with low voltage. Patient has had extensive cardiac workup in the past. October 2014 she underwent a cardiac catheterization that reports normal coronaries, ejection fraction 50%. An echocardiogram showed a normal systolic function, ejection fraction 50-55%. Past History Past Medical History: COPD, diabetes Past Surgical History: cholecystectomy, Other (IVC filter placement, hernia surgery, right hip surgery, sinus surgery, left eye tumor removal) Family history: cancer (Breast cancer in the family), other (Heart disease) Medications and Allergies Allergies Allergy/AdvReac Type Severity Reaction Status Date / Time aspartame Allergy Severe Anaphylaxis Verified 06/16/18 17:41 aspirin Allergy Severe Swelling Verified 06/16/18 17:41 chocolate flavor Allergy Severe Shortness Verified 06/16/18 17:41 of Breath ciprofloxacin [From Cipro] Allergy Severe Shortness Verified 06/16/18 17:41 of Breath diazepam [From Valium] Allergy Severe Shortness Verified 06/16/18 17:41 of Breath fish derived Allergy Severe Anaphylaxis Verified 02/01/19 07:40 levofloxacin [From Levaquin] Allergy Severe Swelling Verified 06/16/18 17:41 Macrolide Antibiotics Allergy Severe Swelling Verified 06/16/18 17:41 midazolam HCl [From Versed] Allergy Severe Shortness Verified 06/16/18 17:41 of Breath monosodium glutamate Allergy Severe Swelling Verified 06/16/18 17:41 oxycodone HCl [From Percocet] Allergy Severe Swelling Verified 06/16/18 17:41 peach [Nash] Allergy Severe Swelling Verified 06/16/18 17:41 peanut Allergy Severe Swelling Verified 06/16/18 17:41 Phenothiazines Allergy Severe Swelling Verified 06/16/18 17:41 propoxyphene napsylate Allergy Severe Swelling Verified 06/16/18 17:41 [From Darvocet-N 100] shellfish derived Allergy Severe Anaphylaxis Verified 02/01/19 07:40 midazolam Allergy Intermediate Rash Verified 06/16/18 17:41 oxycodone [Oxycodone] Allergy Intermediate Rash Verified 06/16/18 17:41 promethazine Allergy Intermediate Nausea Verified 06/16/18 17:41 azithromycin [From Zithromax] Allergy Unknown Swelling Verified 02/01/19 07:37 albuterol [From DuoNeb] Allergy Unknown Verified 09/20/19 01:12 hahn Allergy Unknown Verified 09/20/19 01:03 cucumber Allergy Unknown Verified 09/20/19 00:59 Fish Containing Products Allergy Anaphylaxis Verified 06/16/18 17:41 fluticasone propionate Allergy Shortness Verified 06/16/18 17:41 [From Flonase] of Breath ipratropium [From DuoNeb] Allergy Unknown Verified 09/20/19 01:12 metoclopramide [From Reglan] Allergy Unknown Verified 09/20/19 01:12 metronidazole [From Flagyl] Allergy Unknown Verified 09/20/19 01:12 povidone-iodine Allergy Rash Verified 06/16/18 17:41 [From Betadine] Salicylates * [Salicylates] Allergy Swelling Verified 06/16/18 17:41 soap [From Betadine] Allergy Rash Verified 06/16/18 17:41 soap [From Betadine] Allergy Unknown Verified 09/20/19 01:06 strawberry Allergy Unknown Verified 09/20/19 01:02 Sulfa (Sulfonamide Allergy Swelling Verified 06/16/18 17:41 Antibiotics) temazepam [From Restoril] Allergy Unknown Verified 09/20/19 01:12 Tetracyclines Allergy Swelling Verified 06/16/18 17:41 tomato [Tomato] Allergy Swelling Verified 06/16/18 17:41 tramadol [From Ultram] Allergy Unknown Verified 09/20/19 01:12 turkey Allergy Unknown Verified 09/20/19 01:03 warfarin [From Coumadin] Allergy Unknown Verified 09/20/19 01:12 milk AdvReac Unknown Unknown Verified 02/01/19 07:42 acetaminophen AdvReac Swelling Verified 06/16/18 17:41 [From Darvocet-N 100] codeine AdvReac Nausea Verified 06/16/18 17:41 NSAIDS (Non-Steroidal AdvReac Nausea Verified 06/16/18 17:41 Anti-Inflamma propofol AdvReac Shortness Verified 06/16/18 17:41 of Breath all bread Allergy Swelling Uncoded 09/20/19 08:21 seafood Allergy Anaphylaxis Uncoded 06/16/18 17:41 citrus AdvReac Nausea Uncoded 06/16/18 17:41 dairy AdvReac Nausea Uncoded 06/16/18 17:41 oatmeal AdvReac Nausea Uncoded 06/16/18 17:41 Z-PACK AdvReac Unknown Uncoded 06/20/18 12:03 Home Medications Medication Instructions Recorded Confirmed Last Taken Type ALBUTEROL NEB's [Proventil 0.083% 2.5 mg IH QID 09/19/19 09/20/19 09/19/19 History NEBS] Benazepril HCl [Lotensin] 5 mg PO DAILY 09/19/19 09/20/19 09/19/19 History Cyclobenzaprine [Flexeril] 10 mg PO QHS 09/19/19 09/19/19 09/18/19 History Fexofenadine HCl 180 mg PO QDAY 09/19/19 09/19/19 09/19/19 History Gabapentin [Neurontin] 100 mg PO BID 09/19/19 09/19/19 09/19/19 History Jody-Lanta Liquid 30 ml PO Q8H PRN 09/19/19 09/19/19 09/18/19 History Guaifenesin/Pseudoephedrne HCl 600 mg PO QDAY 09/19/19 09/19/19 09/18/19 History [Mucinex D ER 600-60 mg Tablet] LORazepam [Ativan] 0.5 mg PO BID 09/19/19 09/19/19 09/18/19 History Lacosamide [Vimpat] 50 mg PO Q12HR 09/19/19 09/19/19 09/19/19 History Linagliptin [Tradjenta] 5 mg PO QDAY 09/19/19 09/19/19 09/19/19 History Montelukast [Singulair] 10 mg PO QHS 09/19/19 09/19/19 09/18/19 History Morphine [Morphine TAB] 15 mg PO QHS 09/19/19 09/20/19 09/18/19 History Multivit,Calc,Mins/Iron/Folic 1 tab PO QDAY 09/19/19 09/19/19 09/19/19 History [Thera M Plus Tablet] PARoxetine HCl [Paroxetine] 30 mg PO QDAY 09/19/19 09/19/19 09/19/19 History Pantoprazole Sodium [Protonix] 40 mg PO QDAY 09/19/19 09/19/19 09/19/19 History Potassium Chloride [K-Dur] 20 meq PO BID 09/19/19 09/19/19 09/19/19 History Torsemide [Demadex] 20 mg PO BID 09/19/19 09/19/19 09/19/19 History dilTIAZem [Cardizem] 120 mg PO QDAY 09/19/19 09/19/19 09/19/19 History metroNIDAZOLE 0.75% gel TOPICAL 0.75 applic NOTAPPLIC QHS 09/19/19 09/20/19 09/18/19 History oxyCODONE 10 mg PO Q6HR PRN 09/19/19 09/20/19 09/19/19 History Calcium 600MG TAB 1 tab PO DAILY 09/20/19 09/20/19 09/19/19 History Mag Hydrox/Aluminum Hyd/Simeth 355 ml PO Q6HR PRN 09/20/19 09/20/19 09/18/19 History [Mylanta Maximum Strength Liq] Ondansetron [Zofran TAB] 4 mg PO Q8HR PRN 09/20/19 09/20/19 09/18/19 History Vivas' Milk of Magnesia 1 oralsyr PO DAILY 09/20/19 09/20/19 09/16/19 History Sportscreme 1 applic NOTAPPLIC BID 09/20/19 09/20/19 09/18/19 History Active Meds: Active Medications Acetaminophen (Tylenol) 650 mg PO Q4H PRN PRN Reason: Pain MILD(1-3)/Fever >100.5/[place] Al Hydrox/Mg Hydrox/Simethicone (Alum-Mag Hydrox-Simeth [phone]/5ml) 30 ml PO Q6H PRN PRN Reason: Indigestion Albuterol (Proventil) 2.5 mg IH QIDRT PRN PRN Reason: Dyspnea Arformoterol Tartrate (Brovana Nebu) 15 mcg IH Q12HRT [facility] Last Admin: 09/21/19 08:24 Dose: 15 mcg Documented by: Budesonide (Pulmicort) 0.5 mg IH Q12HRT [facility] Last Admin: 09/21/19 08:24 Dose: 0.5 mg Documented by: Calcium Carbonate/Glycine (Oscal) 1,250 mg PO DAILY [facility] Last Admin: 09/21/19 09:20 Dose: 1,250 mg Documented by: Cyclobenzaprine HCl (Flexeril) 10 mg PO QHS [facility] Last Admin: 09/20/19 22:33 Dose: 10 mg Documented by: Dextrose (D50w (25gm) Syringe) 50 ml IV Q30MIN PRN; Protocol PRN Reason: Hypoglycemia Diltiazem HCl (Cardizem Cd) 120 mg PO QDAY [facility] Last Admin: 09/21/19 09:25 Dose: 120 mg Documented by: Gabapentin (Gabapentin) 100 mg PO BID [facility] Last Admin: 09/21/19 09:19 Dose: 100 mg Documented by: Guaifenesin (Mucinex Er) 600 mg PO DAILY [facility] Last Admin: 09/21/19 09:19 Dose: 600 mg Documented by: Heparin Sodium (Porcine) (Heparin) 5,000 unit SUB-Q Q8HR [facility] Last Admin: 09/21/19 05:45 Dose: 5,000 unit Documented by: Sodium Chloride (Nacl 0.9% 1000 Ml) 1,000 mls @ 100 mls/hr IV DIRECT [facility] Last Admin: 09/21/19 05:44 Dose: 100 mls/hr Documented by: Cefepime HCl (Cefepime/Ns 2 Gm/100 Ml) 2 gm in 100 mls @ 200 mls/hr IV Q8HR [facility]; Protocol Last Admin: 09/21/19 05:45 Dose: 200 mls/hr Documented by: Vancomycin HCl (Vancomycin/Ns 1 Gm/250 Ml) 1 gm in 250 mls @ 167.007 mls/hr IV Q12H [facility] Last Admin: 09/21/19 01:02 Dose: 167.007 mls/hr Documented by: Insulin Human Regular (Humulin R) 0 units SUB-Q ACHS [facility]; Protocol Last Admin: 09/21/19 07:47 Dose: 2 units Documented by: Lacosamide (Vimpat) 50 mg PO Q12HR [facility] Last Admin: 09/21/19 09:19 Dose: 50 mg Documented by: Linagliptin (Tradjenta) 5 mg PO QDAY [facility] Last Admin: 09/20/19 16:24 Dose: 5 mg Documented by: Lisinopril (Zestril) 5 mg PO QDAY [facility] Last Admin: 09/21/19 09:26 Dose: 5 mg Documented by: Loratadine (Claritin) 10 mg PO DAILY [facility] Last Admin: 09/21/19 09:52 Dose: 10 mg Documented by: Lorazepam (Ativan) 0.5 mg PO BID [facility] Last Admin: 09/21/19 09:19 Dose: 0.5 mg Documented by: Magnesium Hydroxide (Milk Of Magnesia) 30 ml PO Q4H PRN PRN Reason: Constipation Magnesium Hydroxide (Milk Of Magnesia) 30 ml PO DAILY [facility] Last Admin: 09/21/19 09:17 Dose: 30 ml Documented by: Methylprednisolone Sodium Succinate (Solu-Medrol) 40 mg IV Q6HR [facility] Last Admin: 09/21/19 05:45 Dose: 40 mg Documented by: Montelukast Sodium (Singulair) 10 mg PO QHS [facility] Last Admin: 09/20/19 22:33 Dose: 10 mg Documented by: Morphine Sulfate (Morphine) 15 mg PO QHS [facility] Last Admin: 09/20/19 22:33 Dose: 15 mg Documented by: Multivitamins/Minerals (Theragran-M Tab) 1 each PO QDAY [facility] Last Admin: 09/21/19 09:19 Dose: 1 each Documented by: Ondansetron HCl (Zofran) 4 mg IV Q8H PRN PRN Reason: Nausea And Vomiting Oxycodone HCl (Roxicodone) 10 mg PO Q6H PRN PRN Reason: Pain , Severe (7-10) Last Admin: 09/21/19 07:46 Dose: 10 mg Documented by: Pantoprazole Sodium (Protonix) 40 mg PO DAILY [facility] Last Admin: 09/21/19 09:19 Dose: 40 mg Documented by: Paroxetine HCl (Paxil) 30 mg PO DAILY [facility] Last Admin: 09/21/19 09:20 Dose: 30 mg Documented by: Pseudoephedrine HCl (Sudafed) 60 mg PO DAILY [facility] Last Admin: 09/21/19 09:48 Dose: 60 mg Documented by: Sodium Chloride (Sodium Chloride Flush Syringe 10 Ml) 10 ml IV PRN PRN PRN Reason: LINE FLUSH Last Admin: 09/19/19 23:00 Dose: 10 ml Documented by: Torsemide (Demadex) 20 mg PO BID@0800,1999 [facility] Last Admin: 09/21/19 09:19 Dose: 20 mg Documented by: Physical Examination Vital Signs Pulse Resp 79 16 09/19/19 13:02 09/19/19 13:02 General appearance: no acute distress HEENT: Positive: PERRL Neck: Positive: trachea midline Cardiac: Positive: Reg Rate and Rhythm Lungs: Positive: Decreased Breath Sounds Neuro: Positive: Grossly Intact Results 09/21/19 06:32 09/21/19 06:32 CBC 09/21/19 Range/Units 06:32 WBC 15.7 H (4.5-11.0) K/mm3 RBC 4.53 (3.65-5.03) M/mm3 Hgb 14.1 (10.1-14.3) gm/dl Hct 42.8 (30.3-42.9) % Plt Count 228 (140-440) K/mm3 Comprehensive Metabolic Panel 09/21/19 Range/Units 06:32 Sodium 142 (137-145) mmol/L Potassium 4.5 (3.6-5.0) mmol/L Chloride 109.3 H (98-107) mmol/L Carbon Dioxide 21 L (22-30) mmol/L BUN 15 (7-17) mg/dL Creatinine 0.7 (0.7-1.2) mg/dL Glucose 195 H (65-100) mg/dL Calcium 8.1 L (8.4-10.2) mg/dL
[2019-09-21] MEDS: LINAGLIPTIN 5 MG TAB PO SCH (12:09)
--- NOTE | 2019-09-21 12:16 | Progress Note ---
Subjective Date of service: 09/21/19 Interval history: No acute events Objective Vital Signs - 12hr 09/21/19 09/21/19 09/21/19 06:05 08:24 08:28 Temperature 97.5 F L Pulse Rate 56 L Pulse Rate [ 70 Anterior Bilateral Throughout] Respiratory 16 Rate Respiratory 20 Rate [Anterior Bilateral Throughout] Blood Pressure 98/34 O2 Sat by Pulse 95 97 96 Oximetry 09/21/19 09/21/19 09/21/19 09:24 09:25 09:26 Temperature Pulse Rate 65 65 Pulse Rate [ Anterior Bilateral Throughout] Respiratory Rate Respiratory Rate [Anterior Bilateral Throughout] Blood Pressure 116/57 116/57 116/57 O2 Sat by Pulse Oximetry CBC and BMP: 09/21/19 06:32 09/21/19 06:32 ABG, PT/INR, D-dimer: ABG POC ABG pH 7.467 (7.35-7.45) H 09/19/19 19:23 POC ABG pCO2 32.1 (35-45) L 09/19/19 19:23 POC ABG pO2 79 (80-105) L 09/19/19 19:23 POC ABG HCO3 23.2 (22-26 mml/L) 09/19/19 19:23 POC ABG Total CO2 24 (23-27mmol/L) 09/19/19 19:23 POC ABG O2 Sat 96 09/19/19 19:23 PT/INR, D-dimer PT 14.2 Sec. (12.2-14.9) 09/20/19 05:14 INR 1.11 (0.87-1.13) 09/20/19 05:14 Abnormal lab findings: Abnormal Labs 09/19/19 09/19/19 09/19/19 15:01 15:01 15:01 WBC Hgb 15.1 H Hct 45.6 H Seg Neuts % (Manual) 96.0 H Lymphocytes % (Manual) 3.0 L Seg Neutrophils # Man 9.5 H Lymphocytes # (Manual) 0.3 L APTT POC ABG pH POC ABG pCO2 POC ABG pO2 Chloride Carbon Dioxide 19 L Glucose 262 H POC Glucose Lactic Acid 6.00 H* Calcium Total Protein 6.0 L Albumin 3.7 L 09/19/19 09/19/19 09/19/19 15:01 16:06 18:58 WBC Hgb Hct Seg Neuts % (Manual) Lymphocytes % (Manual) Seg Neutrophils # Man Lymphocytes # (Manual) APTT 21.4 L POC ABG pH POC ABG pCO2 POC ABG pO2 Chloride Carbon Dioxide Glucose POC Glucose Lactic Acid 5.90 H* 5.90 H* Calcium Total Protein Albumin 09/19/19 09/19/19 09/20/19 19:23 23:03 00:51 WBC Hgb Hct Seg Neuts % (Manual) Lymphocytes % (Manual) Seg Neutrophils # Man Lymphocytes # (Manual) APTT POC ABG pH 7.467 H POC ABG pCO2 32.1 L POC ABG pO2 79 L Chloride Carbon Dioxide Glucose POC Glucose Lactic Acid 6.50 H* 5.10 H* Calcium Total Protein Albumin 09/20/19 09/20/19 09/20/19 05:14 05:14 05:14 WBC 12.4 H Hgb Hct Seg Neuts % (Manual) 95.0 H Lymphocytes % (Manual) 3.0 L Seg Neutrophils # Man 11.8 H Lymphocytes # (Manual) 0.4 L APTT POC ABG pH POC ABG pCO2 POC ABG pO2 Chloride Carbon Dioxide 20 L Glucose 222 H POC Glucose Lactic Acid 5.30 H* Calcium 8.2 L Total Protein Albumin 09/20/19 09/20/19 09/20/19 08:18 11:34 16:33 WBC Hgb Hct Seg Neuts % (Manual) Lymphocytes % (Manual) Seg Neutrophils # Man Lymphocytes # (Manual) APTT POC ABG pH POC ABG pCO2 POC ABG pO2 Chloride Carbon Dioxide Glucose POC Glucose 172 H 227 H 243 H Lactic Acid Calcium Total Protein Albumin 09/20/19 09/20/19 09/20/19 16:52 21:30 22:45 WBC Hgb Hct Seg Neuts % (Manual) Lymphocytes % (Manual) Seg Neutrophils # Man Lymphocytes # (Manual) APTT POC ABG pH POC ABG pCO2 POC ABG pO2 Chloride Carbon Dioxide Glucose POC Glucose 219 H Lactic Acid 5.30 H* 4.40 H* Calcium Total Protein Albumin 09/20/19 09/21/19 09/21/19 23:01 06:32 06:32 WBC 15.7 H Hgb Hct Seg Neuts % (Manual) Lymphocytes % (Manual) Seg Neutrophils # Man Lymphocytes # (Manual) APTT POC ABG pH POC ABG pCO2 POC ABG pO2 Chloride Carbon Dioxide Glucose POC Glucose Lactic Acid 5.30 H* 2.50 H* Calcium Total Protein Albumin 09/21/19 09/21/19 09/21/19 06:32 09:14 11:59 WBC Hgb Hct Seg Neuts % (Manual) Lymphocytes % (Manual) Seg Neutrophils # Man Lymphocytes # (Manual) APTT POC ABG pH POC ABG pCO2 POC ABG pO2 Chloride 109.3 H Carbon Dioxide 21 L Glucose 195 H POC Glucose 151 H Lactic Acid 2.50 H* Calcium 8.1 L Total Protein Albumin
[2019-09-21] MEDS: ALBUTEROL 2.5 MG/3 ML NEBU IH PRN (15:20)
--- NOTE | 2019-09-21 18:28 | Progress Note ---
Assessment and Plan Assessment and plan: Patient is a 64-year-old female presenting to the emergency room complaining of shortness of breath and some chest pain. She has also had some cough which is nonproductive. She was recently diagnosed with pneumonia about 6 weeks ago and was treated with antibiotics. However she indicates she has not been feeling better and I am going to a development coach where she was diagnosed with pneumonia again. * Work-up in the emergency room today including chest x-ray and CT of the chest were unremarkable however she had an elevated lactic acid of about 6. and has continued to trend down but persist * Patient indicates that she has history of COPD and she has not been able to catch her breath over the past few days. She had been given some nebulizing treatments and IV antibiotics in the ER. * Cardiology evaluated the patient wants to get an echocardiogram for left ventricular function reassessment, due to the finding of cardiomegaly on the current chest x-ray. Otherwise feels that pulmonology will help assist with management as noted. * Patient has been requested by pulmonology who graciously is following on the case and does recently report that point as to why lactic acid was checked in the first place and what utility it is here in the first place. I have record of requested records from primary care physician and also previous hospitalization to see if this is a persistent track for this patient. Otherwise we will continue with management as prescribed by the development coach. (1) Pneumonia Current Visit: Yes Status: Acute Plan to address problem: Patient was started on empiric IV antibiotics. Will await blood culture results. Pending pro calcitonin if negative will discontinue antibiotics (2) COPD exacerbation Current Visit: Yes Status: Acute Plan to address problem: She is placed on nebulizing treatment and IV steroids. We will keep O2 saturation greater or equal to 92%. (3) Lactic acidosis Current Visit: Yes Status: Acute Plan to address problem: We will continue patient on IV fluid and antibiotics. Will monitor lactic acid level. (4) HTN (hypertension) Current Visit: No Status: Chronic Qualifiers: Hypertension type: essential hypertension Qualified Code(s): I10 - Essential (primary) hypertension Plan to address problem: Blood pressure stable. We will continue routine home medication. (5) GINNA on CPAP Current Visit: No Status: Chronic Plan to address problem: Patient uses CPAP at home. (6) DVT prophylaxis Current Visit: No Status: Acute Plan to address problem: She has been placed on subcutaneous heparin. (7) Full code status Current Visit: Yes Status: Acute History Interval history: Patient seen and examined, she informs me that she is from [facility] and has had multiple admissions for multiple reasons, but in the last admission also had to deal with high lactate level, she how ever is not sure if it ever resolved. she denies any chest pain nausea vomiting, diarrhea Hospitalist Physical - Physical exam Narrative exam: VITAL SIGNS: Reviewed. GENERAL: The patient appears normally developed, morbidly obese vital signs as documented. HEAD: No signs of head trauma. EYES: Pupils are equal. Extraocular motions intact. EARS: Hearing grossly intact. MOUTH: Oropharynx is normal. NECK: No adenopathy, no JVD. CHEST: Chest with clear breath sounds bilaterally. No wheezes, rales, or rhonchi. CARDIAC: Regular rate and rhythm. S1 and S2, without murmurs, gallops, or rubs. VASCULAR: No Edema. Peripheral pulses normal and equal in all extremities. ABDOMEN: Soft, non tender and non distended. No rebound or guarding, and no masses palpated. Bowel Sounds normal. MUSCULOSKELETAL: Good range of motion of all major joints. Extremities without clubbing, cyanosis or edema. NEUROLOGIC EXAM: Alert and oriented x 3 No focal sensory or strength deficits. Speech normal. Follows commands. PSYCHIATRIC: Mood normal. SKIN: detail exam as documented in skin assessment - Constitutional Vitals: Temp Pulse Resp BP Pulse Ox 98.4 F 83 24 132/61 93 09/21/19 17:15 09/21/19 17:15 09/21/19 17:15 09/21/19 17:15 09/21/19 17:15 General appearance: Present: no acute distress Results - Labs CBC & Chem 7: 09/21/19 06:32 09/21/19 06:32 Labs: Laboratory Last Values WBC 15.7 K/mm3 (4.5-11.0) H 09/21/19 06:32 RBC 4.53 M/mm3 (3.65-5.03) 09/21/19 06:32 Hgb 14.1 gm/dl (10.1-14.3) 09/21/19 06:32 Hct 42.8 % (30.3-42.9) 09/21/19 06:32 MCV 95 fl (79-97) 09/21/19 06:32 MCH 31 pg (28-32) 09/21/19 06:32 MCHC 33 % (30-34) 09/21/19 06:32 RDW 14.0 % (13.2-15.2) 09/21/19 06:32 Plt Count 228 K/mm3 (140-440) 09/21/19 06:32 Add Manual Diff Complete 09/20/19 05:14 Total Counted 100 09/20/19 05:14 Seg Neutrophils % Reservations Specialist 09/20/19 05:14 Seg Neuts % (Manual) 95.0 % (40.0-70.0) H 09/20/19 05:14 Band Neutrophils % 0 % 09/20/19 05:14 Lymphocytes % (Manual) 3.0 % (13.4-35.0) L 09/20/19 05:14 Reactive Lymphs % (Man) 0 % 09/20/19 05:14 Monocytes % (Manual) 2.0 % (0.0-7.3) 09/20/19 05:14 Eosinophils % (Manual) 0 % (0.0-4.3) 09/20/19 05:14 Basophils % (Manual) 0 % (0.0-1.8) 09/20/19 05:14 Metamyelocytes % 0 % 09/20/19 05:14 Myelocytes % 0 % 09/20/19 05:14 Promyelocytes % 0 % 09/20/19 05:14 Blast Cells % 0 % 09/20/19 05:14 Nucleated RBC % Not Reportable 09/20/19 05:14 Seg Neutrophils # Man 11.8 K/mm3 (1.8-7.7) H 09/20/19 05:14 Band Neutrophils # 0.0 K/mm3 09/20/19 05:14 Lymphocytes # (Manual) 0.4 K/mm3 (1.2-5.4) L 09/20/19 05:14 Abs React Lymphs (Man) 0.0 K/mm3 09/20/19 05:14 Monocytes # (Manual) 0.2 K/mm3 (0.0-0.8) 09/20/19 05:14 Eosinophils # (Manual) 0.0 K/mm3 (0.0-0.4) 09/20/19 05:14 Basophils # (Manual) 0.0 K/mm3 (0.0-0.1) 09/20/19 05:14 Metamyelocytes # 0.0 K/mm3 09/20/19 05:14 Myelocytes # 0.0 K/mm3 09/20/19 05:14 Promyelocytes # 0.0 K/mm3 09/20/19 05:14 Blast Cells # 0.0 K/mm3 09/20/19 05:14 WBC Morphology Not Reportable 09/20/19 05:14 Hypersegmented Neuts Not Reportable 09/20/19 05:14 Hyposegmented Neuts Not Reportable 09/20/19 05:14 Hypogranular Neuts Not Reportable 09/20/19 05:14 Smudge Cells Not Reportable 09/20/19 05:14 Toxic Granulation Not Reportable 09/20/19 05:14 Toxic Vacuolation Not Reportable 09/20/19 05:14 Dohle Bodies Not Reportable 09/20/19 05:14 Pelger-Huet Anomaly Not Reportable 09/20/19 05:14 Eduardo Rods Not Reportable 09/20/19 05:14 Platelet Estimate Consistent w auto 09/20/19 05:14 Clumped Platelets Not Reportable 09/20/19 05:14 Plt Clumps, EDTA Not Reportable 09/20/19 05:14 Large Platelets Not Reportable 09/20/19 05:14 Giant Platelets Not Reportable 09/20/19 05:14 Platelet Satelliting Not Reportable 09/20/19 05:14 Plt Morphology Comment Not Reportable 09/20/19 05:14 RBC Morphology Normal 09/20/19 05:14 Dimorphic RBCs Not Reportable 09/20/19 05:14 Polychromasia Not Reportable 09/20/19 05:14 Hypochromasia Not Reportable 09/20/19 05:14 Poikilocytosis Not Reportable 09/20/19 05:14 Anisocytosis Not Reportable 09/20/19 05:14 Microcytosis Not Reportable 09/20/19 05:14 Macrocytosis Not Reportable 09/20/19 05:14 Spherocytes Not Reportable 09/20/19 05:14 Pappenheimer Bodies Not Reportable 09/20/19 05:14 Sickle Cells Not Reportable 09/20/19 05:14 Target Cells Not Reportable 09/20/19 05:14 Tear Drop Cells Not Reportable 09/20/19 05:14 Ovalocytes Not Reportable 09/20/19 05:14 Helmet Cells Not Reportable 09/20/19 05:14 [place] Bodies Not Reportable 09/20/19 05:14 [place] Rings Not Reportable 09/20/19 05:14 Lori Cells Not Reportable 09/20/19 05:14 Bite Cells Not Reportable 09/20/19 05:14 Crenated Cell Not Reportable 09/20/19 05:14 Elliptocytes Not Reportable 09/20/19 05:14 Acanthocytes (Spur) Not Reportable 09/20/19 05:14 Rouleaux Not Reportable 09/20/19 05:14 Hemoglobin C Crystals Not Reportable 09/20/19 05:14 Schistocytes Not Reportable 09/20/19 05:14 Malaria parasites Not Reportable 09/20/19 05:14 Ish Bodies Not Reportable 09/20/19 05:14 Hem Pathologist Commnt No 09/20/19 05:14 PT 14.2 Sec. (12.2-14.9) 09/20/19 05:14 INR 1.11 (0.87-1.13) 09/20/19 05:14 APTT 25.5 Sec. (24.2-36.6) 09/20/19 05:14 POC ABG pH 7.467 (7.35-7.45) H 09/19/19 19:23 POC ABG pCO2 32.1 (35-45) L 09/19/19 19:23 POC ABG pO2 79 (80-105) L 09/19/19 19:23 POC ABG HCO3 23.2 (22-26 mml/L) 09/19/19 19:23 POC ABG Total CO2 24 (23-27mmol/L) 09/19/19 19:23 POC ABG O2 Sat 96 09/19/19 19:23 POC ABG Base Excess 0 ((-2) - (+3)mmol/L) 09/19/19 19:23 FiO2 32 % 09/19/19 19:23 Sodium 142 mmol/L (137-145) 09/21/19 06:32 Potassium 4.5 mmol/L (3.6-5.0) 09/21/19 06:32 Chloride 109.3 mmol/L (98-107) H 09/21/19 06:32 Carbon Dioxide 21 mmol/L (22-30) L 09/21/19 06:32 Anion Gap 16 mmol/L 09/21/19 06:32 BUN 15 mg/dL (7-17) 09/21/19 06:32 Creatinine 0.7 mg/dL (0.7-1.2) 09/21/19 06:32 Estimated GFR > 60 ml/min 09/21/19 06:32 BUN/Creatinine Ratio 21 % 09/21/19 06:32 Glucose 195 mg/dL (65-100) H 09/21/19 06:32 POC Glucose 190 (70-105) H 09/21/19 17:04 Lactic Acid 3.80 mmol/L (0.7-2.0) H* 09/21/19 15:42 Calcium 8.1 mg/dL (8.4-10.2) L 09/21/19 06:32 Total Bilirubin 0.40 mg/dL (0.1-1.2) 09/19/19 15:01 AST 20 units/L (5-40) 09/19/19 15:01 ALT 25 units/L (7-56) 09/19/19 15:01 Alkaline Phosphatase 68 units/L (35-129) 09/19/19 15:01 Troponin T < 0.010 ng/mL (0.00-0.029) 09/19/19 16:06 NT-Pro-B Natriuret Pep 664.9 pg/mL (0-900) 09/20/19 21:30 Total Protein 6.0 g/dL (6.3-8.2) L 09/19/19 15:01 Albumin 3.7 g/dL (3.9-5) L 09/19/19 15:01 Albumin/Globulin Ratio 1.6 % 09/19/19 15:01 Procalcitonin < 0.05 ng/mL (<0.15) 09/20/19 21:30 Urine Color Straw (Yellow) 09/19/19 15:45 Urine Turbidity Clear (Clear) 09/19/19 15:45 Urine pH 7.0 (5.0-7.0) 09/19/19 15:45 Ur Specific [place] 1.006 (1.003-1.030) 09/19/19 15:45 Urine Protein <15 mg/dl mg/dL (Negative) 09/19/19 15:45 Urine Glucose (UA) >=500 mg/dL (Negative) 09/19/19 15:45 Urine Ketones Neg mg/dL (Negative) 09/19/19 15:45 Urine Blood Neg (Negative) 09/19/19 15:45 Urine Nitrite Neg (Negative) 09/19/19 15:45 Urine Bilirubin Neg (Negative) 09/19/19 15:45 Urine Urobilinogen < 2.0 mg/dL (<2.0) 09/19/19 15:45 Ur Leukocyte Esterase Neg (Negative) 09/19/19 15:45 Urine WBC (Auto) 1.0 /HPF (0.0-6.0) 09/19/19 15:45 Urine RBC (Auto) 1.0 /HPF (0.0-6.0) 09/19/19 15:45 U Epithel Cells (Auto) 1.0 /HPF (0-13.0) 09/19/19 15:45 Active Medications - Current Medications Current Medications: Generic Name Dose Route Start Last Admin Trade Name Freq PRN Reason Stop Dose Admin Acetaminophen 650 mg 09/19/19 22:37 Tylenol PO Q4H PRN Pain MILD(1-3)/Fever >100.5/[place] Al Hydrox/Mg Hydrox/Simethicone 30 ml 09/20/19 14:00 09/21/19 14:47 Alum-Mag Hydrox-Simeth 890-578-28ub/5ml PO 30 ml Q6H PRN Administration Indigestion Albuterol 2.5 mg 09/20/19 17:16 09/21/19 15:20 Proventil IH 2.5 mg QIDRT PRN Administration Dyspnea Arformoterol Tartrate 15 mcg 09/20/19 20:00 09/21/19 08:24 Brovana Nebu IH 15 mcg Q12HRT AMY Administration Budesonide 0.5 mg 09/20/19 20:00 09/21/19 08:24 Pulmicort IH 0.5 mg Q12HRT AMY Administration Calcium Carbonate/Glycine 1,250 mg 09/20/19 14:00 09/21/19 09:20 Oscal PO 1,250 mg DAILY AMY Administration Cyclobenzaprine HCl 10 mg 09/20/19 22:00 09/20/19 22:33 Flexeril PO 10 mg QHS AMY Administration Dextrose 50 ml 09/19/19 22:37 D50w (25gm) Syringe IV Q30MIN PRN Hypoglycemia Protocol Diltiazem HCl 120 mg 09/20/19 14:00 09/21/19 09:25 Cardizem Cd PO 120 mg QDAY AMY Administration Gabapentin 100 mg 09/20/19 13:00 09/21/19 09:19 Gabapentin PO 100 mg BID AMY Administration Guaifenesin 600 mg 09/20/19 14:00 09/21/19 09:19 Mucinex Er PO 600 mg DAILY AMY Administration Heparin Sodium (Porcine) 5,000 unit 09/20/19 14:00 09/21/19 14:47 Heparin SUB-Q 5,000 unit Q8HR AMY Administration Sodium Chloride 1,000 mls @ 100 mls/hr 09/19/19 22:45 09/21/19 05:44 Nacl 0.9% 1000 Ml IV 100 mls/hr DIRECT AMY Administration Cefepime HCl 2 gm in 100 mls @ 200 mls/hr 09/20/19 06:00 09/21/19 14:49 Cefepime/Ns 2 Gm/100 Ml IV 200 mls/hr Q8HR AMY Administration Protocol Vancomycin HCl 1 gm in 250 mls @ 167.007 mls/hr 09/20/19 14:00 09/21/19 14:52 Vancomycin/Ns 1 Gm/250 Ml IV 167.007 mls/hr Q12H AMY Administration Insulin Human Regular 0 units 09/20/19 07:30 09/21/19 17:14 Humulin R SUB-Q 2 units ACHS AMY Administration Protocol Lacosamide 50 mg 09/20/19 13:00 09/21/19 09:19 Vimpat PO 50 mg Q12HR AMY Administration Linagliptin 5 mg 09/20/19 17:00 09/21/19 12:09 Tradjenta PO 5 mg QDAY AMY Administration Lisinopril 5 mg 09/20/19 14:00 09/21/19 09:26 Zestril PO 5 mg QDAY AMY Administration Loratadine 10 mg 09/20/19 14:00 09/21/19 09:52 Claritin PO 10 mg DAILY AMY Administration Lorazepam 0.5 mg 09/20/19 14:00 09/21/19 09:19 Ativan PO 0.5 mg BID AMY Administration Magnesium Hydroxide 30 ml 09/19/19 22:37 Milk Of Magnesia PO Q4H PRN Constipation Magnesium Hydroxide 30 ml 09/20/19 14:00 09/21/19 09:17 Milk Of Magnesia PO 30 ml DAILY AMY Administration Methylprednisolone Sodium Succinate 40 mg 09/20/19 00:00 09/21/19 17:14 Solu-Medrol IV 40 mg Q6HR AMY Administration Montelukast Sodium 10 mg 09/20/19 22:00 09/20/19 22:33 Singulair PO 10 mg QHS AMY Administration Morphine Sulfate 15 mg 09/20/19 22:00 09/20/19 22:33 Morphine PO 15 mg QHS AMY Administration Multivitamins/Minerals 1 each 09/20/19 13:00 09/21/19 09:19 Theragran-M Tab PO 1 each QDAY AMY Administration Ondansetron HCl 4 mg 09/19/19 22:37 Zofran IV Q8H PRN Nausea And Vomiting Oxycodone HCl 10 mg 09/20/19 13:19 09/21/19 14:47 Roxicodone PO 10 mg Q6H PRN Administration Pain , Severe (7-10) Pantoprazole Sodium 40 mg 09/20/19 14:00 09/21/19 09:19 Protonix PO 40 mg DAILY AMY Administration Paroxetine HCl 30 mg 09/20/19 14:00 09/21/19 09:20 Paxil PO 30 mg DAILY AMY Administration Pseudoephedrine HCl 60 mg 09/20/19 14:00 09/21/19 09:48 Sudafed PO 60 mg DAILY AMY Administration Sodium Chloride 10 ml 09/19/19 22:37 09/19/19 23:00 Sodium Chloride Flush Syringe 10 Ml IV 10 ml PRN PRN Administration LINE FLUSH Torsemide 20 mg 09/20/19 13:00 09/21/19 09:19 Demadex PO 20 mg BID@0800,2000 AMY Administration
[2019-09-21] MEDS: MONTELUKAST 10 MG TAB PO SCH (22:14)
[2019-09-21] MEDS: CYCLOBENZAPRINE 10 MG TAB PO SCH (22:16)
[2019-09-21] MEDS: MORPHINE 15 MG TAB PO SCH (22:16)
[2019-09-22] MEDS: oxyCODONE 5 MG TAB PO PRN ×2 (01:04→12:25)
[2019-09-22] MEDS: VANCOMYCIN/NS 1 GM/250 ML 1 GM/250 ML BAG IV SCH (02:00)
[2019-09-22] MEDS: methylPREDNISolone Sod Succinate 40 MG/1 ML INJ IV SCH ×4 (06:45→17:07)
[2019-09-22] MEDS: CEFEPIME/NS 2 GM/100 ML 2 GM/100 ML BAG IV SCH (06:45)
[2019-09-22] MEDS: HEPARIN 5,000 UNIT/1 ML VIAL SUB-Q SCH ×2 (06:46→13:34)
[2019-09-22] MEDS: SODIUM CHLORIDE 0.9% 1000 ML 1,000 ML IV SCH (06:47)
[2019-09-22] MEDS: BUDESONIDE 0.5 MG/2 ML NEBU IH SCH (07:50)
[2019-09-22] MEDS: ARFORMOTEROL 15 MCG/2 ML NEBU IH SCH (07:50)
[2019-09-22] MEDS: TORSEMIDE 10 MG TAB PO SCH (08:26)
[2019-09-22] MEDS: INSULIN REGULAR, HUMAN 100 UNITS/1 ML SUB-Q SCH ×3 (08:26→17:07)
[2019-09-22] MEDS: ALBUTEROL 2.5 MG/3 ML NEBU IH PRN ×2 (08:44→18:08)
--- NOTE | 2019-09-22 09:49 | Progress Note ---
Assessment and Plan Chronic shortness of breath CT angiogram and VQ scan are both negative for acute pulmonary embolism. COPD Obstructive sleep apnea Cardiac catheterization in 2015 demonstrated normal coronary arteries. Ejection fraction 50-55%. Echocardiogram this admission reports a normal LVEF. Pulmonary management of her shortness of breath which is likely due to her chronic lung disease. Subjective Date of service: 09/22/19 Interval history: Patient denies chest pain. Reports her breathing is improving. No distress noted. Objective Vital Signs Temp Pulse Pulse Pulse Resp Resp Resp 09/22/19 05:45 97.9 F 63 20 09/22/19 01:04 20 09/22/19 00:05 67 18 09/21/19 22:36 97.7 F 64 20 09/21/19 22:00 20 09/21/19 20:40 68 09/21/19 20:00 20 09/21/19 17:15 98.4 F 83 24 09/21/19 15:20 66 20 09/21/19 11:48 98.2 F 65 24 Resp BP Pulse Ox 09/22/19 05:45 114/56 97 09/22/19 01:04 09/22/19 00:05 141/59 97 09/21/19 22:36 141/59 96 09/21/19 22:00 96 09/21/19 20:40 20 09/21/19 20:00 09/21/19 17:15 132/61 93 09/21/19 15:20 09/21/19 11:48 141/73 93 - Physical Examination General: No Apparent Distress HEENT: Positive: PERRL Neck: Positive: trachea midline Cardiac: Positive: Reg Rate and Rhythm Lungs: Positive: Decreased Breath Sounds Neuro: Positive: Grossly Intact
[2019-09-22] MEDS: LACOSAMIDE 50 MG TAB PO SCH (10:31)
[2019-09-22] MEDS: MAGNESIUM HYDROXIDE (MOM) ORAL LIQD UDC PO SCH (10:31)
[2019-09-22] MEDS: guaiFENesin ER 600 MG TAB PO SCH (10:31)
[2019-09-22] MEDS: MULTIVITAMINS,THER W-MINERALS TAB PO SCH (10:32)
[2019-09-22] MEDS: LORazepam 0.5 MG TAB PO SCH (10:32)
[2019-09-22] MEDS: LINAGLIPTIN 5 MG TAB PO SCH (10:32)
[2019-09-22] MEDS: PANTOPRAZOLE 40 MG TAB PO SCH (10:32)
[2019-09-22] MEDS: LISINOPRIL 5 MG TAB PO SCH (10:32)
[2019-09-22] MEDS: dilTIAZem CD 120 MG CAP PO SCH (10:32)
[2019-09-22] MEDS: GABAPENTIN 100 MG CAP PO SCH (10:33)
[2019-09-22] MEDS: LORATADINE (NF) 10 MG TAB PO SCH (10:33)
[2019-09-22] MEDS: CALCIUM CARBONATE 1250 MG TAB PO SCH (10:33)
[2019-09-22] MEDS: PARoxetine 10 MG TAB PO SCH (10:34)
[2019-09-22] MEDS: PSEUDOEPHEDRINE 30 MG TAB PO SCH (12:25)
--- NOTE | 2019-09-22 12:52 | Discharge Summary ---
Providers - Providers Date of Admission: 09/19/19 22:41 Attending physician: MICHAEL MAYS MD 09/20/19 07:42 Consult to Physician [CONS] Routine Comment: Consulting Provider: CORI UNDERWOOD Physician Instructions: Reason For Exam: shortness of breath 09/20/19 16:02 Consult to Physician [CONS] Routine Comment: Consulting Provider: MARIBELL CONLEY Physician Instructions: Reason For Exam: Shortness of breath Primary care physician: [facility] NURSE Hospitalization Reason for admission: pneumonia Condition: Stable Hospital course: Patient is a 64-year-old female presenting to the emergency room complaining of shortness of breath and some chest pain. She has also had some cough which is nonproductive. She was recently diagnosed with pneumonia about 6 weeks ago and was treated with antibiotics. However she indicates she has not been feeling better and I am going to a bilingual teacher assistant where she was diagnosed with pneumonia again. * Work-up in the emergency room today including chest x-ray and CT of the chest were unremarkable however she had an elevated lactic acid of about 6. and has continued to trend down but persist * Patient indicates that she has history of COPD and she has not been able to catch her breath over the past few days. She had been given some nebulizing treatments and IV antibiotics in the ER. * Cardiology evaluated the patient wants to get an echocardiogram for left ventricular function reassessment, due to the finding of cardiomegaly on the current chest x-ray. Otherwise feels that pulmonology will help assist with management as noted. * Patient has been requested by pulmonology who graciously is following on the case and does recently report that point as to why lactic acid was checked in the first place and what utility it is here in the first place. I have record of requested records from primary care physician and also previous hospitalization to see if this is a persistent track for this patient. Otherwise we will continue with management as prescribed by the bilingual teacher assistant. * Procalcitonin was checked and negative. abx change to po * patients clinical condition improved, although she reported some non specific complaints which at this time i belive can be managemed outpatient (1) Pneumonia (2) COPD exacerbation (3) Lactic acidosis-chronic (4) HTN (hypertension) (5) GINNA on CPAP Disposition: TO HOME OR SELFCARE Time spent for discharge: 35 mins Core Measure Documentation - Palliative Care Palliative Care/ Comfort Measures: Not Applicable - Core Measures Any of the following diagnoses?: none Exam - Physical Exam Narrative exam: VITAL SIGNS: Reviewed. GENERAL: The patient appears normally developed, morbidly obese vital signs as documented. HEAD: No signs of head trauma. EYES: Pupils are equal. Extraocular motions intact. EARS: Hearing grossly intact. MOUTH: Oropharynx is normal. NECK: No adenopathy, no JVD. CHEST: Chest with clear breath sounds bilaterally. No wheezes, rales, or rhonchi. CARDIAC: Regular rate and rhythm. S1 and S2, without murmurs, gallops, or rubs. VASCULAR: No Edema. Peripheral pulses normal and equal in all extremities. ABDOMEN: Soft, non tender and non distended. No rebound or guarding, and no masses palpated. Bowel Sounds normal. MUSCULOSKELETAL: Good range of motion of all major joints. Extremities without clubbing, cyanosis or edema. NEUROLOGIC EXAM: Alert and oriented x 3 No focal sensory or strength deficits. Speech normal. Follows commands. PSYCHIATRIC: Mood normal. SKIN: detail exam as documented in skin assessment - Constitutional Vitals: Temp Pulse Resp BP Pulse Ox 97.9 F 63 20 114/56 97 09/22/19 05:45 09/22/19 05:45 09/22/19 12:25 09/22/19 10:32 09/22/19 05:45 Plan Activity: advance as tolerated, fall precautions Diet: low fat Special Instructions: record daily weights, record daily BP diary Follow up with: VINH GODOY MD [Primary Care Provider] - 3-5 Days CORI UNDERWOOD MD [Staff Physician] - 7 Days MARIBELL CONLEY MD [Staff Physician] - 7 Days Prescriptions: Amoxicillin/Potassium Clav [Augmentin 875-125 Tablet] 1 each PO DAILY #3 tablet predniSONE [Deltasone] 10 mg PO . DIR #10 tab guaiFENesin ER [Mucinex ER] 600 mg PO DAILY #14 tablet
--- NOTE | 2019-09-22 13:07 | Progress Note ---
Assessment and Plan 64 y/o female, obese admitted with shortness of breath after recent diagnosis of pneumonia with therapy. 1. No objection to discharge. Very rapid steroid taper. Resume home COPD regimen. Follow up with John in 10-14 days. Subjective Date of service: 09/22/19 Interval history: No acute events. Called by [facility] about discharging today. Objective Vital Signs - 12hr 09/22/19 09/22/19 09/22/19 05:45 07:50 08:44 Temperature 97.9 F Pulse Rate 63 Pulse Rate [ 70 69 Anterior Bilateral Throughout] Respiratory 20 Rate Respiratory 20 20 Rate [Anterior Bilateral Throughout] Blood Pressure 114/56 O2 Sat by Pulse 97 96 Oximetry 09/22/19 09/22/19 09/22/19 10:00 10:32 12:25 Temperature Pulse Rate Pulse Rate [ Anterior Bilateral Throughout] Respiratory 20 20 Rate Respiratory Rate [Anterior Bilateral Throughout] Blood Pressure 114/56 O2 Sat by Pulse Oximetry CBC and BMP: 09/21/19 06:32 09/21/19 06:32 ABG, PT/INR, D-dimer: ABG POC ABG pH 7.467 (7.35-7.45) H 09/19/19 19:23 POC ABG pCO2 32.1 (35-45) L 09/19/19 19:23 POC ABG pO2 79 (80-105) L 09/19/19 19:23 POC ABG HCO3 23.2 (22-26 mml/L) 09/19/19 19:23 POC ABG Total CO2 24 (23-27mmol/L) 09/19/19 19:23 POC ABG O2 Sat 96 09/19/19 19:23 PT/INR, D-dimer PT 14.2 Sec. (12.2-14.9) 09/20/19 05:14 INR 1.11 (0.87-1.13) 09/20/19 05:14 Abnormal lab findings: Abnormal Labs 09/19/19 09/19/19 09/19/19 15:01 15:01 15:01 WBC Hgb 15.1 H Hct 45.6 H Seg Neuts % (Manual) 96.0 H Lymphocytes % (Manual) 3.0 L Seg Neutrophils # Man 9.5 H Lymphocytes # (Manual) 0.3 L APTT POC ABG pH POC ABG pCO2 POC ABG pO2 Chloride Carbon Dioxide 19 L Glucose 262 H POC Glucose Lactic Acid 6.00 H* Calcium Total Protein 6.0 L Albumin 3.7 L 09/19/19 09/19/19 09/19/19 15:01 16:06 18:58 WBC Hgb Hct Seg Neuts % (Manual) Lymphocytes % (Manual) Seg Neutrophils # Man Lymphocytes # (Manual) APTT 21.4 L POC ABG pH POC ABG pCO2 POC ABG pO2 Chloride Carbon Dioxide Glucose POC Glucose Lactic Acid 5.90 H* 5.90 H* Calcium Total Protein Albumin 09/19/19 09/19/19 09/20/19 19:23 23:03 00:51 WBC Hgb Hct Seg Neuts % (Manual) Lymphocytes % (Manual) Seg Neutrophils # Man Lymphocytes # (Manual) APTT POC ABG pH 7.467 H POC ABG pCO2 32.1 L POC ABG pO2 79 L Chloride Carbon Dioxide Glucose POC Glucose Lactic Acid 6.50 H* 5.10 H* Calcium Total Protein Albumin 09/20/19 09/20/19 09/20/19 05:14 05:14 05:14 WBC 12.4 H Hgb Hct Seg Neuts % (Manual) 95.0 H Lymphocytes % (Manual) 3.0 L Seg Neutrophils # Man 11.8 H Lymphocytes # (Manual) 0.4 L APTT POC ABG pH POC ABG pCO2 POC ABG pO2 Chloride Carbon Dioxide 20 L Glucose 222 H POC Glucose Lactic Acid 5.30 H* Calcium 8.2 L Total Protein Albumin 09/20/19 09/20/19 09/20/19 08:18 11:34 16:33 WBC Hgb Hct Seg Neuts % (Manual) Lymphocytes % (Manual) Seg Neutrophils # Man Lymphocytes # (Manual) APTT POC ABG pH POC ABG pCO2 POC ABG pO2 Chloride Carbon Dioxide Glucose POC Glucose 172 H 227 H 243 H Lactic Acid Calcium Total Protein Albumin 09/20/19 09/20/19 09/20/19 16:52 21:30 22:45 WBC Hgb Hct Seg Neuts % (Manual) Lymphocytes % (Manual) Seg Neutrophils # Man Lymphocytes # (Manual) APTT POC ABG pH POC ABG pCO2 POC ABG pO2 Chloride Carbon Dioxide Glucose POC Glucose 219 H Lactic Acid 5.30 H* 4.40 H* Calcium Total Protein Albumin 09/20/19 09/21/19 09/21/19 23:01 06:32 06:32 WBC 15.7 H Hgb Hct Seg Neuts % (Manual) Lymphocytes % (Manual) Seg Neutrophils # Man Lymphocytes # (Manual) APTT POC ABG pH POC ABG pCO2 POC ABG pO2 Chloride Carbon Dioxide Glucose POC Glucose Lactic Acid 5.30 H* 2.50 H* Calcium Total Protein Albumin 09/21/19 09/21/19 09/21/19 06:32 07:46 09:14 WBC Hgb Hct Seg Neuts % (Manual) Lymphocytes % (Manual) Seg Neutrophils # Man Lymphocytes # (Manual) APTT POC ABG pH POC ABG pCO2 POC ABG pO2 Chloride 109.3 H Carbon Dioxide 21 L Glucose 195 H POC Glucose 181 H Lactic Acid 2.50 H* Calcium 8.1 L Total Protein Albumin 09/21/19 09/21/19 09/21/19 11:59 15:42 17:04 WBC Hgb Hct Seg Neuts % (Manual) Lymphocytes % (Manual) Seg Neutrophils # Man Lymphocytes # (Manual) APTT POC ABG pH POC ABG pCO2 POC ABG pO2 Chloride Carbon Dioxide Glucose POC Glucose 151 H 190 H Lactic Acid 3.80 H* Calcium Total Protein Albumin 09/21/19 09/21/19 09/22/19 17:52 22:44 06:41 WBC Hgb Hct Seg Neuts % (Manual) Lymphocytes % (Manual) Seg Neutrophils # Man Lymphocytes # (Manual) APTT POC ABG pH POC ABG pCO2 POC ABG pO2 Chloride Carbon Dioxide Glucose POC Glucose 280 H Lactic Acid 4.00 H* 2.50 H* Calcium Total Protein Albumin 09/22/19 09/22/19 09/22/19 08:10 08:25 12:08 WBC Hgb Hct Seg Neuts % (Manual) Lymphocytes % (Manual) Seg Neutrophils # Man Lymphocytes # (Manual) APTT POC ABG pH POC ABG pCO2 POC ABG pO2 Chloride Carbon Dioxide Glucose POC Glucose 153 H 215 H Lactic Acid 2.40 H* Calcium Total Protein Albumin
[2019-09-22 14:39] VITALS: BP 111/52
== END 2019-09-22 18:30 | DRG 190 ==
LOC: ED 12:43 → 3A 22:41
PROVIDERS: ADMIT Internal Medicine Geriatric Medicine; ATTEND Internal Medicine
PROC: 4A033R1 Measurement of Arterial Saturation, Peripheral, Percutaneous Approach (ICD-10-PCS; 2019-09-19)
PROC: 5A09357 Assistance with Respiratory Ventilation, Less than 24 Consecutive Hours, Continuous Positive Airway Pressure (ICD-10-PCS; principal; 2019-09-20)
PROC: 5A09357 Assistance with Respiratory Ventilation, Less than 24 Consecutive Hours, Continuous Positive Airway Pressure (ICD-10-PCS; 2019-09-22)
DX: J44.1 Chronic obstructive pulmonary disease with (acute) exacerbation (principal); J18.9 Pneumonia, unspecified organism; E87.2 Acidosis; Z68.42 Body mass index [BMI] 45.0-49.9, adult; J44.0 Chronic obstructive pulmonary disease with (acute) lower respiratory infection; I11.0 Hypertensive heart disease with heart failure; I50.9 Heart failure, unspecified; E11.9 Type 2 diabetes mellitus without complications; K21.9 Gastro-esophageal reflux disease without esophagitis; F41.9 Anxiety disorder, unspecified; E66.9 Obesity, unspecified; G47.30 Sleep apnea, unspecified; Z79.51 Long term (current) use of inhaled steroids; Z79.899 Other long term (current) drug therapy; Z88.6 Allergy status to analgesic agent; Z88.4 Allergy status to anesthetic agent; Z88.1 Allergy status to other antibiotic agents; Z88.3 Allergy status to other anti-infective agents; Z91.041 Radiographic dye allergy status; Z91.011 Allergy to milk products; Z88.5 Allergy status to narcotic agent; Z91.018 Allergy to other foods; Z91.010 Allergy to peanuts; Z88.2 Allergy status to sulfonamides; Z88.8 Allergy status to other drugs, medicaments and biological substances; Z91.048 Other nonmedicinal substance allergy status; Z91.09 Other allergy status, other than to drugs and biological substances; Z86.711 Personal history of pulmonary embolism; Z90.710 Acquired absence of both cervix and uterus; Z87.891 Personal history of nicotine dependence; Z90.49 Acquired absence of other specified parts of digestive tract; Z80.3 Family history of malignant neoplasm of breast; Z79.84 Long term (current) use of oral hypoglycemic drugs
CPT/HCPCS: 36415; 71045; 71250; 78582; 80048; 80053; 81001; 82140; 82803; 82962; 83880; 84145; 84484; 85007; 85025; 85027; 85610; 85730; 87040; 87086; 87116; 93005; 93010; 93306; 94640; 94644; 94660; 94760; G0378; A9540; A9558; J0692; J1644; J1815; J2405; J2920; J2930; J3370; J7030; J7040

== ENCOUNTER 2020-01-17 19:19 | Emergency (ER) | payer MEDICARE ==
--- NOTE | 2020-01-17 19:41 | Emergency Department Report ---
HPI - General Time Seen by Provider: 01/17/20 19:34 - HPI HPI: Room 8 The patient is a 64-year-old female presenting with a chief complaint of cardiac arrest. Per EMS the patient is a confirmed case of [place] 19. The patient was [facility] unresponsive at the [facility]. EMS states that the patient is DNR and they have accompanying paperwork. No CPR was performed en route. Upon arrival to the ED the patient was apneic, PEA on monitor and no heart sounds. There was no return of spontaneous circulation ED Past Medical Hx - Past Medical History Hx Hypertension: Yes Hx Congestive Heart Failure: Yes Hx Diabetes: Yes Hx Pulmonary Embolism: Yes Hx GERD: Yes Hx Liver Disease: Yes Hx Arthritis: Yes Hx Seizures: Yes Hx Psychiatric Treatment: Yes (anxiety) Hx Asthma: Yes Hx COPD: Yes Additional medical history: thoracic spine pain, t-12 burst fracture; PE - Surgical History Hx Cholecystectomy: Yes Additional Surgical History: hysterectomy, umbilical hernia; hip replacement. IVC Filter in left groin 2012 - Family History Family history: no significant - Social History Smoking Status: Unknown if ever smoked - Medications Home Medications: Home Medications Medication Instructions Recorded Confirmed Last Taken Type ALBUTEROL NEB's [Proventil 0.083% 2.5 mg IH QID 09/19/19 09/20/19 09/19/19 History NEBS] Benazepril HCl [Lotensin] 5 mg PO DAILY 09/19/19 09/20/19 09/19/19 History Cyclobenzaprine [Flexeril 10 MG 10 mg PO QHS 09/19/19 09/19/19 09/18/19 History TAB] Fexofenadine HCl 180 mg PO QDAY 09/19/19 09/19/19 09/19/19 History Gabapentin 100 mg PO BID 09/19/19 09/19/19 09/19/19 History Jody-Lanta Liquid 30 ml PO Q8H PRN 09/19/19 09/19/19 09/18/19 History Guaifenesin/Pseudoephedrne HCl 600 mg PO QDAY 09/19/19 09/19/19 09/18/19 History [Mucinex D ER 600-60 mg Tablet] LORazepam [Ativan] 0.5 mg PO BID 09/19/19 09/19/19 09/18/19 History Lacosamide [Vimpat] 50 mg PO Q12HR 09/19/19 09/19/19 09/19/19 History Linagliptin [Tradjenta] 5 mg PO QDAY 09/19/19 09/19/19 09/19/19 History Montelukast [Singulair] 10 mg PO QHS 09/19/19 09/19/19 09/18/19 History Morphine [Morphine TAB] 15 mg PO QHS 09/19/19 09/20/19 09/18/19 History Multivit,Calc,Mins/Iron/Folic 1 tab PO QDAY 09/19/19 09/19/19 09/19/19 History [Thera M Plus Tablet] PARoxetine HCl [Paroxetine] 30 mg PO QDAY 09/19/19 09/19/19 09/19/19 History Pantoprazole Sodium [Protonix] 40 mg PO QDAY 09/19/19 09/19/19 09/19/19 History Potassium Chloride [K-Dur] 20 meq PO BID 09/19/19 09/19/19 09/19/19 History Torsemide [Demadex] 20 mg PO BID 09/19/19 09/19/19 09/19/19 History dilTIAZem [Cardizem] 120 mg PO QDAY 09/19/19 09/19/19 09/19/19 History metroNIDAZOLE 0.75% gel TOPICAL 0.75 applic NOTAPPLIC QHS 09/19/19 09/20/19 09/18/19 History oxyCODONE 10 mg PO Q6HR PRN 09/19/19 09/20/19 09/19/19 History Calcium 600MG TAB 1 tab PO DAILY 09/20/19 09/20/19 09/19/19 History Mag Hydrox/Aluminum Hyd/Simeth 355 ml PO Q6HR PRN 09/20/19 09/20/19 09/18/19 History [Mylanta Maximum Strength Liq] Ondansetron [Zofran TAB] 4 mg PO Q8HR PRN 09/20/19 09/20/19 09/18/19 History Vivas' Milk of Magnesia 1 oralsyr PO DAILY 09/20/19 09/20/19 09/16/19 History Sportscreme 1 applic NOTAPPLIC BID 09/20/19 09/20/19 09/18/19 History Amoxicillin/Potassium Clav 1 each PO DAILY #3 tablet 09/22/19 Unknown Rx [Augmentin 875-125 Tablet] guaiFENesin ER [Mucinex ER] 600 mg PO DAILY #14 tablet 09/22/19 Unknown Rx predniSONE [Deltasone] 10 mg PO . DIR #10 tab 09/22/19 Unknown Rx ED Review of Systems ROS: Stated complaint: UNRESPONSIVE Other details as noted in HPI Comment: Unobtainable due to pts medical conditions Physical Exam - Physical Exam Physical Exam: GENERAL: The patient is well-developed well-nourished female lying on stretcher apneic and pulseless. No CPR being performed by EMS. [] HEENT: Normocephalic. Atraumatic. Negative oculocephalic reflex NECK: Trachea midline CHEST/LUNGS: No respirations HEART/CARDIOVASCULAR: No heart sounds ABDOMEN: Abdomen is soft There is no abdominal distention. SKIN: There is no rash. There is no edema. There is no diaphoresis. NEURO: GCS 3 MUSCULOSKELETAL: There is no evidence of acute injury. ED Medical Decision Making - Differential Diagnosis Cardiac arrest Critical care attestation.: If time is entered above; I have spent that time in minutes in the direct care of this critically ill patient, excluding procedure time. ED Disposition Clinical Impression: Cardiac arrest Disposition: DC-20 Is pt being admited?: No Does the pt Need Aspirin: No Condition: Poor Time of Disposition: 19:34 (Patient )
== END 2020-01-18 00:48 ==
LOC: ED 19:19
DX: I46.9 Cardiac arrest, cause unspecified (principal); I11.0 Hypertensive heart disease with heart failure; I50.9 Heart failure, unspecified; E11.9 Type 2 diabetes mellitus without complications; K21.9 Gastro-esophageal reflux disease without esophagitis; M19.90 Unspecified osteoarthritis, unspecified site; F41.9 Anxiety disorder, unspecified; J44.9 Chronic obstructive pulmonary disease, unspecified
CPT/HCPCS: 99285